=== PATIENT | female | born 1950 | race Caucasian/White ===

== ENCOUNTER 2017-04-05 12:43 | Inpatient (IN) ==
[2017-04-05 14:11] LABS: Basophils % 0.1 %; Hematocrit 27.2 % (35.3-44.9); Immature Granulocytes % 0.4 % (0-4); Lymphocytes # 0.9 K/mcL (0.6-4.6); Lymphocytes % 7.8 %; Mean Corpuscular HGB Conc 26.1 g/dL (31.6-35.5); Mean Corpuscular Hemoglobin 17.1 pg (28.0-33.3); Mean Corpuscular Volume 65.4 fL (83.0-100.0); Mean Platelet Volume 10.8 fL (9.4-12.4); Monocytes # 0.6 K/mcL (0.0-1.3); Monocytes % 5.3 %; Neutrophils # 9.6 K/mcL (1.6-8.9); Platelet Count 360 K/mcL (140-400); Red Blood Count 4.16 M/mcL (3.82-4.97); Red Cell Distribution Width 20.5 % (11.5-14.5); Segmented Neutrophils % 86.4 %
[2017-04-05 14:26] LABS: Alanine Aminotransferase 17 Units/L (0-55); Albumin 3.6 g/dL (3.5-5.0); Albumin/Globulin Ratio 0.9 (1.1-2.2); Alkaline Phosphatase 73 Units/L (38-126); Amylase 55 Units/L (25-125); Aspartate Amino Transferase 24 Units/L (5-34); BUN/Creatinine Ratio 14 (6-26); Bilirubin,Direct 0.4 mg/dL (0.0-0.5); Bilirubin,Indirect 0.5 mg/dL (0.0-1.2); Bilirubin,Total 0.9 mg/dL (0.2-1.2); Blood Urea Nitrogen 12 mg/dL (7-20); Carbon Dioxide 30 mEq/L (19-29); Chloride 102 mEq/L (98-109); Globulin 3.9 g/dL (2.4-3.5); Glucose 131 mg/dL (70-99); Lipase 21 Units/L (8-78); Osmolality,Calculated 292 (280-300); Potassium 3.1 mEq/L (3.5-4.5); Sodium 140 mEq/L (136-145); Total Protein 7.5 g/dL (6.0-8.3); eGFR For African Americans > 60 (> 60); eGFR For Non-African Americans > 60 (> 60)
[2017-04-05 14:42] LABS: Hemoglobin 7.1 g/dL (11.5-15.4)
[2017-04-05 14:43] LABS: Anisocytosis 1+ (Not Present); Hypochromasia Present (Not Present); Microcytosis Present (Not Present); Platelet Estimate Normal (Normal)
[2017-04-05] MEDS ORDERED: 0.9 % Sodium Chloride 1,000 ML IVC ONE (15:54)
[2017-04-05] MEDS ORDERED: Pantoprazole 40 MG VIAL IVP ONE (15:54)
[2017-04-05] MEDS ORDERED: Ondansetron 4 MG/2 ML VIAL IVP ONE (15:54)
[2017-04-05 17:22] LABS: Bilirubin,Urine Negative (Negative); Blood,Urine Negative (Negative); Clarity,Urine Cloudy (Clear); Color,Urine Dark Yellow (Yellow); Glucose,Urine (UA) Normal (Normal); Ketones,Urine Trace mg/dL (Negative); Leukocyte Esterase,Urine Negative (Negative); Nitrite,Urine Negative (Negative); PH,Urine 5.5 pH Units (5.0-8.0); Protein,Urine 30 mg/dL (Neg-Trace); Urobilinogen,Urine Normal (Normal)
[2017-04-05 17:24] LABS: Bacteria,Urine Moderate per hpf (None-Few); Hyaline Casts,Urine None Seen per lpf (None-Few); RBC,Urine 0-3 per hpf (0-3); Squamous Epithelial Cell,Urine Many per lpf (None-Few); WBC,Urine 0-3 per hpf (0-3)
[2017-04-05 19:14] LABS: INR 1.1; Prothrombin Time 12.4 Seconds (9.4-12.1)
[2017-04-05] MEDS ORDERED: Ondansetron 4 MG/2 ML VIAL IVP PRN (21:55)
[2017-04-05] MEDS ORDERED: *HR* Metoprolol 5 MG/5 ML VIAL IVP PRN (21:56)
[2017-04-05] MEDS ORDERED: *HR* Morphine 2 MG/ML SYRINGE IVP PRN (21:57)
[2017-04-05] MEDS: 0.9 % Sodium Chloride 1,000 ML IVC SCH (23:03)
--- NOTE | 2017-04-06 01:25 | Emergency Department Note ---
Disposition Clinical Impression: Bowel obstruction Qualifiers: Intestinal obstruction type: unspecified Qualified Code(s): K56.60 - Unspecified intestinal obstruction Disposition: Admitted As Inpatient Condition: Good General Adult HPI - General Chief complaint: ED Nausea/Vomiting/Diarrhea Stated complaint: nausea, vomiting Time Seen by Provider: 04/05/17 15:17 Source: patient Limitations: no limitations Nursing Notes Reviewed: Yes Vital Signs Reviewed: Yes - History of Present Illness HPI Narrative: This is a 58-year-old female with a history of colonic mass and previous resection by Dr. Sol presenting today with concern for nausea, vomiting, diarrhea. She lets her symptoms of been worsening for one week. She had known stricture previously in her colon and is concerned that there is possible an obstructive etiology. She has no fever, recent antibiotics use. Vital signs are stable on arrival. Pain Scale: 0 - Related Data Home Medications Medication Instructions Recorded Confirmed Aspirin [Lo-Dose Aspirin EC] 81 mg PO DAILY 04/05/17 04/05/17 Lisinopril [Zestril] 20 mg PO DAILY 04/05/17 04/05/17 Allergies Allergy/AdvReac Type Severity Reaction Status Date / Time No Known Allergies Allergy Verified 04/05/17 12:51 All systems ED: reviewed and negative except as stated. Past Medical History - Past Medical History Medical history: Reports: cancer, hypertension Surgical history: Reports: cholecystectomy Psychiatric history: Reports: no psych history - Social History Smoking Status: Never smoker Smokeless Tobacco Status: No Alcohol use: Reports: none Drug use: Reports: none Physical Exam - General Limitations: no limitations General appearance: alert - Head Head exam: atraumatic - Eye Eye exam: Present: normal appearance - ENT ENT exam: normal exam, normal oropharynx - Neck Neck exam: Present: normal inspection - Chest Chest inspection: Present: normal inspection - Respiratory Respiratory exam: Present: normal lung sounds bilaterally - Cardiovascular Cardiovascular exam: Present: regular rate, normal rhythm - Abdominal Exam Abdominal exam: Present: soft - Extremities Exam Extremities exam: Present: normal inspection - Expanded Lower Extremity Exam Hip/Pelvis exam: Present: normal inspection Neurovascular/Tendon exam: Present: normal capillary refill Gait: observed and normal - Back Exam Back exam: Present: normal inspection - Neurological Exam Neurological exam: Present: alert, oriented X3 - Psychiatric Psychiatric exam: Present: normal affect - Skin Skin exam: Present: warm, dry Course Vital Signs Temperature 98.1 F 04/05/17 12:53 Pulse Rate 87 04/05/17 12:53 Respiratory Rate 20 04/05/17 12:53 Blood Pressure 208/76 04/05/17 12:53 O2 Sat by Pulse Oximetry 99 04/05/17 12:53 Temperature 98.0 F 04/10/17 06:26 Pulse Rate 76 04/10/17 06:26 Respiratory Rate 17 04/10/17 06:26 Blood Pressure 169/82 04/10/17 06:26 O2 Sat by Pulse Oximetry 96 04/10/17 06:26 Oxygen Delivery Oxygen Delivery Room Air Medical Decision Making - MDM Narrative Medical decision making narrative: Female patient with previous colonic mass and previous resection who presents now with concern for nonspecific abdominal complaints. She has no true pain or peritonitis on arrival. She was found to subsequently have bowel obstruction after a CT scan with both IV and oral contrast was obtained. She does have evidence of colonic distention as well as obstruction at the anastomosis site. I discussed the case with the on-call surgeon who recommended placement of an NG tube. Additionally recommended obtaining a CEA level. Plan to admit to surgical services for further evaluation of bowel obstruction. - Medical Records Medical records reviewed: Yes I reviewed the patient's medical records. - Lab Data Lab results reviewed: Yes I reviewed the patient's lab results. Result diagrams: 04/10/17 05:32 04/10/17 05:32 Lab Results 04/05/17 04/05/17 04/05/17 Range/Units 14:00 14:01 14:01 WBC 11.1 (4.3-11.1) K/mcL RBC 4.16 (3.82-4.97) M/mcL Hgb 7.1 L (11.5-15.4) g/dL Hct 27.2 L (35.3-44.9) % MCV 65.4 L (83.0-100.0) fL MCH 17.1 L (28.0-33.3) pg MCHC 26.1 L (31.6-35.5) g/dL RDW 20.5 H (11.5-14.5) % Plt Count 360 (140-400) K/mcL MPV 10.8 (9.4-12.4) fL Immature Gran % 0.4 (0-4) % Seg Neutrophils % 86.4 % Lymphocytes % 7.8 % Monocytes % 5.3 % Eosinophils % 0.0 % Basophils % 0.1 % Neutrophils # 9.6 H (1.6-8.9) K/mcL Lymphocytes # 0.9 (0.6-4.6) K/mcL Monocytes # 0.6 (0.0-1.3) K/mcL Eosinophils # 0.0 (0.0-0.6) K/mcL Basophils # 0.0 (0.0-0.2) K/mcL Platelet Estimate Normal (Normal) Polychromasia (Not Present) Hypochromasia Present A (Not Present) Anisocytosis 1+ A (Not Present) Microcytosis Present A (Not Present) Rouleaux (Not Present) PT 12.4 H (9.4-12.1) Seconds INR 1.1 Sodium 140 (136-145) mEq/L Potassium 3.1 L (3.5-4.5) mEq/L Chloride 102 (98-109) mEq/L Carbon Dioxide 30 H (19-29) mEq/L BUN 12 (7-20) mg/dL Creatinine 0.84 (0.57-1.11) mg/dL Est GFR ( Amer) > 60 (> 60) Est GFR (Non-Af Amer) > 60 (> 60) BUN/Creatinine Ratio 14 (6-26) Glucose 131 H (70-99) mg/dL POC Glucose (58-89) Calculated Osmolality 292 (280-300) Lactic Acid (0.5-2.2) mmol/L Calcium 10.0 (8.6-10.8) mg/dL Total Bilirubin 0.9 (0.2-1.2) mg/dL Direct Bilirubin 0.4 (0.0-0.5) mg/dL Indirect Bilirubin 0.5 (0.0-1.2) mg/dL AST 24 (5-34) Units/L ALT 17 (0-55) Units/L Alkaline Phosphatase 73 (38-126) Units/L Serum Total Protein 7.5 (6.0-8.3) g/dL Albumin 3.6 (3.5-5.0) g/dL Globulin 3.9 H (2.4-3.5) g/dL Albumin/Globulin Ratio 0.9 L (1.1-2.2) Amylase 55 (25-125) Units/L Lipase 21 (8-78) Units/L Carcinoembryonic Ag 9.0 H (0-5.0) ng/mL Urine Color (Yellow) Urine Clarity (Clear) Urine pH (5.0-8.0) pH Units Ur Specific [place] (1.010-1.025) Urine Protein (Neg-Trace) mg/dL Urine Glucose (UA) (Normal) mg/dL Urine Ketones (Negative) mg/dL Urine Blood (Negative) Urine Nitrite (Negative) Urine Bilirubin (Negative) Urine Urobilinogen (Normal) mg/dL Ur Leukocyte Esterase (Negative) Urine Microscopic RBC (0-3) per hpf Urine Microscopic WBC (0-3) per hpf Ur Squamous Epith Cells (None-Few) per lpf Urine Bacteria (None-Few) per hpf Hyaline Casts (None-Few) per lpf Chromogranin A (0-95) ng/mL Blood Type Antibody Screen Crossmatch 04/05/17 04/05/17 04/05/17 Range/Units 16:11 17:05 18:31 WBC (4.3-11.1) K/mcL RBC (3.82-4.97) M/mcL Hgb (11.5-15.4) g/dL Hct (35.3-44.9) % MCV (83.0-100.0) fL MCH (28.0-33.3) pg MCHC (31.6-35.5) g/dL RDW (11.5-14.5) % Plt Count (140-400) K/mcL MPV (9.4-12.4) fL Immature Gran % (0-4) % Seg Neutrophils % % Lymphocytes % % Monocytes % % Eosinophils % % Basophils % % Neutrophils # (1.6-8.9) K/mcL Lymphocytes # (0.6-4.6) K/mcL Monocytes # (0.0-1.3) K/mcL Eosinophils # (0.0-0.6) K/mcL Basophils # (0.0-0.2) K/mcL Platelet Estimate (Normal) Polychromasia (Not Present) Hypochromasia (Not Present) Anisocytosis (Not Present) Microcytosis (Not Present) Rouleaux (Not Present) PT (9.4-12.1) Seconds INR Sodium (136-145) mEq/L Potassium (3.5-4.5) mEq/L Chloride (98-109) mEq/L Carbon Dioxide (19-29) mEq/L BUN (7-20) mg/dL Creatinine (0.57-1.11) mg/dL Est GFR ( Amer) (> 60) Est GFR (Non-Af Amer) (> 60) BUN/Creatinine Ratio (6-26) Glucose (70-99) mg/dL POC Glucose (58-89) Calculated Osmolality (280-300) Lactic Acid 1.2 (0.5-2.2) mmol/L Calcium (8.6-10.8) mg/dL Total Bilirubin (0.2-1.2) mg/dL Direct Bilirubin (0.0-0.5) mg/dL Indirect Bilirubin (0.0-1.2) mg/dL AST (5-34) Units/L ALT (0-55) Units/L Alkaline Phosphatase (38-126) Units/L Serum Total Protein (6.0-8.3) g/dL Albumin (3.5-5.0) g/dL Globulin (2.4-3.5) g/dL Albumin/Globulin Ratio (1.1-2.2) Amylase (25-125) Units/L Lipase (8-78) Units/L Carcinoembryonic Ag (0-5.0) ng/mL Urine Color Dark Yellow (Yellow) Urine Clarity Cloudy A (Clear) Urine pH 5.5 (5.0-8.0) pH Units Ur Specific [place] 1.030 H (1.010-1.025) Urine Protein 30 H (Neg-Trace) mg/dL Urine Glucose (UA) Normal (Normal) mg/dL Urine Ketones Trace H (Negative) mg/dL Urine Blood Negative (Negative) Urine Nitrite Negative (Negative) Urine Bilirubin Negative (Negative) Urine Urobilinogen Normal (Normal) mg/dL Ur Leukocyte Esterase Negative (Negative) Urine Microscopic RBC 0-3 (0-3) per hpf Urine Microscopic WBC 0-3 (0-3) per hpf Ur Squamous Epith Cells Many H (None-Few) per lpf Urine Bacteria Moderate H (None-Few) per hpf Hyaline Casts None Seen (None-Few) per lpf Chromogranin A (0-95) ng/mL Blood Type A NEGATIVE Antibody Screen NEGATIVE Crossmatch See Detail 04/05/17 04/06/17 04/06/17 Range/Units 23:56 05:17 10:46 WBC 8.7 (4.3-11.1) K/mcL RBC 3.75 L (3.82-4.97) M/mcL Hgb 6.4 L (11.5-15.4) g/dL Hct 24.6 L (35.3-44.9) % MCV 65.6 L (83.0-100.0) fL MCH 17.1 L (28.0-33.3) pg MCHC 26.0 L (31.6-35.5) g/dL RDW 20.2 H (11.5-14.5) % Plt Count 335 (140-400) K/mcL MPV 10.8 (9.4-12.4) fL Immature Gran % 0.5 (0-4) % Seg Neutrophils % 74.8 % Lymphocytes % 16.0 % Monocytes % 7.8 % Eosinophils % 0.7 % Basophils % 0.2 % Neutrophils # 6.5 (1.6-8.9) K/mcL Lymphocytes # 1.4 (0.6-4.6) K/mcL Monocytes # 0.7 (0.0-1.3) K/mcL Eosinophils # 0.1 (0.0-0.6) K/mcL Basophils # 0.0 (0.0-0.2) K/mcL Platelet Estimate Normal (Normal) Polychromasia 1+ A (Not Present) Hypochromasia Present A (Not Present) Anisocytosis 1+ A (Not Present) Microcytosis (Not Present) Rouleaux Present A (Not Present) PT (9.4-12.1) Seconds INR Sodium (136-145) mEq/L Potassium (3.5-4.5) mEq/L Chloride (98-109) mEq/L Carbon Dioxide (19-29) mEq/L BUN (7-20) mg/dL Creatinine (0.57-1.11) mg/dL Est GFR ( Amer) (> 60) Est GFR (Non-Af Amer) (> 60) BUN/Creatinine Ratio (6-26) Glucose (70-99) mg/dL POC Glucose 120 H 99 H (58-89) Calculated Osmolality (280-300) Lactic Acid (0.5-2.2) mmol/L Calcium (8.6-10.8) mg/dL Total Bilirubin (0.2-1.2) mg/dL Direct Bilirubin (0.0-0.5) mg/dL Indirect Bilirubin (0.0-1.2) mg/dL AST (5-34) Units/L ALT (0-55) Units/L Alkaline Phosphatase (38-126) Units/L Serum Total Protein (6.0-8.3) g/dL Albumin (3.5-5.0) g/dL Globulin (2.4-3.5) g/dL Albumin/Globulin Ratio (1.1-2.2) Amylase (25-125) Units/L Lipase (8-78) Units/L Carcinoembryonic Ag (0-5.0) ng/mL Urine Color (Yellow) Urine Clarity (Clear) Urine pH (5.0-8.0) pH Units Ur Specific [place] (1.010-1.025) Urine Protein (Neg-Trace) mg/dL Urine Glucose (UA) (Normal) mg/dL Urine Ketones (Negative) mg/dL Urine Blood (Negative) Urine Nitrite (Negative) Urine Bilirubin (Negative) Urine Urobilinogen (Normal) mg/dL Ur Leukocyte Esterase (Negative) Urine Microscopic RBC (0-3) per hpf Urine Microscopic WBC (0-3) per hpf Ur Squamous Epith Cells (None-Few) per lpf Urine Bacteria (None-Few) per hpf Hyaline Casts (None-Few) per lpf Chromogranin A (0-95) ng/mL Blood Type Antibody Screen Crossmatch 04/06/17 04/06/17 Range/Units 10:46 10:46 WBC (4.3-11.1) K/mcL RBC (3.82-4.97) M/mcL Hgb (11.5-15.4) g/dL Hct (35.3-44.9) % MCV (83.0-100.0) fL MCH (28.0-33.3) pg MCHC (31.6-35.5) g/dL RDW (11.5-14.5) % Plt Count (140-400) K/mcL MPV (9.4-12.4) fL Immature Gran % (0-4) % Seg Neutrophils % % Lymphocytes % % Monocytes % % Eosinophils % % Basophils % % Neutrophils # (1.6-8.9) K/mcL Lymphocytes # (0.6-4.6) K/mcL Monocytes # (0.0-1.3) K/mcL Eosinophils # (0.0-0.6) K/mcL Basophils # (0.0-0.2) K/mcL Platelet Estimate (Normal) Polychromasia (Not Present) Hypochromasia (Not Present) Anisocytosis (Not Present) Microcytosis (Not Present) Rouleaux (Not Present) PT (9.4-12.1) Seconds INR Sodium 141 (136-145) mEq/L Potassium 3.1 L (3.5-4.5) mEq/L Chloride 106 (98-109) mEq/L Carbon Dioxide 28 (19-29) mEq/L BUN 10 (7-20) mg/dL Creatinine 0.74 (0.57-1.11) mg/dL Est GFR ( Amer) > 60 (> 60) Est GFR (Non-Af Amer) > 60 (> 60) BUN/Creatinine Ratio 14 (6-26) Glucose 88 (70-99) mg/dL POC Glucose (58-89) Calculated Osmolality 290 (280-300) Lactic Acid (0.5-2.2) mmol/L Calcium 8.7 (8.6-10.8) mg/dL Total Bilirubin (0.2-1.2) mg/dL Direct Bilirubin (0.0-0.5) mg/dL Indirect Bilirubin (0.0-1.2) mg/dL AST (5-34) Units/L ALT (0-55) Units/L Alkaline Phosphatase (38-126) Units/L Serum Total Protein (6.0-8.3) g/dL Albumin (3.5-5.0) g/dL Globulin (2.4-3.5) g/dL Albumin/Globulin Ratio (1.1-2.2) Amylase (25-125) Units/L Lipase (8-78) Units/L Carcinoembryonic Ag (0-5.0) ng/mL Urine Color (Yellow) Urine Clarity (Clear) Urine pH (5.0-8.0) pH Units Ur Specific [place] (1.010-1.025) Urine Protein (Neg-Trace) mg/dL Urine Glucose (UA) (Normal) mg/dL Urine Ketones (Negative) mg/dL Urine Blood (Negative) Urine Nitrite (Negative) Urine Bilirubin (Negative) Urine Urobilinogen (Normal) mg/dL Ur Leukocyte Esterase (Negative) Urine Microscopic RBC (0-3) per hpf Urine Microscopic WBC (0-3) per hpf Ur Squamous Epith Cells (None-Few) per lpf Urine Bacteria (None-Few) per hpf Hyaline Casts (None-Few) per lpf Chromogranin A 157 H (0-95) ng/mL Blood Type Antibody Screen Crossmatch
[2017-04-06] MEDS: 0.9 % Sodium Chloride 1,000 ML IVC SCH ×2 (06:34→15:09)
[2017-04-06 11:10] LABS: Mean Corpuscular Hemoglobin 17.1 pg (28.0-33.3)
[2017-04-06 11:12] LABS: Basophils % 0.2 %; Eosinophils # 0.1 K/mcL (0.0-0.6); Eosinophils % 0.7 %; Hematocrit 24.6 % (35.3-44.9); Hemoglobin 6.4 g/dL (11.5-15.4); Immature Granulocytes % 0.5 % (0-4); Lymphocytes # 1.4 K/mcL (0.6-4.6); Mean Corpuscular Volume 65.6 fL (83.0-100.0); Mean Platelet Volume 10.8 fL (9.4-12.4); Monocytes # 0.7 K/mcL (0.0-1.3); Monocytes % 7.8 %; Neutrophils # 6.5 K/mcL (1.6-8.9); Platelet Count 335 K/mcL (140-400); Red Blood Count 3.75 M/mcL (3.82-4.97); Red Cell Distribution Width 20.2 % (11.5-14.5); Segmented Neutrophils % 74.8 %
[2017-04-06 11:23] LABS: BUN/Creatinine Ratio 14 (6-26); Blood Urea Nitrogen 10 mg/dL (7-20); Calcium 8.7 mg/dL (8.6-10.8); Carbon Dioxide 28 mEq/L (19-29); Chloride 106 mEq/L (98-109); Glucose 88 mg/dL (70-99); Osmolality,Calculated 290 (280-300); Potassium 3.1 mEq/L (3.5-4.5); Sodium 141 mEq/L (136-145); eGFR For African Americans > 60 (> 60); eGFR For Non-African Americans > 60 (> 60)
--- NOTE | 2017-04-06 11:24 | General Surg History&Physical ---
Date of Encounter: 04/06/17 Time of Encounter: 11:00 Assessment and Plan (1) History of colon cancer, stage III Current Visit: Yes Status: Acute The assessment and plan as outlined above was discussed with the patient and/or family members who expressed understanding and agreement. All questions were answered. discussed with patient and her that her CT scan shows a colon obstruction at the previous site of anastomosis of the colon. There are some enlarged lymph nodes in the area along with her elevated CEA is concerning for recurrent colon cancer causing the obstruction. Due to the obstruction we would be unable to prep her bowel for surgery and therefore surgical intervention to relieve the obstruction would be an exploratory laparotomy, colon resection and colostomy. She will need surgical intervention but it isnt emergent, colon is decompressing into small bowel and patient has ngt in place, she and her would like to talk today and will plan surgery tomorrow. (2) History of malignant carcinoid tumor of small intestine Current Visit: Yes Status: Acute The assessment and plan as outlined above was discussed with the patient and/or family members who expressed understanding and agreement. All questions were answered. discussed with patient and that I do not feel it is a recurrence of the carcinoid but will obtain chromogranin A and 24 hr 5HIAA level. discussed consulting oncology but they were ok wainting until we have further info from surgery (3) Colon obstruction Current Visit: Yes Status: Acute The assessment and plan as outlined above was discussed with the patient and/or family members who expressed understanding and agreement. All questions were answered. discussed with patient and her that her CT scan shows a colon obstruction at the previous site of anastomosis of the colon. There are some enlarged lymph nodes in the area along with her elevated CEA is concerning for recurrent colon cancer causing the obstruction. Due to the obstruction we would be unable to prep her bowel for surgery and therefore surgical intervention to relieve the obstruction would be an exploratory laparotomy, colon resection and colostomy. She will need surgical intervention but it isnt emergent, colon is decompressing into small bowel and patient has ngt in place, she and her would like to talk today and will plan surgery tomorrow. (4) HTN (hypertension) Current Visit: Yes Status: Chronic The assessment and plan as outlined above was discussed with the patient and/or family members who expressed understanding and agreement. All questions were answered. patient normally takes lisinopril but due to npo status and elevated BP will order scheduled hydralazine Qualifiers: Hypertension type: essential hypertension Qualified Code(s): I10 - Essential (primary) hypertension (5) Elevated CEA Current Visit: Yes Status: Acute The assessment and plan as outlined above was discussed with the patient and/or family members who expressed understanding and agreement. All questions were answered. discussed with patient and , concerning for recurrent colon cancer (6) Nausea & vomiting Current Visit: Yes Status: Acute The assessment and plan as outlined above was discussed with the patient and/or family members who expressed understanding and agreement. All questions were answered. prn antimetics, NGT, hob 30degrees Qualifiers: Vomiting type: unspecified Vomiting Intractability: non-intractable Qualified Code(s): R11.2 - Nausea with vomiting, unspecified History of Present Illness Chief complaint: nausea and vomiting HPI: Ms. Benito is a 66 year old female who comes in yesterday evening with nausea and vomiting. She states she has been having progressive symptoms for the last 3-4 months. She is having a lot of nausea almost daily with intermittent emesis. She is having diarrhea on and off for the last 3-4 months as well. She denies any bloating or abdominal distention. She has lost 30 lbs in the last year. She denies any melena or hematochezia. She has a history of colon cancer at the splenic flexure in 2008 and underwent a Transverse colectomy and received chemotherapy as her staging was T3c/N2a, stage 3B. She had a small bowel malignant carcionoid resected in 2013 and no additional therapy. She saw Dr Peña for her colon cancer in 2008. CT scan of abdomen and pelvis yesterday shows stricture/narrowing at colon anastomosis with several enlarged lymph nodes. There is either metastatic disease or an infarct at the spleen and a suspicious node in the chest. CEA 9.0. SHe is anemic with Hb 7.1. She has had no further colonoscopies after her colon resection to her knowledge. Past Med Surg Social Fam HX - Past Medical History Source: patient Medical history: cancer (small bowel malignant carcinoid 2013, stage 3B splenic flexure colon cancer 2008), hypertension Psychiatric history: no psych history - Past Surgical History Surgical History: cancer surgery (small bowel resection for carcinoid, transverse colectomy for colon cancer), cholecystectomy (open), colectomy ( transverese) - Social History Smoking Status: Never smoker Smokeless Tobacco Status: No Alcohol use: none Drug use: none Current living situation: Home - Independent, With Family - Family History Mother Living Status: Hx Family Cancer: Yes (bone) Medications and Allergies Aspirin [Lo-Dose Aspirin EC] 81 mg PO DAILY 04/05/17 [History] Lisinopril [Zestril] 20 mg PO DAILY 04/05/17 [History] Allergies No Known Allergies Allergy (Verified 04/05/17 12:51) Review of Systems All systems PM: reviewed and no additional remarkable complaints except as stated All systems PM: A 10-system review of systems was performed and is negative for pertinent findings except as documented above in the HPI. General Surgery Exam Initial Vital Signs Temp Pulse Resp BP Pulse Ox 98.1 F 87 20 208/76 99 04/05/17 12:53 04/05/17 12:53 04/05/17 12:53 04/05/17 12:53 04/05/17 12:53 - General physical appearance well nourished, no distress, no pain - Eyes PERRL, normal ocular movement - ENT normal mucosa, normocephalic - Neck trachea midline - Respiratory normal expansion, clear to auscultation - Cardiovascular Cardiovascular exam: Present: RRR, no murmurs/rubs/gallops - Abdomen Abdomen general surgery: Present: bowel sounds present, soft, non tender. Absent: distended, guarding, rebound - Integumentary Integumentary general surgery: Present: warm and dry, no abnormal pigmentation - Neurologic Present: CN 2-12 grossly intact - Musculoskeletal Present: normal posture - Psychiatric Psychiatric general surgery: Present: A&Ox3, speech is normal Results - Labs 04/05/17 14:01 04/05/17 14:01 Abnormal lab results Hgb 7.1 g/dL (11.5-15.4) L 04/05/17 14:01 Hct 27.2 % (35.3-44.9) L 04/05/17 14:01 MCV 65.4 fL (83.0-100.0) L 04/05/17 14:01 MCH 17.1 pg (28.0-33.3) L 04/05/17 14:01 MCHC 26.1 g/dL (31.6-35.5) L 04/05/17 14:01 RDW 20.5 % (11.5-14.5) H 04/05/17 14:01 Neutrophils # 9.6 K/mcL (1.6-8.9) H 04/05/17 14:01 Hypochromasia Present (Not Present) A 04/05/17 14:01 Anisocytosis 1+ (Not Present) A 04/05/17 14:01 Microcytosis Present (Not Present) A 04/05/17 14:01 PT 12.4 Seconds (9.4-12.1) H 04/05/17 14:00 Potassium 3.1 mEq/L (3.5-4.5) L 04/05/17 14:01 Carbon Dioxide 30 mEq/L (19-29) H 04/05/17 14:01 Glucose 131 mg/dL (70-99) H 04/05/17 14:01 POC Glucose 99 (58-89) H 04/06/17 05:17 Globulin 3.9 g/dL (2.4-3.5) H 04/05/17 14:01 Albumin/Globulin Ratio 0.9 (1.1-2.2) L 04/05/17 14:01 Carcinoembryonic Ag 9.0 ng/mL (0-5.0) H 04/05/17 14:01 Urine Clarity Cloudy (Clear) A 04/05/17 17:05 Ur Specific [place] 1.030 (1.010-1.025) H 04/05/17 17:05 Urine Protein 30 mg/dL (Neg-Trace) H 04/05/17 17:05 Urine Ketones Trace mg/dL (Negative) H 04/05/17 17:05 Ur Squamous Epith Cells Many per lpf (None-Few) H 04/05/17 17:05 Urine Bacteria Moderate per hpf (None-Few) H 04/05/17 17:05 All other labs normal. - Imaging CT scan - abdomen: report reviewed, image reviewed CT scan - pelvis: report reviewed, image reviewed (discussed with patient and her )
[2017-04-06] MEDS ORDERED: Naloxone 0.4 MG/ML INJ IVP PRN (11:42)
[2017-04-06] MEDS ORDERED: *HR* Morphine 2 MG/ML SYRINGE IVP PRN (11:45)
[2017-04-06 12:37] LABS: Platelet Estimate Normal (Normal)
[2017-04-06 12:38] LABS: Anisocytosis 1+ (Not Present); Polychromasia 1+ (Not Present); Rouleaux Present (Not Present)
[2017-04-06 12:39] LABS: Hypochromasia Present (Not Present)
[2017-04-06] MEDS: *HR* Heparin 5,000 UNIT/ML VIAL SQ SCH (18:12)
[2017-04-07 03:34] LABS: BUN/Creatinine Ratio 11 (6-26); Blood Urea Nitrogen 8 mg/dL (7-20); Calcium 8.5 mg/dL (8.6-10.8); Carbon Dioxide 26 mEq/L (19-29); Chloride 104 mEq/L (98-109); Glucose 100 mg/dL (70-99); Magnesium 1.5 mg/dL (1.6-2.6); Osmolality,Calculated 288 (280-300); Phosphorous 2.4 mg/dL (2.3-4.7); Potassium 2.9 mEq/L (3.5-4.5); Sodium 140 mEq/L (136-145); eGFR For African Americans > 60 (> 60); eGFR For Non-African Americans > 60 (> 60)
[2017-04-07 03:40] LABS: Basophils % 0.3 %; Hemoglobin 6.7 g/dL (11.5-15.4)
[2017-04-07 03:42] LABS: Eosinophils % 0.2 %; Hematocrit 25.9 % (35.3-44.9); Immature Granulocytes % 1.5 % (0-4); Lymphocytes # 0.8 K/mcL (0.6-4.6); Lymphocytes % 7.2 %; Mean Corpuscular HGB Conc 25.9 g/dL (31.6-35.5); Mean Corpuscular Hemoglobin 16.9 pg (28.0-33.3); Mean Corpuscular Volume 65.2 fL (83.0-100.0); Mean Platelet Volume 10.6 fL (9.4-12.4); Monocytes # 0.9 K/mcL (0.0-1.3); Monocytes % 7.9 %; Neutrophils # 9.5 K/mcL (1.6-8.9); Nucleated Red Blood Cells 0.2 /100 WBC (0); Platelet Count 352 K/mcL (140-400); Red Blood Count 3.97 M/mcL (3.82-4.97); Red Cell Distribution Width 19.9 % (11.5-14.5); Segmented Neutrophils % 82.9 %
[2017-04-07 04:21] LABS: Anisocytosis 1+ (Not Present); Hypochromasia Present (Not Present); Microcytosis Present (Not Present); Ovalocytes 1+ (Not Present); Platelet Estimate Normal (Normal); Polychromasia 1+ (Not Present)
[2017-04-07] MEDS: 0.9 % Sodium Chloride 1,000 ML IVC SCH ×2 (04:27→17:35)
[2017-04-07] MEDS: *HR* Heparin 5,000 UNIT/ML VIAL SQ SCH ×2 (05:18→17:35)
[2017-04-07] MEDS ORDERED: Potassium Chloride 40 MEQ, Lidocaine 1% 2 ML in D5% in Water 500 ML IVPB ONE (07:40)
[2017-04-07] MEDS ORDERED: Magnesium Sulfate 2 GM in D5% in Water 100 ML IVPB ONE (07:40)
[2017-04-07] MEDS ORDERED: 0.9 % Sodium Chloride 250 ML ONE ×2 (08:44→11:33)
[2017-04-07] MEDS ORDERED: Pantoprazole 40 MG VIAL IVP SCH (09:00)
[2017-04-07] MEDS ORDERED: *HR* Midazolam HCl 2 MG/2 ML VIAL ONE (09:05)
[2017-04-07] MEDS ORDERED: *HR* Rocuronium Bromide 50 MG/5 ML VIAL ONE ×2 (09:05→15:08)
[2017-04-07] MEDS ORDERED: *HR* FentaNYL (PF) 100 MCG/2 ML VIAL ONE (09:05)
[2017-04-07] MEDS ORDERED: Lidocaine -MPF 2% 2 ML VIAL ONE (09:05)
[2017-04-07] MEDS ORDERED: *HR* Propofol 200 MG/20 ML VIAL IVP ONE (09:05)
--- NOTE | 2017-04-07 12:52 | Anesthesia Evaluation PreOp ---
Date of Encounter: 04/07/17 Time of Encounter: 12:50 - Past History Planned Operation: Colon Resection Cardiac History: HTN Pulmonary History: Denies Any Significant HX [employer] History: Denies Any Significant HX Other Medical History: Other (H/O colon CA S/P resection/chemo) Anesthesia History: No Prior Anesthetic Complications, Past Anesthesia Alcohol Use: none Drug use: none Medications and Allergies Aspirin [Lo-Dose Aspirin EC] 81 mg PO DAILY 04/05/17 [History] Lisinopril [Zestril] 20 mg PO DAILY 04/05/17 [History] Allergies No Known Allergies Allergy (Verified 04/05/17 12:51) - Meds/Allergy Pre-op Review Medications Reviewed: Yes Allergies Reviewed: Yes Beta Blockers on Current Med List: No Anesthesia Results - Labs 04/07/17 02:41 04/07/17 02:41 - Imaging EKG: report reviewed (12/16/2013 SR) Anesthesia Exam Vital Signs/O2 Sat, Most Current Temp Pulse Resp BP Pulse Ox 98.3 F 92 16 150/79 97 04/07/17 12:05 04/07/17 12:05 04/07/17 12:05 04/07/17 12:05 04/07/17 12:05 Height: 5'2''/1.57 m Weight: 194 lbs/88.178 kg NPO (# of Hours): 8 Pain Scale: 0 Pain Scale Used: Numeric (1 - 10) - HEENT Pupil (Motor): EOMI Mallampati: III Teeth: Normal Oral Opening: Greater than 3 - [employer] LOC: Oriented [employer] Motor: Normal RUE, Normal LUE, Normal RLE, Normal LLE, Normal Face [employer] Sensory: Normal: RUE, LUE, RLE, LLE, Face - Cardiac Rhythm: Regular Murmur: Systolic - Pulmonary Breath Sounds: bilateral Clear Respiratory Effort: Symmetrical Anesthesia Assess/Plan ASA Score: 3 Modified [place] Scale for Level of Consciousness: Cooperative, oriented, and tranquil Anesthetic Plan: General Monitoring Plan: Standard Monitors Recovery Plan: PACU
[2017-04-07] MEDS ORDERED: CefOXitin 2,000 MG VIAL IVPB ONE (13:40)
[2017-04-07] MEDS ORDERED: Dexamethasone 4 MG/ML VIAL ONE (14:04)
[2017-04-07] MEDS ORDERED: Ondansetron 4 MG/2 ML VIAL ONE (14:04)
[2017-04-07] MEDS ORDERED: Neostigmine Methylsulfate 3 MG/3 ML SYRINGE ONE (14:05)
[2017-04-07] MEDS ORDERED: cefOXitin 2,000 MG in D5% in Water (Mini-Bag+) 100 ML IVPB ONE (14:10)
[2017-04-07] MEDS ORDERED: Ondansetron 4 MG/2 ML VIAL IVP ONE (16:03)
[2017-04-07] MEDS ORDERED: *HR* HYDROmorphone (PF) 1 MG/ML SYRINGE IVP PRN (16:03)
[2017-04-07] MEDS ORDERED: *HR* Promethazine 25 MG/ML VIAL IVP PRN (16:03)
[2017-04-07] MEDS ORDERED: *HR* Morphine 10 MG/ML VIAL ONE (16:04)
--- NOTE | 2017-04-07 16:39 | Operative Note ---
Date of procedure: 04/07/17 Pre-op diagnosis: Colon obstruction Post-op diagnosis: same Procedure: Exploratory laparotomy, lysis of adhesions, colectomy (anatomotic stricture/ tumor), appendectomy Complications: none immediate Anesthesia: ANGELINE Surgeon: Cassie Barry Stoker Erector And Servicer: Elizabeth Ziegler Estimated blood loss (cc): 50 Urine output (cc): 200 Specimen: see operative note Condition: stable Disposition: PACU Procedure in Detail: specimens: appendix, small bowel mesentary nodules, colectomy (transverse colon/ sigmoid anastomosis stricture/tumor) Patient was brought to the operating suite and placed supine on the operating table. Sign in was performed and everyone was in agreement. Anesthesia was induced and patient was endotracheally intubated by anesthesia without incident. Patient already had an NG tube and a Sanderson catheter. The abdomen was prepped and draped in the usual sterile fashion. A timeout was performed again everyone was in agreement. A midline incision above the umbilicus was made through the skin into the subcutaneous tissue with a 15 blade. We dissected through the subcutaneous tissue to the anterior abdominal wall linea alba fascia with the Bovie. The fascia was opened with the Bovie and the midline while Kocur's were placed on either side of the fascia for retraction. The midline incision was carried down just below the umbilicus. The area of anastomotic stricture was in the left upper quadrant and easily palpable. Small bowel to small bowel and small bowel to colon and anastomotic adhesions were taken down with Metzenbaum scissors. There was an wide opening in the sigmoid colon mesentery below the area of anastomotic stricture/tumor and the fat surrounding the sigmoid was cleared with the Bovie and an area at least 5 cm distal to the anastomosis. The sigmoid colon was transected with a linear TAHMINA-75 millimeters stapler using a blue load. The omentum was taken off the stomach starting at the anastomosis and proceeding proximally, this was accomplished with gentle blunt dissection, the Bovie, and the impact LigaSure. The hepatic flexure was taken down with gentle blunt dissection and using the Bovie. Due to the patient's previous open cholecystectomy the mesentery of the proximal transverse colon was adherent to the inferior edge of the liver and this was taken down with the Bovie. The proximal colon was significantly dilated due to the obstruction. An opening in the proximal transverse colon mesentery was made with gentle blunt dissection. The proximal transverse colon at least 5 cm proximal to the anastomotic stricture/tumor was transected with a contour stapler using a blue load. Some air and liquid stool leaked through the staple line in the middle and was oversewn with 3 separate 3-0 silk figure- of-eight stitches. Using the impact LigaSure the mesentery of the transverse colon including the middle colic vessels were taken. The specimen was marked with a silk stitch proximally and placed off to the back table for pathology. The abdomen was copiously irrigated with sterile saline. The appendix was located on a Joseph placed on this. Using a hemostat we dissected between the appendix at the base of the cecum and the mesentery. The appendix was transected with a linear TAHMINA-75 stapler using a blue load at the base of the cecum. The mesoappendix was transected with the IMPAC LigaSure. The appendix is placed off to the back table for pathology. The small bowel was run from the terminal ileum to the ligament of Treitz. There were several small bowel mesentery nodules which were removed with Metzenbaum scissors and placed off to the back table for pathology. The proximal transverse colon appeared to reach well to the anterior abdominal wall for the creation of the colostomy. The distal /remaining sigmoid colon was tacked to the lateral and the anterior abdominal wall with 2 separate 3-0 silk interrupted stitches bilaterally. Kocur 's were placed on the right fascia for retraction and a circular disc of skin was excised first with a 15 blade circumferentially through the skin and the subcutaneous tissue and then with the Bovie at the lateral edge of the right rectus at a place that was previously marked with the patient sitting up on the edge of the bed. Using the Bovie dissecting through the anterior rectus fascia in the direction of fibers cruciate incision was made. He dissected through the rectus muscle which was then through the posterior rectus muscle with the Bovie. The opening in the rectus muscle accommodated 2 fingers well. The proximal transverse colon was pulled through the opening in the rectus muscle with a Egnar. The abdomen was copiously irrigated with sterile saline. One sheet of Seprafilm was placed under the abdominal cavity beneath the midline incision. The midline fascia was closed with 2 separate #1 non-looped PDS running stitches meeting in the middle. The subcutaneous tissue was copiously irrigated with sterile saline. 3-0 Vicryl interrupted stitches were used to approximate the subcutaneous tissue. Leicester were used to close the skin. Ioban was placed across the midline incision. 3 Babcocks were placed along the proximal transverse colon staple line. In the staple line was resected with heavy curved Metzenbaum scissors. The transected bowel bled which required control with the Bovie. The colostomy was created with 3-0 Vicryl interrupted stitches including full-thickness of the colon wall to the subcuticular tissue circumferentially. WHITE's were used to prep the skin around the colostomy and a faceplate was trimmed to accommodate the colostomy which was then placed in the abdomen along with the colostomy appliance bag. 4 x 4 gauze and Medipore tape were used as a midline dressing. The NG tube was removed. The Sanderson catheter remained. Patient was awoken in the operating suite and extubated by anesthesia without incident. She tolerated the procedure well. She was taken to PACU in stable condition.
[2017-04-07] MEDS ORDERED: *HR* Morphine 2 MG/ML SYRINGE IVP PRN (16:40)
[2017-04-07] MEDS ORDERED: Ondansetron 4 MG/2 ML VIAL IVP PRN (16:40)
[2017-04-07] MEDS ORDERED: *HR* OxyCODONE/APAP 5/325 TABLET PO PRN (16:40)
[2017-04-07] MEDS ORDERED: Naloxone 0.4 MG/ML INJ IVP PRN (16:40)
--- NOTE | 2017-04-07 17:00 | Anesthesia Evaluation Post Op ---
Date of Encounter: 04/07/17 Time of Encounter: 17:00 - Vital Signs Vital Signs: Vital Signs/O2 Sat, Most Current Temp Pulse Resp BP Pulse Ox 100 F H 93 22 122/59 96 04/07/17 16:35 04/07/17 16:55 04/07/17 16:55 04/07/17 16:55 04/07/17 16:55 - Lungs Lungs: Clear Ascult./Percussion - Airway Airway: Non-obstructed - Cardiovascular Regular Rate - Mental Status Mental Status: Asleep with brisk response to light stimulation - Pain Pain Scale: 4 Pain Scale used: Numeric (1 - 10) - Nausea Vomiting Nausea Vomiting: Not Present - Hydration Hydration: NPO, Sanderson catheter - Discharge PostOp Status: Transfer Patient to floor
[2017-04-08] MEDS: 0.9 % Sodium Chloride 1,000 ML IVC SCH (02:11)
[2017-04-08] MEDS: *HR* Heparin 5,000 UNIT/ML VIAL SQ SCH ×2 (05:35→18:06)
[2017-04-08 05:38] LABS: Basophils % 0.1 %; Mean Corpuscular Volume 70.3 fL (83.0-100.0)
[2017-04-08 05:40] LABS: Hematocrit 32.6 % (35.3-44.9); Hemoglobin 9.2 g/dL (11.5-15.4); Immature Granulocytes % 0.6 % (0-4); Lymphocytes # 0.8 K/mcL (0.6-4.6); Lymphocytes % 5.6 %; Mean Corpuscular HGB Conc 28.2 g/dL (31.6-35.5); Mean Corpuscular Hemoglobin 19.8 pg (28.0-33.3); Mean Platelet Volume 10.8 fL (9.4-12.4); Monocytes # 1.3 K/mcL (0.0-1.3); Monocytes % 8.6 %; Neutrophils # 12.7 K/mcL (1.6-8.9); Platelet Count 345 K/mcL (140-400); Red Blood Count 4.64 M/mcL (3.82-4.97); Red Cell Distribution Width 24.7 % (11.5-14.5); Segmented Neutrophils % 85.1 %
[2017-04-08 05:51] LABS: BUN/Creatinine Ratio 16 (6-26); Blood Urea Nitrogen 13 mg/dL (7-20); Calcium 8.5 mg/dL (8.6-10.8); Carbon Dioxide 26 mEq/L (19-29); Chloride 107 mEq/L (98-109); Glucose 114 mg/dL (70-99); Magnesium 1.7 mg/dL (1.6-2.6); Osmolality,Calculated 291 (280-300); Potassium 3.4 mEq/L (3.5-4.5); Sodium 140 mEq/L (136-145); eGFR For African Americans > 60 (> 60); eGFR For Non-African Americans > 60 (> 60)
[2017-04-08 05:53] LABS: Phosphorous 3.7 mg/dL (2.3-4.7)
[2017-04-08 05:59] LABS: Anisocytosis 3+ (Not Present); Microcytosis Present (Not Present); Platelet Estimate Normal (Normal); Reactive Lymphocytes Present (Not Present)
[2017-04-08 06:00] LABS: Polychromasia 1+ (Not Present)
[2017-04-08] MEDS ORDERED: D5% in 0.45% NACL w KCl 20 MEQ/1,000 ML MLS IVC SCH ×2 (08:15→14:21)
[2017-04-08] MEDS ORDERED: Piperacillin/Tazobactam 3.375 GM in D5% in Water (Mini-Bag+) 100 ML IVPB SCH (10:00)
[2017-04-08] MEDS: Pantoprazole 40 MG VIAL IVP SCH (10:08)
[2017-04-08] MEDS: Piperacillin/Tazobactam 3.375 GM in D5% in Water (Mini-Bag+) 100 ML IVPB SCH ×3 (10:31→23:08)
--- NOTE | 2017-04-08 14:24 | General Surgery Progress Note ---
<Linda Zimmer Meenakshi - Last Filed: 04/08/17 14:29> Date of Encounter: 04/08/17 Time of Encounter: 14:00 - Assessment and Plan (1) Colon obstruction Current Visit: Yes Status: Acute POD #1 Exploratory laparotomy, lysis of adhesions, colectomy (anatomotic stricture/tumor), appendectomy Advance to full liquids today IV antibiotics- Zosyn IV fluids- decreased to 60ml/hour Supportive care and pain control discontinue Faye catheter Incentive spirometer every 1 hour while awake increase activity as tolerated repeat a.m. labs Pathology pending (2) History of colon cancer, stage III Current Visit: Yes Status: Acute POD #1 Exploratory laparotomy, lysis of adhesions, colectomy (anatomotic stricture/tumor), appendectomy Await pathology (3) History of malignant carcinoid tumor of small intestine Current Visit: Yes Status: Acute Dr. Barry discussed with patient and that she does not feel it is a recurrence of the carcinoid but will obtain chromogranin A and 24 hr 5HIAA level. discussed consulting oncology but they were ok wainting until we have further info from surgery (4) HTN (hypertension) Current Visit: Yes Status: Chronic Mildly hypertensive Add home dose of lisinopril Continue metoprolol IV every 6 hours prn Continue to monitor and adjust as necessary Qualifiers: Hypertension type: essential hypertension Qualified Code(s): I10 - Essential (primary) hypertension (5) DVT prophylaxis Current Visit: Yes Status: Acute heparin 5000 units subcutaneous twice daily for DVT prophylaxis Subjective Patient reports: feels better, still having pain (post surgical pain), tolerating liquids well, flatus, bowel movement (via colostomy), afebrile Objective Vital Signs - Last 8 Hours Temp Pulse Resp BP Pulse Ox 04/08/17 11:51 98.3 F 62 17 154/83 94 04/08/17 08:10 98.5 F 83 17 143/79 95 Intake and Output 04/07/17 04/08/17 04/08/17 23:59 07:59 15:59 Intake Total 0 / 0 1000 / 1000 1000 / 1000 Output Total 675 / 675 250 / 250 100 / 100 Balance -675 / -675 750 / 750 900 / 900 Intake: IV Fluids 1000 / 1000 760 / 760 0.9 % Sodium Chloride 1, 1000 / 1000 000 ML @ 80 mls/hr IVC . [id number] [facility] Rx#: [id number] Zosyn 3.375 GM In 100 / 100 Dextrose 5% (Minibag+) 100 ML 100 ML @ 25 mls/hr IVPB Q6H [facility] Rx#: [id number] Oral 0 / 0 240 / 240 Output: Urine 425 / 425 Stool 100 / 100 150 / 150 Estimated Blood Loss 50 / 50 Catheter 100 / 100 100 / 100 100 / 100 Other: Meal Clear Breakfast Percent of Meal Consumed 0% 50% Weight 89.074 kg Blood Glucose* 163 Patient Weight 04/08/17 23:59 Weight 89.074 kg - General physical appearance well developed, well nourished, no distress - Eyes normal ocular movement - ENT normal mucosa, atraumatic, normocephalic - Neck Neck exam: trachea midline - Respiratory normal respiratory effort, clear to auscultation - Cardiovascular Cardiovascular exam: Present: RRR - Abdomen Abdomen: Present: bowel sounds present, soft, tender (expected post-operative tenderness), wound (Colostomy pink and moist with flatus and soft, brown stool noted) - Incision Incision: Present: clean and dry, intact - Genitourinary other (faye catheter to SD with clear, yellow urine noted) - Neurologic CN 2-12 grossly intact - Psychiatric oriented to time, oriented to person, oriented to place, speech is normal, memory intact - Labs 04/08/17 05:14 04/08/17 05:14 Diabetes panel 04/08/17 Range/Units 05:14 Sodium 140 (136-145) mEq/L Potassium 3.4 L (3.5-4.5) mEq/L Chloride 107 (98-109) mEq/L Carbon Dioxide 26 (19-29) mEq/L BUN 13 (7-20) mg/dL Creatinine 0.80 (0.57-1.11) mg/dL Glucose 114 H (70-99) mg/dL Calcium 8.5 L (8.6-10.8) mg/dL Calcium panel 04/08/17 Range/Units 05:14 Calcium 8.5 L (8.6-10.8) mg/dL Phosphorus 3.7 D (2.3-4.7) mg/dL Pituitary panel 04/08/17 Range/Units 05:14 Sodium 140 (136-145) mEq/L Potassium 3.4 L (3.5-4.5) mEq/L Chloride 107 (98-109) mEq/L Carbon Dioxide 26 (19-29) mEq/L BUN 13 (7-20) mg/dL Creatinine 0.80 (0.57-1.11) mg/dL Glucose 114 H (70-99) mg/dL Calcium 8.5 L (8.6-10.8) mg/dL Adrenal panel 04/08/17 Range/Units 05:14 Sodium 140 (136-145) mEq/L Potassium 3.4 L (3.5-4.5) mEq/L Chloride 107 (98-109) mEq/L Carbon Dioxide 26 (19-29) mEq/L BUN 13 (7-20) mg/dL Creatinine 0.80 (0.57-1.11) mg/dL Glucose 114 H (70-99) mg/dL Calcium 8.5 L (8.6-10.8) mg/dL - VTE Documentation of Mechanical Device: Intermittent pneumatic compression device Consult Discharge Plan - Plan Referrals: Hilary Henriquez DO [Partnered Physician] - 04/17/17 9:00 am - Attending Attestation I examined this patient and my medical decision-making was reviewed with the [employer] WE[employer]HER/PA/Advanced Practice Nurse/Resident Physician. I agree with the documented findings, disposition and treatment plan as described except to the extent set forth below. <Cassie Barry - Last Filed: 04/09/17 09:32> Date of Encounter: 04/08/17 - Assessment and Plan (1) History of colon cancer, stage III Current Visit: Yes Status: Acute (2) History of malignant carcinoid tumor of small intestine Current Visit: Yes Status: Acute (3) Colon obstruction Current Visit: Yes Status: Acute await pathology colostomy - pink/viable, with stool output adv diet to full, no nausea decrease IVF prn pain control, start po pain meds gi/dvt prophylasix labs with increased wbc - secondary to surgery, monitor OOB to chair with meals (4) HTN (hypertension) Current Visit: Yes Status: Chronic Qualifiers: Hypertension type: essential hypertension Qualified Code(s): I10 - Essential (primary) hypertension (5) Elevated CEA Current Visit: Yes Status: Acute elevated cea 9 Subjective Patient reports: no new complaints, feels better, still having pain, tolerating liquids well, flatus, bowel movement, afebrile Objective Vital Signs - Last 8 Hours Temp Pulse Resp BP Pulse Ox 04/09/17 06:42 98.3 F 79 16 167/80 94 04/09/17 05:10 98.5 F 78 18 160/82 95 Intake and Output 04/08/17 04/09/17 04/09/17 23:59 07:59 15:59 Intake Total 420 / 420 765 / 765 Output Total 1025 / 1025 550 / 550 Balance -605 / -605 215 / 215 Intake: IV Fluids 100 / 100 765 / 765 KCl 20mEq IN D5%-0.45 665 / 665 NACL 20 meq In 1,000 ml @ 75 mls/hr IVC .[id number] [facility] Rx#:[id number] Zosyn 3.375 GM In 100 / 100 100 / 100 Dextrose 5% (Minibag+) 100 ML 100 ML @ 25 mls/hr IVPB Q6H [facility] Rx#: [id number] Oral 320 / 320 Output: Urine 550 / 550 200 / 200 Stool 475 / 475 350 / 350 Other: Meal Dinner Percent of Meal Consumed 90% Stool Consistency liquid liquid Stool Color Brown Brown Dark Red Blood Dark Red Blood Weight 90.45 kg Patient Weight 04/09/17 23:59 Weight 90.45 kg - General physical appearance well developed, well nourished, no distress - Eyes PERRL, normal ocular movement - ENT normal mucosa, atraumatic - Neck Neck exam: trachea midline - Respiratory normal respiratory effort, clear to auscultation - Cardiovascular Cardiovascular exam: Present: RRR, no murmurs/rubs/gallops - Abdomen Abdomen: Present: bowel sounds present, soft, tender, wound - Genitourinary other - Integumentary no rash, no growths - Neurologic CN 2-12 grossly intact - Musculoskeletal normal posture - Psychiatric oriented to time, oriented to person, oriented to place - Labs 04/09/17 05:16 04/09/17 05:16 Diabetes panel 04/09/17 Range/Units 05:16 Sodium 138 (136-145) mEq/L Potassium 3.3 L (3.5-4.5) mEq/L Chloride 105 (98-109) mEq/L Carbon Dioxide 25 (19-29) mEq/L BUN 9 (7-20) mg/dL Creatinine 0.77 (0.57-1.11) mg/dL Glucose 103 H (70-99) mg/dL Calcium 8.4 L (8.6-10.8) mg/dL Calcium panel 04/09/17 Range/Units 05:16 Calcium 8.4 L (8.6-10.8) mg/dL Pituitary panel 04/09/17 Range/Units 05:16 Sodium 138 (136-145) mEq/L Potassium 3.3 L (3.5-4.5) mEq/L Chloride 105 (98-109) mEq/L Carbon Dioxide 25 (19-29) mEq/L BUN 9 (7-20) mg/dL Creatinine 0.77 (0.57-1.11) mg/dL Glucose 103 H (70-99) mg/dL Calcium 8.4 L (8.6-10.8) mg/dL Adrenal panel 04/09/17 Range/Units 05:16 Sodium 138 (136-145) mEq/L Potassium 3.3 L (3.5-4.5) mEq/L Chloride 105 (98-109) mEq/L Carbon Dioxide 25 (19-29) mEq/L BUN 9 (7-20) mg/dL Creatinine 0.77 (0.57-1.11) mg/dL Glucose 103 H (70-99) mg/dL Calcium 8.4 L (8.6-10.8) mg/dL - Attending Attestation I examined this patient and my medical decision-making was reviewed with the [employer]HER/PA/Advanced Practice Nurse/Resident Physician. I agree with the documented findings, disposition and treatment plan as described except to the extent set forth below.
[2017-04-08] MEDS: Lisinopril 20 MG TABLET PO SCH (14:41)
[2017-04-08] MEDS: *HR* Metoprolol 5 MG/5 ML VIAL IVP PRN (20:18)
[2017-04-09] MEDS: *HR* Metoprolol 5 MG/5 ML VIAL IVP PRN (05:18)
[2017-04-09] MEDS: *HR* Heparin 5,000 UNIT/ML VIAL SQ SCH ×2 (05:18→17:31)
[2017-04-09 06:02] LABS: Basophils % 0.2 %; Eosinophils % 0.9 %; Hemoglobin 8.7 g/dL (11.5-15.4); Immature Granulocytes % 0.6 % (0-4); Red Cell Distribution Width 25.2 % (11.5-14.5)
[2017-04-09 06:03] LABS: Eosinophils # 0.1 K/mcL (0.0-0.6); Hematocrit 31.8 % (35.3-44.9); Lymphocytes # 1.2 K/mcL (0.6-4.6); Lymphocytes % 11.4 %; Mean Corpuscular HGB Conc 27.4 g/dL (31.6-35.5); Mean Corpuscular Hemoglobin 19.4 pg (28.0-33.3); Mean Corpuscular Volume 70.8 fL (83.0-100.0); Mean Platelet Volume 10.3 fL (9.4-12.4); Monocytes % 9.3 %; Neutrophils # 8.1 K/mcL (1.6-8.9); Platelet Count 326 K/mcL (140-400); Red Blood Count 4.49 M/mcL (3.82-4.97); Segmented Neutrophils % 77.6 %
[2017-04-09 06:15] LABS: BUN/Creatinine Ratio 12 (6-26); Blood Urea Nitrogen 9 mg/dL (7-20); Calcium 8.4 mg/dL (8.6-10.8); Carbon Dioxide 25 mEq/L (19-29); Chloride 105 mEq/L (98-109); Glucose 103 mg/dL (70-99); Osmolality,Calculated 285 (280-300); Potassium 3.3 mEq/L (3.5-4.5); Sodium 138 mEq/L (136-145); eGFR For African Americans > 60 (> 60); eGFR For Non-African Americans > 60 (> 60)
[2017-04-09 06:36] LABS: Anisocytosis 1+ (Not Present); Hypochromasia Present (Not Present); Microcytosis Present (Not Present); Platelet Estimate Normal (Normal); Polychromasia 1+ (Not Present)
[2017-04-09] MEDS: Lisinopril 20 MG TABLET PO SCH (09:35)
[2017-04-09] MEDS: Pantoprazole 40 MG VIAL IVP SCH (09:35)
--- NOTE | 2017-04-09 15:10 | General Surgery Progress Note ---
Date of Encounter: 04/09/17 Time of Encounter: 15:00 - Assessment and Plan (1) History of colon cancer, stage III Current Visit: Yes Status: Acute (2) History of malignant carcinoid tumor of small intestine Current Visit: Yes Status: Acute (3) Colon obstruction Current Visit: Yes Status: Acute await pathology colostomy - pink/viable, with stool output adv diet to regular has liquid stool output - start fiber supplement dc IVF prn pain control, start po pain meds gi/dvt prophylasix labs normal today, monitor OOB to chair with meals (4) HTN (hypertension) Current Visit: Yes Status: Chronic lisinopril started yesterday Qualifiers: Hypertension type: essential hypertension Qualified Code(s): I10 - Essential (primary) hypertension (5) Elevated CEA Current Visit: Yes Status: Acute elevated cea 9 awaiting for pathology Subjective Narrative: no nausea ostomy with liquid output tolerated fulls minimal pain getting out of bed by herself Objective Vital Signs - Last 8 Hours Temp Pulse Resp BP Pulse Ox 04/09/17 12:20 98.6 F 82 16 149/83 96 Intake and Output 04/08/17 04/09/17 04/09/17 23:59 07:59 15:59 Intake Total 420 / 420 765 / 765 1388 / 1388 Output Total 1025 / 1025 550 / 550 950 / 950 Balance -605 / -605 215 / 215 438 / 438 Intake: IV Fluids 100 / 100 765 / 765 548 / 548 KCl 20mEq IN D5%-0.45 665 / 665 548 / 548 NACL 20 meq In 1,000 ml @ 60 mls/hr IVC .[id number] [facility] Rx#:[id number] Zosyn 3.375 GM In 100 / 100 100 / 100 Dextrose 5% (Minibag+) 100 ML 100 ML @ 25 mls/hr IVPB Q6H [facility] Rx#: [id number] Oral 320 / 320 840 / 840 Output: Urine 550 / 550 200 / 200 950 / 950 Stool 475 / 475 350 / 350 Other: Meal Dinner Lunch Percent of Meal Consumed 90% 90% Stool Consistency liquid liquid Stool Color Brown Brown Dark Red Blood Dark Red Blood Weight 90.45 kg Patient Weight 04/09/17 23:59 Weight 90.45 kg - General physical appearance well developed, well nourished, no distress - Eyes PERRL, normal ocular movement - ENT normal mucosa - Neck Neck exam: trachea midline - Respiratory normal respiratory effort - Cardiovascular Cardiovascular exam: Present: RRR - Abdomen Abdomen: Present: bowel sounds present, soft, non tender (appropriate post op tenderness) Additional Comments: colostomy -pink and viable - Incision Incision: Present: clean and dry, intact - Integumentary no rash, no growths - Neurologic CN 2-12 grossly intact - Musculoskeletal normal posture - Psychiatric oriented to time, oriented to person, memory intact - Labs 04/09/17 05:16 04/09/17 05:16 Short CBC 04/09/17 Range/Units 05:16 WBC 10.4 (4.3-11.1) K/mcL Hgb 8.7 L (11.5-15.4) g/dL Hct 31.8 L (35.3-44.9) % Plt Count 326 (140-400) K/mcL Neutrophils # 8.1 (1.6-8.9) K/mcL BMP 04/09/17 Range/Units 05:16 Sodium 138 (136-145) mEq/L Potassium 3.3 L (3.5-4.5) mEq/L Chloride 105 (98-109) mEq/L Carbon Dioxide 25 (19-29) mEq/L BUN 9 (7-20) mg/dL Creatinine 0.77 (0.57-1.11) mg/dL Glucose 103 H (70-99) mg/dL Calcium 8.4 L (8.6-10.8) mg/dL Vital Signs Temp Pulse Resp BP Pulse Ox 04/09/17 12:20 98.6 F 82 16 149/83 96 04/09/17 06:42 98.3 F 79 16 167/80 94 04/09/17 05:10 98.5 F 78 18 160/82 95 04/09/17 00:14 98.6 F 87 18 164/80 94 04/08/17 19:32 98.6 F 88 20 165/75 95 04/08/17 15:40 98.8 F 90 17 165/90 95 Intake and Output 04/08/17 04/09/17 04/09/17 23:59 07:59 15:59 Intake Total 420 / 420 765 / 765 1388 / 1388 Output Total 1025 / 1025 550 / 550 950 / 950 Balance -605 / -605 215 / 215 438 / 438 Intake: IV Fluids 100 / 100 765 / 765 548 / 548 KCl 20mEq IN D5%-0.45 665 / 665 548 / 548 NACL 20 meq In 1,000 ml @ 60 mls/hr IVC .[id number] [facility] Rx#:[id number] Zosyn 3.375 GM In 100 / 100 100 / 100 Dextrose 5% (Minibag+) 100 ML 100 ML @ 25 mls/hr IVPB Q6H [facility] Rx#: [id number] Oral 320 / 320 840 / 840 Output: Urine 550 / 550 200 / 200 950 / 950 Stool 475 / 475 350 / 350 Other: Meal Dinner Lunch Percent of Meal Consumed 90% 90% Stool Consistency liquid liquid Stool Color Brown Brown Dark Red Blood Dark Red Blood Weight 90.45 kg Patient Weight 04/09/17 23:59 Weight 90.45 kg - VTE Documentation of Mechanical Device: Intermittent pneumatic compression device Consult Discharge Plan - Plan Referrals: Hilary Henriquez DO [Partnered Physician] - 04/17/17 9:00 am
[2017-04-09] MEDS ORDERED: Simethicone 80 MG TAB.CHEW PO PRN (15:13)
[2017-04-09] MEDS: Psyllium 1 PACKET POWD.PACK PO SCH ×2 (16:10→21:37)
[2017-04-10] MEDS: *HR* Heparin 5,000 UNIT/ML VIAL SQ SCH (06:06)
[2017-04-10 06:41] VITALS: BP 169/82
[2017-04-10 06:49] LABS: BUN/Creatinine Ratio 11 (6-26); Blood Urea Nitrogen 8 mg/dL (7-20); Calcium 8.8 mg/dL (8.6-10.8); Carbon Dioxide 22 mEq/L (19-29); Chloride 108 mEq/L (98-109); Glucose 85 mg/dL (70-99); Magnesium 1.7 mg/dL (1.6-2.6); Osmolality,Calculated 286 (280-300); Phosphorous 2.4 mg/dL (2.3-4.7); Potassium 3.7 mEq/L (3.5-4.5); Sodium 139 mEq/L (136-145); eGFR For African Americans > 60 (> 60); eGFR For Non-African Americans > 60 (> 60)
[2017-04-10 08:02] LABS: Basophils % 0.5 %; Eosinophils # 0.3 K/mcL (0.0-0.6); Hematocrit 30.8 % (35.3-44.9); Hemoglobin 8.6 g/dL (11.5-15.4); Immature Granulocytes % 0.5 % (0-4); Lymphocytes # 1.5 K/mcL (0.6-4.6); Lymphocytes % 17.9 %; Mean Corpuscular HGB Conc 27.9 g/dL (31.6-35.5); Mean Corpuscular Volume 71.5 fL (83.0-100.0); Mean Platelet Volume 10.6 fL (9.4-12.4); Monocytes # 0.8 K/mcL (0.0-1.3); Monocytes % 9.9 %; Neutrophils # 5.4 K/mcL (1.6-8.9); Platelet Count 253 K/mcL (140-400); Red Blood Count 4.31 M/mcL (3.82-4.97); Red Cell Distribution Width 25.9 % (11.5-14.5); Segmented Neutrophils % 67.2 %
[2017-04-10 08:03] LABS: Anisocytosis 3+ (Not Present); Hypochromasia Present (Not Present); Microcytosis Present (Not Present)
[2017-04-10 08:04] LABS: Platelet Estimate Normal (Normal)
[2017-04-10] MEDS: Lisinopril 20 MG TABLET PO SCH (10:02)
[2017-04-10] MEDS: Psyllium 1 PACKET POWD.PACK PO SCH (10:02)
--- NOTE | 2017-04-10 12:02 | Discharge Summary ---
Date of Encounter: 04/10/17 Time of Encounter: 11:57 - Discharge Diagnosis (1) Colon obstruction Priority: Primary Status: Resolved (2) History of colon cancer, stage III Priority: Secondary Status: Acute (3) History of malignant carcinoid tumor of small intestine Priority: Secondary Status: Acute (4) HTN (hypertension) Priority: Secondary Status: Chronic Qualifiers: Hypertension type: essential hypertension Qualified Code(s): I10 - Essential (primary) hypertension - Discharge Medications Home Medications: Aspirin [Lo-Dose Aspirin EC] 81 mg PO DAILY 04/05/17 [History] Lisinopril [Zestril] 20 mg PO DAILY 04/05/17 [History] Allergies/Adverse Reactions: Allergies No Known Allergies Allergy (Verified 04/05/17 12:51) General Surgery Exam Initial Vital Signs Temp Pulse Resp BP Pulse Ox 98.1 F 87 20 208/76 99 04/05/17 12:53 04/05/17 12:53 04/05/17 12:53 04/05/17 12:53 04/05/17 12:53 - General physical appearance well developed, well nourished, no distress - Eyes normal ocular movement - ENT normal mucosa, atraumatic, normocephalic - Neck trachea midline - Cardiovascular Cardiovascular exam: Present: RRR, 15, 16 - Abdomen Abdomen general surgery: Present: bowel sounds present, soft, non tender, wound (Colostomy is pink and moist with liquid, brown stool.) - Incision Incision: Present: clean and dry, intact - Integumentary Integumentary general surgery: Present: warm and dry - Neurologic Present: CN 2-12 grossly intact - Psychiatric Psychiatric general surgery: Present: A&Ox3 Date of admission: 04/06/17 11:42 Primary care physician: PCP NO Consults: 04/07/17 16:40 Consult to [facility]iner [CONS] Routine Reason for SW Consult: dc home with new colostomy 04/08/17 14:18 Consult to Wound Care [CONS] Routine Reason for Consult: new colostomy Time Notified: 14:19 Call Completed: No Discharging clinician: Cassie DiehlCounts Include [facility]) Anticipated date of discharge: 04/10/17 - Patient Status Disposition: Home Health Service Condition: Good Functional capacity at discharge: independent ambulation Overall status at discharge: patient is progressing back to baseline - Discharge Instructions Follow Up With: Hilary Henriquez DO [Partnered Physician] - 04/17/17 9:00 am Forms: ED Satisfaction Letter Additional Instructions: #1 may shower, no tub bath or swimming for 2 weeks #2 wash incisions with soap and water and pat dry daily #3 no lifting, pushing, pulling more than 15 pounds for the next 6 weeks #4 no driving until off narcotics for 24 hours and able to safely react in the car #5 may climb stairs Colostomy care- change appliance every 5-7 days and as needed if leaking. Empty bag 3-4 times per day and as needed and full. Empty bag when 1/3 full. - Diet and Activity Activity: other (See additional instructions above) Diet: advance to your usual diet - Hospital Course Hospital course: Ms. Benito is a 66 year old female presented to the hospital with complaints of abdominal pain with nausea/vomiting and was found to have a colonic obstruction. She is postoperative day #3 from a Exploratory laparotomy, lysis of adhesions, colectomy (anatomotic stricture/tumor), appendectomy with Dr. Barry. Her diet has been advanced with return of bowel function she is currently tolerating a soft diet without nausea or vomiting. She is having liquid brown stool from her colostomy. She denies any postoperative abdominal pain. Her vital signs are stable and she is afebrile. She is voiding and ambulating without difficulty. Wound care nurse was consulted for ostomy teaching prior to discharge. Pathology is pending. We will begin discharge planning to home with home health care and plan for outpatient follow-up in the next 10-14 days. - Time Spent with Patient Total time spent providing and/or coordinating discharge services: Less than 30 minutes Labs on day of discharge: Labs from last 24 hours 04/10/17 04/10/17 05:32 05:32 WBC 8.1 RBC 4.31 Hgb 8.6 L Hct 30.8 L MCV 71.5 L MCH 20.0 L MCHC 27.9 L RDW 25.9 H Plt Count 253 MPV 10.6 Immature Gran % 0.5 Seg Neutrophils % 67.2 Lymphocytes % 17.9 Monocytes % 9.9 Eosinophils % 4.0 Basophils % 0.5 Neutrophils # 5.4 Lymphocytes # 1.5 Monocytes # 0.8 Eosinophils # 0.3 Basophils # 0.0 Platelet Estimate Normal Hypochromasia Present A Anisocytosis 3+ A Microcytosis Present A Sodium 139 Potassium 3.7 Chloride 108 Carbon Dioxide 22 BUN 8 Creatinine 0.70 Est GFR ( Amer) > 60 Est GFR (Non-Af Amer) > 60 BUN/Creatinine Ratio 11 Glucose 85 Calculated Osmolality 286 Calcium 8.8 Phosphorus 2.4 Magnesium 1.7 - Attending Attestation I examined this patient and my medical decision-making was reviewed with the [employer]/PA/Advanced Practice Nurse/Resident Physician. I agree with the documented findings, disposition and treatment plan as described except to the extent set forth below.
--- NOTE | 2017-04-10 12:16 | Physician Discharge Referral ---
Home Health/Hosp Referral Info Transfer to: Home Health Attending Provider: Dr. Cassie Barry Provider in Charge Post Discharge: Other (PCP and Dr. Barry) - Diagnosis (1) Colon obstruction Priority: Primary Status: Resolved (2) History of colon cancer, stage III Priority: Secondary Status: Acute (3) History of malignant carcinoid tumor of small intestine Priority: Secondary Status: Acute (4) HTN (hypertension) Priority: Secondary Status: Chronic - Respiratory Orders None - Dressing/Wound Care Site: #1 Midline Incision #2 Colostomy Type of Dressing/Treatments w/Frequency: #1 wash incisions with soap and water and pat dry daily #2 Colostomy care- change appliance every 5-7 days and as needed if leaking. Empty bag 3-4 times per day and as needed and full. Empty bag when 1/3 full. - Diet/Nutrition Diet/Nutrition Orders: Regular - Activity Activity Orders: Up ad deborah, Ambulate Activity: List: #1 may shower, no tub bath or swimming for 2 weeks #2 no lifting, pushing, pulling more than 15 pounds for the next 6 weeks #3 no driving until off narcotics for 24 hours and able to safely react in the car #4 may climb stairs - Services Needed Following services are medically necessary services: Nursing - Transfer Medications Home Medications: Aspirin [Lo-Dose Aspirin EC] 81 mg PO DAILY 04/05/17 [History] Lisinopril [Zestril] 20 mg PO DAILY 04/05/17 [History] Allergies/Adverse Reactions: Allergies No Known Allergies Allergy (Verified 04/05/17 12:51) Certification: Further, I certify that my clinical findings support that this patient is homebound (i.e. absences from home require considerable and taxing effort and are for medical reasons or christianity services or infrequently or short duration when for other reasons) because: Homebound Reason: Patient requires assistance of a person or device to safely leave home, Leaving home requires considerable and taxing effort due to condition Attestation: My signature below is to certify that this patient is under my care and that I, or nurse practitioner, or a physician's child care assistant working with me, has a face-to -face encounter with this patient.
[2017-04-14 13:32] LABS: Urine Collection Duration 24 hr; Urine Collection Volume 1414 mL; Urine Creatinine mg/d 1131 mg/d (500-1400)
== END 2017-04-10 15:06 | disposition home health service (06) | DRG 331 ==
LOC: EMEROO 12:43 → 3ANU 12:43
PROVIDERS: ADMIT Surgery; ATTEND Surgery

== ENCOUNTER 2017-09-15 03:48 | Inpatient (IN) ==
[2017-09-15 04:53] LABS: Basophils # 0.1 K/mcL (0.0-0.2); Basophils % 0.2 %; Hematocrit 40.6 % (35.3-44.9); Hemoglobin 14.2 g/dL (11.5-15.4); Immature Granulocytes % 1.2 % (0-4); Immature Platelets 6.8 % (1.1-6.1); Lymphocytes # 1.3 K/mcL (0.6-4.6); Lymphocytes % 4.5 %; Mean Corpuscular Hemoglobin 32.6 pg (28.0-33.3); Mean Corpuscular Volume 93.1 fL (83.0-100.0); Mean Platelet Volume 11.8 fL (9.4-12.4); Monocytes # 2.2 K/mcL (0.0-1.3); Monocytes % 7.5 %; Neutrophils # 25.3 K/mcL (1.6-8.9); Platelet Count 404 K/mcL (140-400); Red Blood Count 4.36 M/mcL (3.82-4.97); Red Cell Distribution Width 15.5 % (11.5-14.5); Segmented Neutrophils % 86.6 %
[2017-09-15 04:55] LABS: Potassium 3.6 mEq/L (3.5-4.5)
[2017-09-15 05:12] LABS: Platelet Estimate Increased (Normal)
[2017-09-15] MEDS ORDERED: 0.9 % Sodium Chloride 1,000 ML IVC ONE ×2 (07:16→11:56)
--- NOTE | 2017-09-15 07:21 | Emergency Department Note ---
Disposition Clinical Impression: SARA (acute kidney injury), Hyponatremia, Metastatic cancer UTI (urinary tract infection) Qualifiers: Indwelling urinary catheter type: unspecified Encounter type: initial encounter Leukocytosis Qualifiers: Leukocytosis type: unspecified Qualified Code(s): D72.829 - Elevated white blood cell count, unspecified Disposition: Admitted As Inpatient Condition: Fair Time of Disposition: 11:54 General Adult HPI - General Chief complaint: ED General Medical Stated complaint: weak and unable to eat Time Seen by Provider: 09/15/17 06:49 Source: patient Limitations: no limitations Nursing Notes Reviewed: Yes Vital Signs Reviewed: Yes - History of Present Illness HPI Narrative: Ms. Benito, a 67yo female, presents from home for evaluation of weakness, decreased appetite, intermittent nausea. Onset one week ago. Patient has been sustaining himself on popsicles, fruit, ice cream. She is a poor historian and is unable to provide additional history of present illness. PMH: Patient denies past medical history. Medications: Patient denies any daily medications. PSH: Patient states she has a colectomy secondary to a bowel resection; reasons for bowel resection unknown to her. Cholecystectomy. ROS: Positive: As above negative: Fever, chills, vomiting, abdominal pains, dysuria, changes in colostomy output, confusion, vertigo, chest pains, palpitations, dyspnea, cough Pain Scale: 0 - Related Data Home Medications Medication Instructions Recorded Confirmed No Known Home Drugs 09/15/17 09/15/17 Allergies Allergy/AdvReac Type Severity Reaction Status Date / Time No Known Allergies Allergy Verified 09/11/17 10:54 All systems ED: reviewed and negative except as stated. Review of Systems: As Per HPI Past Medical History - Past Medical History Medical history: Reports: cancer, hypertension Surgical history: Reports: cholecystectomy Psychiatric history: Reports: no psych history - Social History Smoking Status: Never smoker Smokeless Tobacco Status: No Alcohol use: Reports: none Drug use: Reports: none Physical Exam Vital Signs Reviewed General: Patient is alert, oriented, and in no acute distress. HEENT: No facial asymmetry. Head is normocephalic and atraumatic. PERRLA, EOMI. oral mucosa dry. Trachea midline. Cardiovascular: Heart regular rate and rhythm without clicks, rubs, gallops, or murmurs. No JVD. PMI nondisplaced. Lateral radial pulses 2/4 equal. No pedal edema. Respiratory: Symmetric chest rise with poor respiratory effort. Bilateral breath sounds are clear without wheezing, crackles, or rhonchi. Abdomen: Obese. Bowel sounds present normoactive x-4 quadrants. Abdomen is soft, nondistended, and nontender. Musculoskeletal: Neuro: GCS 15. Alert and oriented 4. Psych: Patient's affect is appropriate for situation. - General Limitations: no limitations General appearance: alert Course Course Narrative: Patient received on sign out from the night team, Dr. Carvajal and Dr. Arcos. Patient presents with vague complaints. She is a poor historian. Chart check shows the patient sees Dr. Peña in the oncology clinic. PMH: Metastatic carcinoid, recurrent colon cancer, hypothyroidism Indications: Folic acid, levothyroxine Patient's lab work shows acute kidney injury, hyponatremia, leukocytosis at 29.2. Urinalysis, though contaminated, concerning for urinary tract infection. Will appear to cover with Rocephin. Given her history of abdominal surgeries and anorexia, will CT abdomen and pelvis without contrast. Avoiding IV contrast secondary to acute kidney injury. CT is concerning for worsening metastatic disease. No acute findings. Discussed the patient with Dr. Barnett, the admitting hospitalist, who agrees to accept the patient for continued evaluation and management. Chest X-Ray 09/15/17 04:00 IMPRESSION: Negative portable chest. D/ / Philippe Ford MD / Philippe Ford MD Interpreting Provider: Philippe Ford MD Abdomen/Pelvis CT 09/15/17 07:15 IMPRESSION: No acute intra-abdominal abnormality. Findings suspicious for worsening metastatic disease with increase in size of the pericardiophrenic lymph node and increase in size in number of hepatic capsular implants compared to CT from 04/05/2017. Increased size and number of multiple mesenteric nodes which could be reactive or could represent peritoneal carcinomatosis. Unchanged size of the soft tissues mass along the left perineum which is nonspecific. D/ / Jeffrey Link MD / Jeffrey Link MD Interpreting Provider: Jeffrey Link MD Vital Signs Temperature 97.3 F L 09/15/17 03:55 Pulse Rate 79 09/15/17 03:55 Respiratory Rate 20 09/15/17 03:55 Blood Pressure 97/64 09/15/17 03:55 O2 Sat by Pulse Oximetry 97 09/15/17 03:55 Temperature 97.3 F L 09/15/17 03:55 Pulse Rate 91 09/15/17 09:11 Respiratory Rate 12 09/15/17 11:22 Blood Pressure 122/66 09/15/17 11:22 O2 Sat by Pulse Oximetry 99 09/15/17 09:11 Oxygen Delivery Oxygen Delivery Room Air Medical Decision Making - Lab Data Result diagrams: 09/15/17 04:45 09/15/17 04:29 Lab Results 09/15/17 09/15/17 09/15/17 Range/Units 04:29 04:29 04:37 WBC (4.3-11.1) K/mcL RBC (3.82-4.97) M/mcL Hgb (11.5-15.4) g/dL Hct (35.3-44.9) % MCV (83.0-100.0) fL MCH (28.0-33.3) pg MCHC (31.6-35.5) g/dL RDW (11.5-14.5) % Plt Count (140-400) K/mcL MPV (9.4-12.4) fL Immature Gran % (0-4) % Seg Neutrophils % % Lymphocytes % % Monocytes % % Eosinophils % % Basophils % % Neutrophils # (1.6-8.9) K/mcL Lymphocytes # (0.6-4.6) K/mcL Monocytes # (0.0-1.3) K/mcL Eosinophils # (0.0-0.6) K/mcL Basophils # (0.0-0.2) K/mcL Platelet Estimate (Normal) Immature Plt Fraction (1.1-6.1) % Sodium 125 L (136-145) mEq/L Potassium 3.6 (3.5-4.5) mEq/L Chloride 94 L (98-109) mEq/L Carbon Dioxide 16 L (19-29) mEq/L BUN 148 H (7-20) mg/dL Creatinine 4.06 H (0.57-1.11) mg/dL Est GFR ( Amer) 13 L (> 60) Est GFR (Non-Af Amer) 11 L (> 60) BUN/Creatinine Ratio 36 H (6-26) Glucose 166 H (70-99) mg/dL Calculated Osmolality 312 H (280-300) Lactic Acid (0.5-2.2) mmol/L Calcium 10.0 (8.6-10.8) mg/dL Troponin I 0.01 (0-0.03) ng/mL TSH 2.142 (0.350-4.840) mcIU/mL Urine Color (Yellow) Urine Clarity (Clear) Urine pH (5.0-8.0) pH Units Ur Specific [place] (1.010-1.025) Urine Protein (Neg-Trace) mg/dL Urine Glucose (UA) (Normal) mg/dL Urine Ketones (Negative) mg/dL Urine Blood (Negative) Urine Nitrite (Negative) Urine Bilirubin (Negative) Urine Urobilinogen (Normal) mg/dL Ur Leukocyte Esterase (Negative) Urine Microscopic RBC (0-3) per hpf Urine Microscopic WBC (0-3) per hpf Ur Squamous Epith Cells (None-Few) per lpf Urine Bacteria (None-Few) per hpf Ur Culture Indicated? (NO) Stl C. diff Tox B Gene (Negative) Specimen Rejected Clotted 09/15/17 09/15/17 09/15/17 Range/Units 04:45 07:22 07:46 WBC 29.2 H (4.3-11.1) K/mcL RBC 4.36 (3.82-4.97) M/mcL Hgb 14.2 (11.5-15.4) g/dL Hct 40.6 (35.3-44.9) % MCV 93.1 (83.0-100.0) fL MCH 32.6 (28.0-33.3) pg MCHC 35.0 (31.6-35.5) g/dL RDW 15.5 H (11.5-14.5) % Plt Count 404 H (140-400) K/mcL MPV 11.8 (9.4-12.4) fL Immature Gran % 1.2 (0-4) % Seg Neutrophils % 86.6 % Lymphocytes % 4.5 % Monocytes % 7.5 % Eosinophils % 0.0 % Basophils % 0.2 % Neutrophils # 25.3 H (1.6-8.9) K/mcL Lymphocytes # 1.3 (0.6-4.6) K/mcL Monocytes # 2.2 H (0.0-1.3) K/mcL Eosinophils # 0.0 (0.0-0.6) K/mcL Basophils # 0.1 (0.0-0.2) K/mcL Platelet Estimate Increased H (Normal) Immature Plt Fraction 6.8 H (1.1-6.1) % Sodium (136-145) mEq/L Potassium (3.5-4.5) mEq/L Chloride (98-109) mEq/L Carbon Dioxide (19-29) mEq/L BUN (7-20) mg/dL Creatinine (0.57-1.11) mg/dL Est GFR ( Amer) (> 60) Est GFR (Non-Af Amer) (> 60) BUN/Creatinine Ratio (6-26) Glucose (70-99) mg/dL Calculated Osmolality (280-300) Lactic Acid 1.2 (0.5-2.2) mmol/L Calcium (8.6-10.8) mg/dL Troponin I (0-0.03) ng/mL TSH (0.350-4.840) mcIU/mL Urine Color Dark Yellow (Yellow) Urine Clarity Cloudy A (Clear) Urine pH 5.5 (5.0-8.0) pH Units Ur Specific [place] 1.022 (1.010-1.025) Urine Protein 30 H (Neg-Trace) mg/dL Urine Glucose (UA) Normal (Normal) mg/dL Urine Ketones Negative (Negative) mg/dL Urine Blood Large H (Negative) Urine Nitrite Negative (Negative) Urine Bilirubin Small H (Negative) Urine Urobilinogen Normal (Normal) mg/dL Ur Leukocyte Esterase Small H (Negative) Urine Microscopic RBC 50-100 H (0-3) per hpf Urine Microscopic WBC 15-30 H (0-3) per hpf Ur Squamous Epith Cells Many H (None-Few) per lpf Urine Bacteria Many H (None-Few) per hpf Ur Culture Indicated? YES A (NO) Stl C. diff Tox B Gene (Negative) Specimen Rejected 09/15/17 Range/Units 09:30 WBC (4.3-11.1) K/mcL RBC (3.82-4.97) M/mcL Hgb (11.5-15.4) g/dL Hct (35.3-44.9) % MCV (83.0-100.0) fL MCH (28.0-33.3) pg MCHC (31.6-35.5) g/dL RDW (11.5-14.5) % Plt Count (140-400) K/mcL MPV (9.4-12.4) fL Immature Gran % (0-4) % Seg Neutrophils % % Lymphocytes % % Monocytes % % Eosinophils % % Basophils % % Neutrophils # (1.6-8.9) K/mcL Lymphocytes # (0.6-4.6) K/mcL Monocytes # (0.0-1.3) K/mcL Eosinophils # (0.0-0.6) K/mcL Basophils # (0.0-0.2) K/mcL Platelet Estimate (Normal) Immature Plt Fraction (1.1-6.1) % Sodium (136-145) mEq/L Potassium (3.5-4.5) mEq/L Chloride (98-109) mEq/L Carbon Dioxide (19-29) mEq/L BUN (7-20) mg/dL Creatinine (0.57-1.11) mg/dL Est GFR ( Amer) (> 60) Est GFR (Non-Af Amer) (> 60) BUN/Creatinine Ratio (6-26) Glucose (70-99) mg/dL Calculated Osmolality (280-300) Lactic Acid (0.5-2.2) mmol/L Calcium (8.6-10.8) mg/dL Troponin I (0-0.03) ng/mL TSH (0.350-4.840) mcIU/mL Urine Color (Yellow) Urine Clarity (Clear) Urine pH (5.0-8.0) pH Units Ur Specific [place] (1.010-1.025) Urine Protein (Neg-Trace) mg/dL Urine Glucose (UA) (Normal) mg/dL Urine Ketones (Negative) mg/dL Urine Blood (Negative) Urine Nitrite (Negative) Urine Bilirubin (Negative) Urine Urobilinogen (Normal) mg/dL Ur Leukocyte Esterase (Negative) Urine Microscopic RBC (0-3) per hpf Urine Microscopic WBC (0-3) per hpf Ur Squamous Epith Cells (None-Few) per lpf Urine Bacteria (None-Few) per hpf Ur Culture Indicated? (NO) Stl C. diff Tox B Gene Negative (Negative) Specimen Rejected
[2017-09-15 07:35] LABS: Bilirubin,Urine Small (Negative); Blood,Urine Large (Negative); Clarity,Urine Cloudy (Clear); Color,Urine Dark Yellow (Yellow); Glucose,Urine (UA) Normal (Normal); Ketones,Urine Negative (Negative); Leukocyte Esterase,Urine Small (Negative); Nitrite,Urine Negative (Negative); PH,Urine 5.5 pH Units (5.0-8.0); Protein,Urine 30 mg/dL (Neg-Trace); Specific Gravity,Urine 1.022 (1.010-1.025); Urobilinogen,Urine Normal (Normal)
[2017-09-15 07:37] LABS: Bacteria,Urine Many per hpf (None-Few); RBC,Urine 50-100 per hpf (0-3); Squamous Epithelial Cell,Urine Many per lpf (None-Few); WBC,Urine 15-30 per hpf (0-3)
[2017-09-15 07:52] LABS: Thyroid Stimulating Hormone 2.142 mcIU/mL (0.350-4.840)
--- NOTE | 2017-09-15 09:34 | Emergency Department Note ---
START Narrative - START START: I examined this patient and my medical decision-making was reviewed with the Resident Physician. I agree with the documented findings, disposition and treatment plan as described except to the extent set forth below. 67 year old female with colostomy secondary to colon resection secondary to colon cancer and not currently on chemo/radiation therpay rpresnts to the ED wit complaints of weakness, fatigue, nausea, and vomitting withou diffuse abdominal pain. Patinet has had increased watery stool production. She follows daphnie Pineda at [facility]. Patient has an elevated crn, hyponatremic, and WBC of 29. Concerned about infection vs. leukemia. we will rehydate carefully and ABCT pending. Admito medicine.
[2017-09-15] MEDS ORDERED: cefTRIAXone 1,000 MG in Water for inj. (sterile) 10 ML IVP ONE (11:11)
[2017-09-15] MEDS ORDERED: Ondansetron 4 MG/2 ML VIAL IVP PRN (11:20)
[2017-09-15] MEDS ORDERED: Naloxone 0.4 MG/ML INJ IVP PRN (11:20)
[2017-09-15] MEDS ORDERED: Acetaminophen 325 MG TABLET PO PRN (11:20)
--- NOTE | 2017-09-15 11:33 | Internal Med History&Physical ---
Date of Encounter: 09/15/17 Time of Encounter: 11:31 Assessment and Plan (1) UTI (urinary tract infection) Current visit: Yes Status: Acute Complaints of dysuria, generalized weakness and malaise and fatigue. Leukocytosis 29.2, urinalysis cloudy with large blood and small leukoesterase. Upon presentation to the emergency department the patient was hypotensive, tachypneic, had leukocytosis and acute renal failure. The patient has sepsis secondary to UTI Urine sent for culture-continue to follow Ceftriaxone 1 g daily Given additional 1 L fluid bolus for total of 2 L 0.9 normal saline at 125 mL per hour thereafter Obtain blood cultures-continue to follow Continuous telemetry, continuous O2 monitoring Hold nephrotoxic agents due to SARA, CBC, CMP with mag and phosphorus in the morning Qualifiers: Indwelling urinary catheter type: unspecified Encounter type: initial encounter Qualified Code(s): T83.511A - Infection and inflammatory reaction due to indwelling urethral catheter, initial encounter; N39.0 - Urinary tract infection, site not specified; N39.0 - Urinary tract infection, site not specified (2) Sepsis Current visit: Yes Status: Acute On presentation to emergency department she was hypertensive, tachypneic have leukocytosis and acute renal failure. Urinalysis cloudy with large blood and small leukocyte esterase. Has sepsis secondary to UTI infection. Continue antiemetic therapy as discussed above Send peripheral blood cultures times x2 Continue aggressive rehydration Hold nephrotoxic agents due to SARA with sepsis and dehydration Urine sent for culture Continuous telemetry CBC BMP in the morning Qualifiers: Sepsis type: sepsis due to unspecified organism Qualified Code(s): A41.9 - Sepsis, unspecified organism (3) SARA (acute kidney injury) Current visit: Yes Status: Acute Secondary to dehydration, GI and sepsis. Continue to monitor renal function. Aggressive rehydration as stated above. (4) Weakness generalized Current visit: Yes Status: Acute Has history of stage III colon adenocarcinoma. Poor appetite for approximately one week. Has sepsis secondary to UTI. Should improve with aggressive rehydration and antibiotic therapy. (5) Leukocytosis Current visit: Yes Status: Acute See plan above Qualifiers: Leukocytosis type: monocytosis Qualified Code(s): D72.821 - Monocytosis ( symptomatic) (6) Nausea Current visit: Yes Status: Acute Remains nauseous but has not vomited. Continues to have a decrease in appetite due to nausea. Continue antiemetics Consult dietary for oral supplementation Start clears diet and advance as tolerated (7) Hyponatremia Current visit: Yes Status: Acute Patient appears to be severely dehydrated secondary to UTI and sepsis. Continue to monitor electrolytes. See plan above (8) Metastatic cancer Current visit: Yes Status: Acute Metastatic stage III colon adenocarcinoma. Being followed by routine oncology. Consult [place] [facility] for further recommendations and transitions of hospital care (9) DVT prophylaxis Current visit: Yes Status: Acute Heparin 5000 units subcutaneous twice a day Internal Medicine - H&P: HPI Chief complaint: Weakness, fatigue, decreased appetite and intermittent nausea Admitted From: Home Plans for Post Hospital Care: Home History of present illness: Ms. Benito is a 67 year old female with a past medical history of stage III colon adenocarcinoma, HTN, HLD and osteoporosis. She is being followed and treated by [facility] for her cancer. She presents to [facility] today with a one-week history of increasing weakness, intermittent nausea, and a decrease in appetite. She reports she is only able to eat Jell-O and popsicles. She denies any fever, chills, night sweats, chest pain, shortness of breath, abdominal pain. She admits to dysuria, increase in urinary frequency and urgency, but she is only able to produce a small volume of urine. Workup in ED revealed leukocytosis 29.2 and acute kidney injury with serum creatinine of 4.06. Past Med Surg Social Fam HX - Past Medical History Medical history: cancer, hypertension Psychiatric history: no psych history - Past Surgical History Surgical History: cholecystectomy - Social History Smoking Status: Never smoker Smokeless Tobacco Status: No Alcohol use: none Drug use: none - Family History Mother Living Status: Hx Family Cancer: Yes (bone) Father Hx Family Cancer: Yes (Prostate) Internal Medicine - H&P: Meds No Known Home Drugs 09/15/17 [History] 3 Allergy/AdvReac Type Severity Reaction Status Date / Time No Known Allergies Allergy Verified 09/11/17 10:54 All Systems PM: A 10-system review of systems was performed and is negative for pertinent findings except as documented above in the HPI. - Constitutional Constitutional: fatigue, malaise, weakness, weight loss, no chills, no fever(s) , no weight gain - Cardiovascular Cardiovascular ROS IM: no chest pain, no diaphoresis, no dyspnea, no lightheadedness, no palpitations, no syncope - Respiratory Respiratory: no cough, no dyspnea, no wheezing, no excessive phlegm production - Gastrointestinal Gastrointestinal: early satiety, nausea, other (Decrease in appetite), no abdominal pain, no constipation, no vomiting - Genitourinary Genitourinary: dysuria, urinary frequency (Decrease in urinary output), urinary urgency, no flank pain, no urinary hesitancy, no urinary incontinence - Musculoskeletal Musculoskeletal ROS IM: muscle weakness - Integumentary Integumentary IM: no rash, no unusual bruising - Neurological Neurological ROS: weakness, no frequent falls, no numbness, no tingling - Constitutional Vitals: Temp Pulse Resp BP Pulse Ox 97.3 F L 91 12 122/66 99 09/15/17 03:55 09/15/17 09:11 09/15/17 11:22 09/15/17 11:22 09/15/17 09:11 General appearance: Present: A&O X 3, obese, answers questions appropriately Exam: Unfortunate, ill appearing 67-year-old female. Appears fatigued with malaise, also appears acutely dehydrated. - Head Head exam: Present: atraumatic, normocephalic - Eye Eye exam: Present: PERRL, conjuntiva pink, sclera anicteric Pupils: Present: PERRL - Neck Neck exam general surgery: Present: supple, trachea midline. Absent: lymphadenopathy - Respiratory Respiratory exam: Present: CTAB. Absent: accessory muscle use, rales, rhonchi, wheezes - Cardiovascular Cardiovascular exam: Present: RRR, +S1, +S2. Absent: diastolic murmur, gallop, rubs, systolic murmur - GI/Abdominal GI/Abdominal exam: Present: soft, no peritoneal signs. Absent: tenderness Additional comments: Colostomy in place with watery liquid brown stool - Extremities Exam Extremities exam: Present: warm, radial pulses palpable and symmetrical. Absent : calf tenderness, cyanotic, pedal edema - Neurological Exam Neurological exam: Present: alert, oriented X3. Absent: facial droop, speech deficit - Skin Skin exam: Present: dry, intact - Expanded Skin Exam Full body front and back image: 1 - Soles of feet are cracking, dry and scaly Internal Med - H&P Results - Labs CBC & Chem 7: 09/15/17 04:45 09/15/17 04:29 - EKG Data -: EKG Interpreted by Myself EKG shows normal: sinus rhythm Rate: normal - EKG Data Prior EKG available for review: yes When compared to previous EKG: there is no significant change Interpretation IM: normal EKG - Diagnostic Studies Chest x-ray Status: image reviewed by me Additional comments: No acute pulmonary process
[2017-09-15] MEDS: 0.9 % Sodium Chloride 1,000 ML IVC SCH ×3 (11:46→21:15)
--- NOTE | 2017-09-15 11:47 | Event Note ---
Date of Encounter: 09/15/17 Time of Encounter: 11:45 Patient seen and examined with nurse practitioner. Patient with prior history of colon adenocarcinoma as well as neuroendocrine tumor of the small bowel presents with a week history of decreased PO intake weakness lethargy functional decline and decreased urine output. Will aggressively hydrate the patient follow urine output. Possible UTI, will keep the patient on ceftriaxone. Oncology consultation.
[2017-09-15] MEDS: *HR* Heparin 5,000 UNIT/ML VIAL SQ SCH (17:35)
[2017-09-16 03:12] LABS: Basophils % 0.2 %; Eosinophils % 0.2 %; Hematocrit 38.6 % (35.3-44.9); Hemoglobin 12.9 g/dL (11.5-15.4); Immature Granulocytes % 0.8 % (0-4); Lymphocytes # 0.8 K/mcL (0.6-4.6); Lymphocytes % 4.3 %; Mean Corpuscular HGB Conc 33.4 g/dL (31.6-35.5); Mean Corpuscular Hemoglobin 32.5 pg (28.0-33.3); Mean Corpuscular Volume 97.2 fL (83.0-100.0); Mean Platelet Volume 11.5 fL (9.4-12.4); Monocytes # 1.5 K/mcL (0.0-1.3); Neutrophils # 16.5 K/mcL (1.6-8.9); Platelet Count 239 K/mcL (140-400); Red Blood Count 3.97 M/mcL (3.82-4.97); Red Cell Distribution Width 15.4 % (11.5-14.5); Segmented Neutrophils % 86.5 %
[2017-09-16 03:26] LABS: Albumin 2.3 g/dL (3.5-5.0); Albumin/Globulin Ratio 0.5 (1.1-2.2); Bilirubin,Total 0.7 mg/dL (0.2-1.2); Calcium 8.8 mg/dL (8.6-10.8); Globulin 4.6 g/dL (2.4-3.5); Magnesium 2.4 mg/dL (1.6-2.6); Phosphorous 4.2 mg/dL (2.3-4.7); Potassium 3.4 mEq/L (3.5-4.5); Total Protein 6.9 g/dL (6.0-8.3)
[2017-09-16] MEDS: *HR* Heparin 5,000 UNIT/ML VIAL SQ SCH ×2 (05:00→17:35)
[2017-09-16] MEDS: cefTRIAXone 1,000 MG in Water for inj. (sterile) 10 ML IVP SCH (07:29)
--- NOTE | 2017-09-16 09:14 | Internal Med Progress Note ---
<Gabriel Lucas - Last Filed: 09/16/17 09:12> Date of Encounter: 09/16/17 Time of Encounter: 09:12 - Assessment and plan (1) Sepsis Current Visit: Yes Status: Resolved Assessment and plan: Resolved at this time. Secondary to UTI. Patient been afebrile, non tachycardic. Blood pressure stable. Continue maintenance IV fluids, antibiotics with Rocephin Qualifiers: Sepsis type: sepsis due to unspecified organism Qualified Code(s): A41.9 - Sepsis, unspecified organism (2) UTI (urinary tract infection) Current Visit: Yes Status: Acute Assessment and plan: Secondary to Escherichia coli. Antibiotic day 2 with rocephin. Patient seems to be recovering nicely. Qualifiers: Indwelling urinary catheter type: unspecified Encounter type: initial encounter Qualified Code(s): T83.511A - Infection and inflammatory reaction due to indwelling urethral catheter, initial encounter; N39.0 - Urinary tract infection, site not specified; N39.0 - Urinary tract infection, site not specified (3) SARA (acute kidney injury) Current Visit: Yes Status: Acute Assessment and plan: Creatinine initially 4.06 on presentation, down to 2.66 today. Patient does not have C daily at baseline Likely related to dehydration. Patient has good urine output. Continue IV hydration and encourage by mouth intake. (4) Hyponatremia Current Visit: Yes Status: Acute Assessment and plan: Acute. Asymptomatic. Likely hypovolemic in the setting of dehydration. Sodium has improved to 134 today. Continue monitor. (5) History of colon cancer, stage III Current Visit: No Status: Acute Assessment and plan: Patient has declined chemotherapy in the past. Patient's acute presentation is likely unrelated to her cancer history. Encourage outpatient follow-up. (6) Hypothyroid Current Visit: Yes Status: Acute Assessment and plan: Continue Synthroid. Qualifiers: Hypothyroidism type: unspecified Qualified Code(s): E03.9 - Hypothyroidism , unspecified - Subjective Interval history: Patient seen and examined at bedside. Patient states that she feels pretty good today. She feels like her generalized weakness is improved. Denies abdominal pain, nausea, vomiting, dysuria. She reports good urine output. - Constitutional Vitals: Temp Pulse Resp BP Pulse Ox 97.4 F L 72 16 106/63 100 09/16/17 07:47 09/16/17 07:47 09/16/17 07:47 09/16/17 07:47 09/16/17 07:47 General appearance: Present: A&O X 3, obese, answers questions appropriately - Respiratory Respiratory exam: Present: CTAB. Absent: rales, rhonchi, wheezes - Cardiovascular Cardiovascular exam: Present: RRR. Absent: gallop, rubs, systolic murmur - GI/Abdominal GI/Abdominal exam: Present: normal bowel sounds, soft. Absent: distended, tenderness - Extremities Exam Extremities exam: Present: warm. Absent: pedal edema, tenderness - Neurological Exam Neurological exam: Present: alert, CN II-XII intact, oriented X3, no focal deficits Internal Medicine: Result - Labs CBC & Chem 7: 09/16/17 02:56 09/16/17 02:56 Labs: Short CBC 09/16/17 Range/Units 02:56 WBC 19.0 H (4.3-11.1) K/mcL Hgb 12.9 (11.5-15.4) g/dL Hct 38.6 (35.3-44.9) % Plt Count 239 (140-400) K/mcL Neutrophils # 16.5 H (1.6-8.9) K/mcL BMP 09/16/17 02:56 Sodium 134 L D Potassium 3.4 L Chloride 106 Carbon Dioxide 16 L BUN 118 H Creatinine 2.66 H Glucose 105 H Calcium 8.8 Liver Function 09/16/17 Range/Units 02:56 Total Bilirubin 0.7 (0.2-1.2) mg/dL AST 16 (5-34) Units/L ALT 33 (0-55) Units/L Alkaline Phosphatase 113 (38-126) Units/L Albumin 2.3 L (3.5-5.0) g/dL Consult Discharge Plan - Plan Referrals: Hilary Henriquez DO [Primary Care Provider] - <Mandeep Matthew - Last Filed: 09/16/17 12:50> Date of Encounter: 09/16/17 - Constitutional Vitals: Temp Pulse Resp BP Pulse Ox 97.5 F L 73 16 110/72 100 09/16/17 11:36 09/16/17 11:36 09/16/17 11:36 09/16/17 11:36 09/16/17 11:36 Internal Medicine: Result - Labs CBC & Chem 7: 09/16/17 02:56 09/16/17 02:56 Labs: Short CBC 09/16/17 Range/Units 02:56 WBC 19.0 H (4.3-11.1) K/mcL Hgb 12.9 (11.5-15.4) g/dL Hct 38.6 (35.3-44.9) % Plt Count 239 (140-400) K/mcL Neutrophils # 16.5 H (1.6-8.9) K/mcL BMP 09/16/17 02:56 Sodium 134 L D Potassium 3.4 L Chloride 106 Carbon Dioxide 16 L BUN 118 H Creatinine 2.66 H Glucose 105 H Calcium 8.8 Liver Function 09/16/17 Range/Units 02:56 Total Bilirubin 0.7 (0.2-1.2) mg/dL AST 16 (5-34) Units/L ALT 33 (0-55) Units/L Alkaline Phosphatase 113 (38-126) Units/L Albumin 2.3 L (3.5-5.0) g/dL - Attending Attestation I have independently seen and examined this patient on 09 16 2017. 67-year-old female with medical history of colon cancer status post colostomy she is admitted at the management sepsis secondary to Escherichia coli UTI, acute kidney injury, hyponatremia. Imaging reveals worsening of metastatic Cancer Patient is seen and evaluated at the bedside, she denies new complaints. She actually reports improvement in the abdominal pain, nausea and vomiting. Colostomy bag is filled with watery diarrhea. Physical examination: Vital signs are stable, neurologic exam is unremarkable with no focal deficits. Oral mucosa is moist patient is not cyanotic or pale. Sclerae anicteric. Chest is clear to auscultation bilaterally. Heart sounds S1 and S2 on the normal murmurs. Abdomen is soft, right colostomy with greenish diarrhea. No pedal edema. Labs and imaging reviewed: Leukocytosis is improving, renal function is improving, rapid rise in sodium from 125 mEq on admission to 135 mg event this morning. Mild hypokalemia potassium 3.4. Abdomen and Pelvis CAT scan is reviewed. Assessment and plan: Sepsis/UTI/SARA/Peritoneal carcinomatosis. Continue current care. Ensure oncology evaluation. Follow final blood and urine culture Patient is full code. Rest of details has not resident physician's documentation.
[2017-09-16] MEDS ORDERED: Ringers Solution, Lactated 1,000 ML IVC SCH (13:15)
--- NOTE | 2017-09-16 15:12 | Palliative - Consult Note ---
Date of Encounter: 09/16/17 Time of Encounter: 15:10 - Assessment and Plan (1) Counseling regarding advanced care planning and goals of care Current Visit: Yes Status: Acute Assessment and plan: Attempted goals of care discussion with patient. She is sleepy this afternoon - no family present. Verbalizes frustration at not getting any rest, and keeps getting interrupted. She lives at home with significant other, Heber, her daughter and grandson. She has no healthcare POA and is not interested in doing one at this time. I did inform her that if she were unable to make medical decision for herself, her daughter would be the decision maker, as she is not legally , and she verbalized understanding. She had home health back when had abd surgery and new ostomy, but none since. States she is independent at home, and prepares own meals, cleans and cares for family. She stopped Xeloda and states she couldn't tolerate it. Follows with Dr. Peña at [facility]. Discussed briefly her clinical status, she understands that cancer is terminal and that eventually she will become sicker and require more care. Discussed options of home care and hospice - she acknowledged but not interested in discussing at this time. She did state she did not want intubation/vent or CPR/Defib for cardiac arrest - code status transitioned to DNR/DNI. State form completed and copies provided to pt. She is feeling better and hoping to be discharged home in the next few days. No symptoms for us to manage - Palliative will sign off, please reconsult if needed. (2) UTI (urinary tract infection) Current Visit: Yes Status: Acute Assessment and plan: Care under hospitalist team with fluids/antibiotics. Qualifiers: Indwelling urinary catheter type: unspecified Encounter type: initial encounter Qualified Code(s): T83.511A - Infection and inflammatory reaction due to indwelling urethral catheter, initial encounter; N39.0 - Urinary tract infection, site not specified; N39.0 - Urinary tract infection, site not specified (3) Metastatic cancer Current Visit: Yes Status: Acute Palliative-CN HPI - Data of Consult Consult date: 09/16/17 Requesting Physician: Mandeep Matthew MD Primary Care Provider: Reynaldo Mason - Consult Narrative History of present illness: Ms. Benito is a 67 year old female admitted and being treated for UTI after she had one-week history of nausea, decreased appetite and increasing weakness. She has past medical history of Stage III colon adenocarcinoma and is followed by Dr. Peña at [facility]. She has declined further treatment for her cancer. Most recently was on Xeloda but stopped her herself r/t intolerance. She is improving and feeling better. Leukocytosis improving and afebrile. Eating solids today and states she tolerated well. No family present during my visit. CC: Mandeep Matthew MD Past Med Surg Social Fam HX - Past Medical History Medical history: cancer, hypertension Psychiatric history: no psych history - Past Surgical History Surgical History: cholecystectomy - Social History Smoking Status: Never smoker Smokeless Tobacco Status: No Alcohol use: none Drug use: none - Family History Mother Living Status: Hx Family Cancer: Yes (bone) Father Hx Family Cancer: Yes (Prostate) Medications and Allergies No Known Home Drugs 09/15/17 [History] 3 Allergy/AdvReac Type Severity Reaction Status Date / Time No Known Allergies Allergy Verified 09/11/17 10:54 All systems: reviewed and no additional remarkable complaints except as stated ( generalized weakness) Palliative Care-Exam - Constitutional Vitals: Temp Pulse Resp BP Pulse Ox 97.5 F L 73 16 110/72 100 09/16/17 11:36 09/16/17 11:36 09/16/17 11:36 09/16/17 11:36 09/16/17 11:36 General appearance: Present: average body habitus - Head Head Exam: Present: normal inspection, normocephalic - Eye Eye exam: Present: normal appearance, PERRL - Respiratory Respiratory exam: Present: decreased breath sounds, CTAB - Cardiovascular Cardiovascular exam: Present: +S1, +S2 - GI/Abdominal Exam GI/Abdominal exam: Present: normal bowel sounds, soft additional comments: Ostomy intact - Extremities Exam Extremities exam: Present: normal capillary refill, normal inspection - Neurological Exam Neurological exam: Present: alert, oriented X3, strengths equal and symetr throughout - Skin Skin exam: Present: dry, pallor, warm Internal Medicine - CN: Reslt - Labs CBC & Chem 7: 09/16/17 02:56 09/16/17 02:56 Labs: Short CBC 09/16/17 Range/Units 02:56 WBC 19.0 H (4.3-11.1) K/mcL Hgb 12.9 (11.5-15.4) g/dL Hct 38.6 (35.3-44.9) % Plt Count 239 (140-400) K/mcL Neutrophils # 16.5 H (1.6-8.9) K/mcL BMP 09/16/17 02:56 Sodium 134 L D Potassium 3.4 L Chloride 106 Carbon Dioxide 16 L BUN 118 H Creatinine 2.66 H Glucose 105 H Calcium 8.8 Liver Function 09/16/17 Range/Units 02:56 Total Bilirubin 0.7 (0.2-1.2) mg/dL AST 16 (5-34) Units/L ALT 33 (0-55) Units/L Alkaline Phosphatase 113 (38-126) Units/L Albumin 2.3 L (3.5-5.0) g/dL Consult Discharge Plan - Plan Referrals: Hilary Henriquez, [Primary Care Provider] - Palliative Quality Palliative Quality: Screen for Code Status: Yes, Screen for Goals of Care: Yes, Screen for Pain: Yes, If Pain Regimen Started, Initiate Bowel Regimen: NA, Screen for Nausea/Vomitting: Yes Code Status: 09/16/17 14:41 DNR [Resuscitation Status: Active] [RES] Routine Comment: Resuscitation Status: [id number]
[2017-09-17] MEDS: *HR* Heparin 5,000 UNIT/ML VIAL SQ SCH (05:33)
[2017-09-17 06:07] LABS: Basophils # 0.1 K/mcL (0.0-0.2); Basophils % 0.3 %; Eosinophils # 0.1 K/mcL (0.0-0.6); Eosinophils % 0.7 %; Hematocrit 37.5 % (35.3-44.9); Hemoglobin 12.5 g/dL (11.5-15.4); Immature Granulocytes % 0.9 % (0-4); Lymphocytes # 0.9 K/mcL (0.6-4.6); Lymphocytes % 5.5 %; Mean Corpuscular HGB Conc 33.3 g/dL (31.6-35.5); Mean Corpuscular Hemoglobin 32.1 pg (28.0-33.3); Mean Corpuscular Volume 96.2 fL (83.0-100.0); Mean Platelet Volume 11.4 fL (9.4-12.4); Monocytes # 1.4 K/mcL (0.0-1.3); Monocytes % 8.3 %; Neutrophils # 13.7 K/mcL (1.6-8.9); Platelet Count 276 K/mcL (140-400); Red Cell Distribution Width 15.6 % (11.5-14.5); Segmented Neutrophils % 84.3 %
[2017-09-17 06:13] LABS: Potassium 3.4 mEq/L (3.5-4.5)
[2017-09-17 07:35] VITALS: BP 118/72
--- NOTE | 2017-09-17 08:14 | Discharge Summary ---
<Gabriel Lucas - Last Filed: 09/17/17 08:07> Date of Encounter: 09/17/17 Time of Encounter: 08:07 - Discharge Diagnosis (1) Sepsis Priority: Primary Status: Resolved Qualifiers: Sepsis type: sepsis due to unspecified organism Qualified Code(s): A41.9 - Sepsis, unspecified organism (2) UTI (urinary tract infection) Priority: Primary Status: Acute Qualifiers: Indwelling urinary catheter type: unspecified Encounter type: initial encounter Qualified Code(s): T83.511A - Infection and inflammatory reaction due to indwelling urethral catheter, initial encounter; N39.0 - Urinary tract infection, site not specified; N39.0 - Urinary tract infection, site not specified (3) SARA (acute kidney injury) Priority: Primary Status: Acute (4) Hyponatremia Priority: Secondary Status: Acute (5) History of colon cancer, stage III Priority: Secondary Status: Chronic (6) Hypothyroid Priority: Secondary Status: Chronic Qualifiers: Hypothyroidism type: unspecified Qualified Code(s): E03.9 - Hypothyroidism , unspecified - Discharge Medications Prescriptions: Sulfamethoxazole/Trimeth DS [Bactrim Ds] 1 each PO BID #4 tablet Home Medications: Sulfamethoxazole/Trimeth DS [Bactrim Ds] 1 each PO BID #4 tablet 09/17/17 [Rx] Allergies/Adverse Reactions: 3 Allergy/AdvReac Type Severity Reaction Status Date / Time No Known Allergies Allergy Verified 09/11/17 10:54 Date of admission: 09/15/17 11:20 Primary care physician: Reynaldo Mason Consults: 09/15/17 11:24 consult to us marketing director [Consult to Nutrition] [CONS] Routine Comment: Consulting Provider: NUTRITION Reason for Dietary Consult: PO Supplementation 09/16/17 09:16 Consult to Occupational Therapy [CONS] Routine Comment: Evaluate, develop and implement POC Reason for Consult: Weakness Consult to Physical Therapy [CONS] Routine Comment: Evaluate, develop and implement POC Reason for Consult: Weakness 09/16/17 11:07 Consult to Palliative Care [CONS] Routine Comment: Consulting Provider: Palliative Care [facility] Reason for Consult: Goals of care Call Completed: Yes Discharging clinician: Gabriel Lucas Anticipated date of discharge: 09/17/17 - Patient Status Disposition: Home, Self-Care Condition: Fair - Ambulatory Orders Ambulatory Orders: Basic Metabolic Panel [CHEM] Time Frame: 1 Week, Facility: [facility], Location: Lab - Discharge Instructions Instructions: Urinary Tract Infection in Women (DC), Hypothyroidism (DC), Sepsis (DC), Chronic Hypertension (DC), Bowel Obstruction (DC), Anemia (GEN) Follow Up With: Hilary Henriquez DO [Primary Care Provider] - 09/24/17 9:30 am (Please follow up as schedule in a week) Additional Instructions: Please complete your antibiotic. Please follow-up with your primary care physician in one week. Please have your labs checked the day before seeing her primary care physician. Please stay well hydrated. Please return for any new or worsening symptoms. - Diet and Activity Activity: increase activity as tolerated Diet: advance to your usual diet Interval History: Patient seen and examined at bedside. She states that she feels good today. She has no complaints. She is urinating without difficulty. She denies abdominal pain, chest pain, shortness of breath. Hospital course: Ms. Benito is a 67 year old female with history of stage IV colon cancer who presents with generalized weakness. On urinalysis the patient was found to have a urinary tract infection. She was placed on Rocephin and urine culture showed pansensitive Escherichia coli. Patient recovered nicely. Per review of the notes the patient is not interested in aggressive treatment for her cancer. [facility] the patient and she remains resistant to treatment and is not interested in other services including home health and/or hospice. The patient did change her CODE STATUS to DNR CCA/DNI. The patient will be discharged home to complete a 5 day course of antibiotics for urinary tract infection. - Time Spent with Patient Total time spent providing and/or coordinating discharge services: - Constitutional Vitals: Temp Pulse Resp BP Pulse Ox 97.6 F 69 14 118/72 100 09/17/17 07:26 09/17/17 07:26 09/17/17 07:26 09/17/17 07:26 09/17/17 07:26 General appearance: Present: A&O X 3, obese, answers questions appropriately - Respiratory Respiratory exam: Present: CTAB. Absent: rales, rhonchi, wheezes - Cardiovascular Cardiovascular exam: Present: RRR. Absent: gallop, rubs, systolic murmur - GI/Abdominal GI/Abdominal exam: Present: normal bowel sounds, soft. Absent: distended, tenderness - Extremities Exam Extremities exam: Present: warm. Absent: pedal edema, tenderness - Neurological Exam Neurological exam: Present: alert, CN II-XII intact, oriented X3, no focal deficits <Sonido Devi - Last Filed: 09/17/17 16:57> Date of Encounter: 09/17/17 Date of admission: 09/15/17 11:20 Primary care physician: Reynaldo Mason Consults: 09/15/17 11:24 consult to us marketing director [Consult to Nutrition] [CONS] Routine Comment: Consulting Provider: NUTRITION Reason for Dietary Consult: PO Supplementation 09/16/17 09:16 Consult to Occupational Therapy [CONS] Routine Comment: Evaluate, develop and implement POC Reason for Consult: Weakness Consult to Physical Therapy [CONS] Routine Comment: Evaluate, develop and implement POC Reason for Consult: Weakness 09/16/17 11:07 Consult to Palliative Care [CONS] Routine Comment: Consulting Provider: Palliative Care [facility] Reason for Consult: Goals of care Call Completed: Yes Hospital course: Ms. Benito is a 67 year old female - Time Spent with Patient Total time spent providing and/or coordinating discharge services: - Constitutional Vitals: Temp Pulse Resp BP Pulse Ox 97.6 F 69 14 118/72 100 09/17/17 07:26 09/17/17 07:26 09/17/17 07:26 09/17/17 07:26 09/17/17 07:26 - Attending Attestation I conducted a face to face diagnostic evaluation of this patient and my medical decision-making was reviewed with the Resident Physician, Dr. Gabriel Lucas. I agree with the documented findings, disposition and treatment plan as described except to the extent set forth below: Patient was admitted and treated for UTI. Urine culture grew multi-sensitive Escherichia coli. She has improved. She will be discharged home with Bactrim. She has a history of colon cancer for which she does not want to pursue any further treatment.
[2017-09-17] MEDS: cefTRIAXone 1,000 MG in Water for inj. (sterile) 10 ML IVP SCH ×2 (08:56→09:13)
[2017-09-17] MEDS ORDERED: Sulfamethoxazole/Trimeth DS 1 EACH TABLET PO ONE (09:10)
--- NOTE | 2017-09-18 07:04 | Electrocardiograph Report ---
[address] [place] [address] Test Date: 2017-09-15 Pat Name: Velvet Benito Department: 102 Room: 2A Gender: F Potash Flaker: Jania : 1950 Requested By: Senthil Carvajal Order Number: [id number] Reading MD: Linda Patton Measurements Intervals [place] Rate: 83 P: 102 UT: 175 QRS: 14 QRSD: 97 T: 59 QT: 362 QTc: 402 Interpretive Statements SINUS RHYTHM POSSIBLE INFERIOR MYOCARDIAL INFARCTION [30 ms Q WAVE IN II/aVF], OF INDETERMINATE AGE Electronically Signed On 09-18-2017 7:02:45 EST by Lnida Patton
== END 2017-09-17 09:57 | disposition home or self-care (01) | DRG 698 ==
LOC: EMEROO 03:48 → 2ANU 03:48 → SUATTDRO 11:20 → 2ANU 11:34
PROVIDERS: ADMIT Hospitalist; ATTEND Internal Medicine

== ENCOUNTER 2017-09-19 08:24 | Observation (INO) ==
[2017-09-19] MEDS ORDERED: Ondansetron 4 MG/2 ML VIAL IVP ONE (09:00)
[2017-09-19] MEDS ORDERED: 0.9 % Sodium Chloride 1,000 ML IVC ONE (09:00)
[2017-09-19 09:28] LABS: Hematocrit 40.9 % (35.3-44.9); Mean Corpuscular HGB Conc 34.5 g/dL (31.6-35.5); Mean Corpuscular Hemoglobin 32.4 pg (28.0-33.3); Platelet Count 402 K/mcL (140-400); Red Blood Count 4.35 M/mcL (3.82-4.97); Red Cell Distribution Width 15.4 % (11.5-14.5)
[2017-09-19 09:30] LABS: Hemoglobin 14.1 g/dL (11.5-15.4)
--- NOTE | 2017-09-19 09:39 | Emergency Department Note ---
Disposition Clinical Impression: Weakness, SARA (acute kidney injury) Nausea & vomiting Qualifiers: Vomiting type: unspecified Vomiting Intractability: unspecified Qualified Code( s): R11.2 - Nausea with vomiting, unspecified Disposition: Admitted As Inpatient Condition: Fair Time of Disposition: 13:16 Nausea/Vomiting/Diarrhea HPI - General Chief complaint: ED Nausea/Vomiting/Diarrhea Stated complaint: generalized weakness, n/v Time Seen by Provider: 09/19/17 08:32 Source: patient Limitations: no limitations Nursing Notes Reviewed: Yes Vital Signs Reviewed: Yes - History of Present Illness HPI Narrative: 67-year-old female history of colon cancer presents to the ED for nausea and vomiting in weakness. Patient reports persistent nausea to the point where she cannot take her antibiotics. She denies any recent fevers or chills. She was just recently admitted for dehydration and possible urinary tract infection. She currently does not take any chemotherapeutic medication since September 02. She denies any other complaints such as chest pain, shortness of breath or abdominal pain. She has a colostomy in the right upper quadrant performed by Dr. Barry in March 2017. Patient has good colostomy output no change in consistency. She denies any history of cardiac ischemic disease. Her oncologist is Dr. Peña, follow up appointment later this month September 30 Pt Subjective Complaint: nausea, vomiting - Related Data Home Medications Medication Instructions Recorded Confirmed No Known Home Drugs 09/19/17 09/19/17 Allergies Allergy/AdvReac Type Severity Reaction Status Date / Time No Known Allergies Allergy Verified 09/19/17 08:30 All systems ED: reviewed and negative except as stated. Review of Systems: As Per HPI Constitutional: Reports: weakness. Denies: fever, chills ENT ED: Denies: congestion, dysphagia Cardiovascular: Denies: dyspnea on exertion Respiratory: Denies: cough, dyspnea Gastrointestinal: Reports: nausea. Denies: abdominal pain, vomiting Genitourinary: Denies: urgency, dysuria Musculoskeletal: Denies: back pain, neck pain Integumentary: Denies: rash, abrasion Past Medical History - Past Medical History Attestation: Yes The following information was validated with the patient. Source: patient Medical history: Reports: cancer, hypertension Surgical history: Reports: cholecystectomy Psychiatric history: Reports: no psych history - Social History Smoking Status: Never smoker Smokeless Tobacco Status: No Alcohol use: Reports: none Drug use: Reports: none Physical Exam - General Limitations: no limitations General appearance: alert, in no apparent distress - Head Head exam: atraumatic, normocephalic, normal inspection - Eye Eye exam: Present: normal appearance, PERRL, EOMI. Absent: scleral icterus - ENT ENT exam: normal exam, normal oropharynx, mucous membranes dry - Neck Neck exam: Present: normal inspection, full ROM, trachea midline. Absent: tenderness - Chest Chest inspection: Present: normal inspection, symmetric chest wall rise - Respiratory Respiratory exam: Present: normal lung sounds bilaterally. Absent: respiratory distress, wheezes - Cardiovascular Cardiovascular exam: Present: regular rate, normal rhythm, normal heart sounds. Absent: systolic murmur, diastolic murmur - Abdominal Exam Abdominal exam: Present: soft, Non-Tender, normal bowel sounds, other ( colostomy right upper quadrant, pink). Absent: tenderness, distention, guarding , rebound, rigidity - Extremities Exam Extremities exam: Present: normal inspection, full ROM, normal capillary refill. Absent: tenderness, pedal edema, calf tenderness - Back Exam Back exam: Present: normal inspection, full ROM. Absent: tenderness - Neurological Exam Neurological exam: Present: alert, oriented X3 - Skin Skin exam: Present: warm, dry, intact, normal color. Absent: rash, diaphoresis , pallor Course Course Narrative: 67-year-old female presents for generalized weakness and concern for dehydration. Patient has been not nauseated over the past several days unable to take her medications. Patients afebrile. Vital signs are otherwise normal. She appears low week and she is currently not receiving any treatment for her cancer. Exam is otherwise unremarkable. Her mucosal membranes are dry. Will get a EKG as well as some basic labs. Will give her Zofran 8 mg for the nausea and a liter of fluids and reassess. - Reevaluation(s) Reevaluation #1: Patient has taken Xeloda for chemo, unsure if related. Patient has a large leukocytosis 26. It has been 29 just 4 days ago. Suspect this is likely part of her current treatment of urinary tract infection. Patients unaware of what antibiotic she takes at this time. Her creatinine function is also elevated compared to a month ago. Concern for acute kidney injury possibly secondary to dehydration. BUN is elevated as well. She has received 1 L of normal saline with some improvement. Zofran helps with the nausea. EKG is unremarkable. Urine does not appear infected at this time. Would recommend continuing antibiotic regimen. Her labs are abnormal but appear at baseline compared to last week. carnival worker Virgen has spoken to the patient and has set up home health if patient is discharged. She is in agreement with this plan. Will consult with her room service manager/oncologist on this plan. Impression is generalized weakness, nausea vomiting, acute kidney injury. - Consultations Consultation #1: Spoke the on-call oncologist French Carvajal, will discuss with Dr. Peña. Time: 11:37 Consultation #2: Spoke with French Carvajal spoke with Dr. Peña, recommend admission for possible palliative care evaluation and symptom control. Discussed her leukocytosis and if medication could contribute, unsure. Leukocytosis and persistent over the past week. Time: 12:08 Consultation #3: Spoke with on-call hospitalist Dr. Alex, ok to admit for generalized weakness, SARA, nausea/vomiting. No further orders at this time Time: 13:12 Vital Signs Temperature 97.2 F L 09/19/17 08:28 Pulse Rate 102 09/19/17 08:28 Respiratory Rate 16 09/19/17 08:28 Blood Pressure 121/80 09/19/17 08:28 O2 Sat by Pulse Oximetry 97 09/19/17 08:28 Temperature 98.4 F 09/19/17 18:44 Pulse Rate 78 09/19/17 18:44 Respiratory Rate 16 09/19/17 18:44 Blood Pressure 116/70 09/19/17 18:44 O2 Sat by Pulse Oximetry 99 09/19/17 18:44 Oxygen Delivery Oxygen Delivery Room Air Nausea/Vomiting/Diarrhea - MDM Narrative Medical decision making narrative: Patient was discussed with my attending physician who agrees with ED management and final disposition. They independently evaluated the patient. Please refer to their attestation to this encounter for additional information. This note was generated by [employer] voice recognition software and as a result grammatical or spelling errors may occur using this program. - Medical Records Medical records reviewed: Yes I reviewed the patient's medical records. - Lab Data Lab results reviewed: Yes I reviewed the patient's lab results. Result diagrams: 09/19/17 09:20 09/19/17 09:20 Lab Results 09/19/17 09/19/17 09/19/17 Range/Units 09:20 09:20 10:10 WBC 25.8 H D (4.3-11.1) K/mcL RBC 4.35 (3.82-4.97) M/mcL Hgb 14.1 D (11.5-15.4) g/dL Hct 40.9 (35.3-44.9) % MCV 94.0 (83.0-100.0) fL MCH 32.4 (28.0-33.3) pg MCHC 34.5 (31.6-35.5) g/dL RDW 15.4 H (11.5-14.5) % Plt Count 402 H (140-400) K/mcL MPV 11.0 (9.4-12.4) fL Seg Neutrophils % 90.0 % Lymphocytes % 2.0 % Monocytes % 8.0 % Neutrophils # 23.2 H (1.6-8.9) K/mcL Lymphocytes # 0.5 L (0.6-4.6) K/mcL Monocytes # 2.1 H (0.0-1.3) K/mcL Platelet Estimate Normal (Normal) Sodium 134 L (136-145) mEq/L Potassium 3.6 (3.5-4.5) mEq/L Chloride 105 (98-109) mEq/L Carbon Dioxide 15 L (19-29) mEq/L BUN 69 H (7-20) mg/dL Creatinine 3.38 H D (0.57-1.11) mg/dL Est GFR ( Amer) 16 L (> 60) Est GFR (Non-Af Amer) 13 L (> 60) BUN/Creatinine Ratio 20 (6-26) Glucose 146 H (70-99) mg/dL Calculated Osmolality 301 H (280-300) Calcium 10.4 D (8.6-10.8) mg/dL Urine Color Dark Yellow (Yellow) Urine Clarity Hazy A (Clear) Urine pH 6.0 (5.0-8.0) pH Units Ur Specific [place] 1.027 H (1.010-1.025) Urine Protein 30 H (Neg-Trace) mg/dL Urine Glucose (UA) Normal (Normal) mg/dL Urine Ketones Negative (Negative) mg/dL Urine Blood Moderate H (Negative) Urine Nitrite Negative (Negative) Urine Bilirubin Small H (Negative) Urine Urobilinogen Normal (Normal) mg/dL Ur Leukocyte Esterase Negative (Negative) Urine Microscopic RBC 3-5 H (0-3) per hpf Urine Microscopic WBC 15-30 H (0-3) per hpf Ur Squamous Epith Cells Many H (None-Few) per lpf Ur Renal Epithelial Cell Few (None-Few) per hpf Urine Bacteria None Seen (None-Few) per hpf Hyaline Casts Few (None-Few) per lpf Granular Casts Few H (None Seen) per lpf Urine Yeast Test Not Performed Ur Culture Indicated? NO (NO) - Radiology Data Radiology results reviewed: Yes I reviewed the patient's radiology results. Chest X-Ray 09/19/17 10:16 IMPRESSION: No active cardiopulmonary disease D/ / Bryson Wilkerson MD / Bryson Wilkerson MD Interpreting Provider: Bryson Wilkerson MD - EKG Data EKG attestation: Yes I reviewed and interpreted this EKG. EKG results narrative: EKG performed 836 sinus tachycardia 10 1 bpm, Q waves in inferior leads, no ST elevations or depression, no T wave inversion, normal axis, good R wave progression. Intervals are within normal limits. Compared to old EKG performed 09/15/2017 shows similar consistent findings. No acute ischemic changes. Attestation Statement - Attestation Attestation: I examined this patient and my medical decision-making was reviewed with the Resident Physician. I agree with the documented findings, disposition and treatment plan as described.
[2017-09-19 09:40] LABS: Calcium 10.4 mg/dL (8.6-10.8); Potassium 3.6 mEq/L (3.5-4.5)
[2017-09-19 09:53] LABS: Lymphocytes # 0.5 K/mcL (0.6-4.6); Monocytes # 2.1 K/mcL (0.0-1.3); Neutrophils # 23.2 K/mcL (1.6-8.9); Platelet Estimate Normal (Normal)
[2017-09-19 10:19] LABS: Bilirubin,Urine Small (Negative); Blood,Urine Moderate (Negative); Color,Urine Dark Yellow (Yellow); Glucose,Urine (UA) Normal (Normal); Ketones,Urine Negative (Negative); Leukocyte Esterase,Urine Negative (Negative); Nitrite,Urine Negative (Negative); Protein,Urine 30 mg/dL (Neg-Trace); Specific Gravity,Urine 1.027 (1.010-1.025); Urobilinogen,Urine Normal (Normal)
[2017-09-19 10:21] LABS: Bacteria,Urine None Seen per hpf (None-Few); Squamous Epithelial Cell,Urine Many per lpf (None-Few); WBC,Urine 15-30 per hpf (0-3)
[2017-09-19 10:23] LABS: Clarity,Urine Hazy (Clear)
[2017-09-19 10:31] LABS: Renal Epithelial Cells,Urine Few per hpf (None-Few)
[2017-09-19 10:32] LABS: Granular Casts,Urine Few per lpf (None Seen); Hyaline Casts,Urine Few per lpf (None-Few)
[2017-09-19] MEDS ORDERED: Naloxone 0.4 MG/ML INJ IVP PRN (14:03)
[2017-09-19] MEDS ORDERED: Ondansetron 4 MG/2 ML VIAL IVP PRN (14:03)
[2017-09-19] MEDS ORDERED: Acetaminophen 325 MG TABLET PO PRN (14:03)
[2017-09-19] MEDS ORDERED: 0.9 % Sodium Chloride 1,000 ML IVC SCH (14:15)
--- NOTE | 2017-09-19 14:35 | Internal Med History&Physical ---
Date of Encounter: 09/19/17 Time of Encounter: 14:32 Assessment and Plan (1) SARA (acute kidney injury) Current visit: Yes Status: Acute 1 creatinine is 3.38 appears the patient has been increasing over the past month GFR 16 at this time. Suspect this may be prerenal secondary to dehydration patient has had poor oral intake with nausea however she was just recently treated for a UTI and did receive Bactrim which also may be contributing to increasing creatinine. Nephrology has been consulted We will give gentle IV fluids overnight Obtain urine creatinine and sodium Check renal ultrasound Monitor intake and output daily weights Avoid nephrotoxins (2) Weakness generalized Current visit: Yes Status: Chronic Patient has been experiencing generalized fatigue and malaise. This may be related to recent UTI/SRAA we will give gentle IV fluids Consult social media marketing specialist for discharge planning patient may require home health- she does live with her significant other and states she is able to perform her ADLs however she is very tired and needs to rest frequently Consult dietary for nutritional supplements Continue with Zofran for nausea (3) History of colon cancer, stage III Current visit: No Status: Chronic Patient has a history of stage III colon cancer she was receiving Xaloda however she stopped taking on September 02 due to side effects-she is being followed by [facility]- they have been consulted per ER (4) DVT prophylaxis Current visit: No Status: Acute Heparin subcutaneous Internal Medicine - H&P: HPI Chief complaint: weakness Admitted From: Emergency Dept Plans for Post Hospital Care: Home History of present illness: Ms. Benito is a 67 year old female past medical history of hypertension and stage III: Adenocarcinoma osteoporosis hyperlipidemia. Patient has been experiencing weakness generalized malaise nausea and vomiting for the past several days. She was admitted to this facility approximately a week ago for dehydration UTI she was discharged on Bactrim which she states she completed yesterday. She does have history of colon cancer and is a patient of Dr.Krishnanat [facility] oncology. She does not take any chemotherapy-she stopped due to side effects her last dose was on September 02. She is to follow-up with oncology later this month. She states that she just does not feel well and she is tired and sleeps a lot. She is able to complete her ADLs however she has poor appetite and has only been eating Jell-O and broth. She does have a colostomy in the right upper quadrant with no change in consistency of output. She denies any fevers chills urinary symptoms abdominal pains cough or chest pain. She presented to the ER with the above complaints. Lab work was completed which did reveal a KI chest x-ray with no acute process. She has been admitted for further workup and evaluation. Presently patient does not appear to be any respiratory distress and she denies any pain or discomfort at this time. She is hemodynamically stable at this time. I did discuss CODE STATUS with the patient 's last admission patient was a DNR CCA DNI she expressed that she would like to continue this CODE STATUS. I did review this case with Dr. Alex who agrees with plan. Past Med Surg Social Fam HX - Past Medical History Medical history: cancer, hypertension Psychiatric history: no psych history - Past Surgical History Surgical History: cholecystectomy - Social History Smoking Status: Never smoker Smokeless Tobacco Status: No Alcohol use: none Drug use: none - Family History Mother Living Status: Hx Family Cancer: Yes (bone) Father Hx Family Cancer: Yes (Prostate) Internal Medicine - H&P: Meds No Known Home Drugs 09/19/17 [History] 3 Allergy/AdvReac Type Severity Reaction Status Date / Time No Known Allergies Allergy Verified 09/19/17 08:30 All Systems PM: A 10-system review of systems was performed and is negative for pertinent findings except as documented above in the HPI. - Constitutional Constitutional: anorexia, fatigue, lethargy, weakness, no chills, no fever(s), no night sweats - EENT Eyes: no change in vision, no discharge, no pain, no photophobia Nose, mouth and throat: no dysphagia, no nasal discharge, no neck pain, no sore throat - Cardiovascular Cardiovascular ROS IM: no chest pain, no diaphoresis, no dyspnea, no lightheadedness, no palpitations, no syncope - Respiratory Respiratory: no cough, no dyspnea, no wheezing, no excessive phlegm production - Gastrointestinal Gastrointestinal: nausea - Genitourinary Genitourinary: no change in urinary stream, no dysuria, no flank pain, no hematuria - Musculoskeletal Musculoskeletal ROS IM: no numbness, no tingling - Integumentary Integumentary IM: no rash, no unusual bruising - Neurological Neurological ROS: no confusion, no convulsions, no focal weakness, no numbness, no tingling, no tremor(s) - Hematologic/Lymphatic Hematologic/Lymphatic: no easy bruising - Constitutional Vitals: Temp Pulse Resp BP Pulse Ox 97.7 F 93 20 117/78 100 09/19/17 14:25 09/19/17 14:25 09/19/17 14:25 09/19/17 14:25 09/19/17 14:25 General appearance: Present: A&O X 3 - Head Head exam: Present: atraumatic, normocephalic - Eye Eye exam: Present: PERRL, conjuntiva pink, sclera anicteric Pupils: Present: PERRL - Neck Neck exam general surgery: Present: supple, trachea midline. Absent: lymphadenopathy - Respiratory Respiratory exam: Present: CTAB. Absent: accessory muscle use, rales, rhonchi, wheezes - Cardiovascular Cardiovascular exam: Present: RRR, +S1, +S2. Absent: diastolic murmur, gallop, rubs, systolic murmur - GI/Abdominal GI/Abdominal exam: Present: normal bowel sounds, soft, no peritoneal signs. Absent: distended, tenderness - Extremities Exam Extremities exam: Present: warm, radial pulses palpable and symmetrical. Absent : calf tenderness, cyanotic, pedal edema - Neurological Exam Neurological exam: Present: CN II-XII intact, oriented X3, no focal deficits. Absent: pronater drift, facial droop, speech deficit - Skin Skin exam: Present: dry, intact Internal Med - H&P Results - Labs CBC & Chem 7: 09/19/17 09:20 09/19/17 09:20 - EKG Data EKG shows normal: sinus rhythm - Diagnostic Studies Other Images Additional comments: Chest X-Ray 09/19/17 10:16 IMPRESSION: No active cardiopulmonary disease D/ / Bryson Wilkerson MD / Bryson Wilkerson MD Interpreting Provider: Bryson Wilkerson MD
--- NOTE | 2017-09-19 16:44 | Event Note ---
Date of Encounter: 09/19/17 Time of Encounter: 16:00 Discussed with RAFAEL and agree with assessment and plan. Will observe patient for generalized weakness in hematology/oncology will follow Suspect generalized weakness secondary to chemotherapy and acute renal failure; nephrology also consulted
[2017-09-19] MEDS: *HR* Heparin 5,000 UNIT/ML VIAL SQ SCH (17:52)
--- NOTE | 2017-09-19 18:18 | Oncology Inp Consult Note ---
Date of Encounter: 09/20/17 Time of Encounter: 18:14 Assessment and Plan (1) SARA (acute kidney injury) Status: Acute Assessment and plan: Is hospitalized creatinine of 4.8 on 09/15/2017 improved to 2.1 but creatinine again elevated around 3.4. Nephrology consulted. She stopped Xeloda on 08/29/2017. I do not think it is playing a role at this time for her renal insufficiency Her creatinine is improving with IV fluids. She understands she needs to get her kidney function improved before she would start to feel better. She wants to go home and not interested in going to extended care facility at this time. (2) Leukocytosis Status: Acute Assessment and plan: Leukocytosis. Neutrophil count around 23,000. Possible sepsis. She had you call a UTI on 09/15/2017. Blood cultures negative at that time. She may benefit from IV antibiotics Clinically she does not look septic Qualifiers: Leukocytosis type: monocytosis Qualified Code(s): D72.821 - Monocytosis ( symptomatic) (3) Recurrent carcinoma of colon Status: Acute Assessment and plan: She had adjuvant Xeloda prematurely at 5-1/2 cycles She has progressive disease with also enlarging perineal nodularity AND multiple mesenteric lymph nodes smaller 7 mm. She also has carcinoid and could be progressing and she has elevated chromogranin 328 on 09/02/2017. Her CEA remains low at 3.4. She may also h endometrial carcinoma with endometrial thickening and vaginal bleeding. She needs follow-up with TRANSPLANT WORKER for vaginal bleeding. According to her the bleeding has stopped now - Data of Consult Patient: known to practice within the last 3 years Requesting Physician: Yanique Garcia CNP Primary Care Provider: Reynaldo Mason - Consult Narrative Reason for consult: Acute renal injury. Colon Cancer and carcinoid History of present illness: Ms. Benito is a 67 year old female Oncology History: Diagnosis 1. Stage III colon adenocarcinoma. Preoperative CEA 1.1 PT 3c, N2, 02/21 lymph node involvement, M0 stage III B, grade 1 involving splenic flexure post transverse colectomy 09/01/[address] Ever Travis Adjuvant FOLFOX 6 months from 11/10/2009 to 03/24/2010 2. Colon cancer in the anastomotic site. T3, PN2a, 01/24 lymph nodes positive, pMX, stage IIIB. Also positive small bowel mesentery deposit area grade 2. Perineural and lymphovascular invasion present Post colon resection including appendix small bowel mesentery nodule transverse colon and sigmoid colon by Dr. Barry on 04/06/2017 CEA elevated at 9 on 04/05/2017 She has a right lower quadrant colostomy 3. 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 Xeloda 1500 mg by mouth twice a day day one through 14 every 21 day . Patient stopped treatment prematurely after 5-1/2 cycles on 09/01/2017 due to side effects Past medical hx: hypertension colon cancer with positive lymph nodes osteoporosis hyperlipidemia -pt denies irritable bowel syndrome bowel obstruction ileus malignant carcinoid of small bowel, now metastatic Evaluated in the emergency room 09/10/2017 for vaginal bleeding. This is been going on for 1 week. Pelvic exam showed some clot but no active bleeding. Overall her bleeding has slowed down. She has appointment with TRANSPLANT WORKER later today. A pelvic ultrasound on 09/10/2017 showed endometrial thickening 1.8 cm. This is concerning for endometrial carcinoma CT abdomen and pelvis with IV contrast 08/23/2017 showed increase in the soft tissue density currently 4.4 cm in the left side of perineum. This was discussed at the colon tumor board last week. She has follow-up with TRANSPLANT WORKER for endometrial biopsy alignment Dr. Barry was also in the meeting. Possible biopsy of the peritoneal nodule. Surgical hx: colon resection 08/2009 for stage III colon cancer colonoscopy 04/2012 [facility] small bowel resection-Dr. Sol 07/21/2014 bowel surgery has colostomy bag now 04/07/2017 Open Cholecystectomy 08/2008 Family hx: Father: , prostate cancer Mother: 74 yrs, Bone cancer 1 brother(s) 1daughter(s) - healthy denies family hx of colon/rectal cancer Social hx: No alcohol Non smoker Past Med Surg Social Fam HX - Past Medical History Medical history: cancer, hypertension Psychiatric history: no psych history - Past Surgical History Surgical History: cholecystectomy - Social History Smoking Status: Never smoker Smokeless Tobacco Status: No Alcohol use: none Drug use: none - Family History Mother Living Status: Hx Family Cancer: Yes (bone) Father Hx Family Cancer: Yes (Prostate) Medications and Allergies No Known Home Drugs 09/19/17 [History] 3 Allergy/AdvReac Type Severity Reaction Status Date / Time No Known Allergies Allergy Verified 09/19/17 08:30 Review of systems: Fatigue. Dehydrated Oncology - Exam - Constitutional Vitals: Temp Pulse Resp BP Pulse Ox 97.7 F 93 20 117/78 100 09/19/17 14:25 09/19/17 14:25 09/19/17 14:25 09/19/17 14:25 09/19/17 14:25 Exam: GENERAL: Alert and oriented, lethargic. Mental Status: Affect appropriate for circumstances HEENT: Sclerae anicteric. No mucositis or thrush. No other oral or pharyngeal lesions or erythema. Skin: No rashes or petechiae. No evidence of skin malignancy Lymph nodes: No cervical, supraclavicular, axillary, or inguinal adenopathy. Lungs: Air entry normal with normal breath sounds. No rhonchi or wheezing Cardiovascular: Regular rate and rhythm. No skipped beats Abdomen: Soft, nontender; no organomegaly or masses palpable. Extremities: No edema. No calf swelling or tenderness. No joint deformity. Neurologic: Alert, cranial nerves II-XII intact; normal gait; no focal weakness or sensory abnormalities Consult Discharge Plan - Plan Referrals: Hilary Henriquez DO [Primary Care Provider] -
--- NOTE | 2017-09-19 19:01 | Electrocardiograph Report ---
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
[2017-09-19 20:57] LABS: Creatinine,Urine 146 mg/dL; Sodium, Urine < 20.0 mEq/L
[2017-09-20] MEDS: *HR* Heparin 5,000 UNIT/ML VIAL SQ SCH ×2 (05:01→17:15)
[2017-09-20 05:09] LABS: Basophils # 0.1 K/mcL (0.0-0.2); Basophils % 0.3 %; Eosinophils # 0.2 K/mcL (0.0-0.6); Eosinophils % 0.8 %; Hematocrit 38.6 % (35.3-44.9); Hemoglobin 12.7 g/dL (11.5-15.4); Immature Granulocytes % 1.2 % (0-4); Lymphocytes % 5.5 %; Mean Corpuscular HGB Conc 32.9 g/dL (31.6-35.5); Mean Corpuscular Hemoglobin 32.4 pg (28.0-33.3); Mean Corpuscular Volume 98.5 fL (83.0-100.0); Mean Platelet Volume 11.2 fL (9.4-12.4); Monocytes # 1.2 K/mcL (0.0-1.3); Monocytes % 6.6 %; Neutrophils # 15.3 K/mcL (1.6-8.9); Platelet Count 298 K/mcL (140-400); Red Blood Count 3.92 M/mcL (3.82-4.97); Red Cell Distribution Width 15.4 % (11.5-14.5); Segmented Neutrophils % 85.6 %
[2017-09-20 05:23] LABS: Calcium 9.3 mg/dL (8.6-10.8); Potassium 3.3 mEq/L (3.5-4.5)
--- NOTE | 2017-09-20 15:28 | Nephrology Consult Note ---
Date of Encounter: 09/20/17 Time of Encounter: 13:30 Assessment and Plan (1) SARA (acute kidney injury) Current Visit: Yes Status: Acute Elevated Scr in the setting of N/V, bactrim and poor po intake Encourage adequate fluid intake Avoid nephrotoxins if possible No acute indication for FINISHING SUPERVISOR at this time Check urine sodium, ceratinine, eosinophils Check CPK and uric acid levels (2) Metabolic acidosis Current Visit: Yes Status: Acute Needs bicarb gtt (3) Hypokalemia Current Visit: Yes Status: Acute Replete potassium History of Present Illness - Reason for Consult Consult date: 09/20/17 Acute Kidney Injury Requesting physician: Yasmin Duran - History of Present Illness 67 y o female with PMH of colon cancer s/p resection with colostomy and on xeloda till middle of last month admitted with intractable nausea and vomiting and SARA for the past week. Scr noted at 3.38, GFR 13 on presentation yesterday but actually peaked at 4.85, GFR 9 as of september 11. She reports poor po intake in general. Decreased UOP noted. She was treated with bactrim for UTI discontinued yesterday. No NSAIDs use. Baseline GFr typically >60 Past Med Surg Social Fam HX - Past Medical History Medical history: cancer, hypertension Psychiatric history: no psych history - Past Surgical History Surgical History: cholecystectomy - Social History Smoking Status: Never smoker Smokeless Tobacco Status: No Alcohol use: none Drug use: none - Family History Mother Living Status: Hx Family Cancer: Yes (bone) Father Hx Family Cancer: Yes (Prostate) Medications and Allergies No Known Home Drugs 09/19/17 [History] 3 Allergy/AdvReac Type Severity Reaction Status Date / Time No Known Allergies Allergy Verified 09/19/17 08:30 Review of Systems All Systems: reviewed and no additional remarkable complaints except as stated ( 10 systems reviewed) Exam - Vital Signs Vital signs: Initial Vital Signs Temp Pulse Resp BP Pulse Ox 97.2 F L 102 16 121/80 97 09/19/17 08:28 09/19/17 08:28 09/19/17 08:28 09/19/17 08:28 09/19/17 08:28 Vital Signs - Last 8 Hours Temp Pulse Resp BP Pulse Ox 09/20/17 11:09 98.2 F 82 18 118/77 98 09/20/17 09:08 100 09/20/17 07:28 97.4 F L 79 17 106/70 100 Intake and Output 09/19/17 09/20/17 09/20/17 23:59 07:59 15:59 Intake Total 580 / 580 Output Total 300 / 300 300 / 300 Balance -300 / -300 -300 / -300 580 / 580 Intake: Oral 580 / 580 Output: Urine 300 / 300 Stool 300 / 300 Other: Meal Breakfast Percent of Meal Consumed 100% Stool Size Moderate Stool Consistency liquid loose Stool Characteristics Seedy Stool Color Jerrod Colored Brown # Bowel Movements 2 - General Appearance General appearance: chronically ill (NAD) EENT: ATNC, mucous membranes dry Neck: no JVD, supple Respiratory: clear Cardiology: no edema, normal S1, normal S2 Gastrointestinal: no tenderness, no guarding, obese (+colostomy) Integumentary: warm and dry Neurologic: no focal deficit Musculoskeletal: no deformities Psychiatric: mood/affect appropriate, cooperative Results - Lab Results 09/20/17 04:26 09/20/17 04:26 Most recent lab results Calcium 9.3 mg/dL (8.6-10.8) 09/20/17 04:26 Magnesium 2.0 mg/dL (1.6-2.6) 09/20/17 04:26 Urine Creatinine 146 mg/dL 09/19/17 20:38 Urine Sodium < 20.0 mEq/L 09/19/17 20:38 Consult Discharge Plan - Plan Referrals: Hilary Henriquez DO [Primary Care Provider] - 09/24/17 9:30 am Yvonne Burnett CNP [Partnered Physician] - 09/30/17 10:00 am
[2017-09-20] MEDS ORDERED: Potassium Chloride Elixir 20 MEQ/15 ML UDC PO ONE (15:36)
[2017-09-20] MEDS ORDERED: Sodium Bicarbonate 150 MEQ in D5% in Water 1,000 ML IVC SCH (15:45)
[2017-09-20 16:33] LABS: Uric Acid 9.5 mg/dL (2.6-6.0)
--- NOTE | 2017-09-20 19:14 | Internal Med Progress Note ---
Date of Encounter: 09/20/17 Time of Encounter: 08:35 - Assessment and plan (1) SARA (acute kidney injury) Current Visit: Yes Status: Acute Assessment and plan: Serum creatinine was elevated on admission, GFR is decreased. Suspect this is secondary to weakness, patient unable to stay hydrated. Patient also reports nausea which is affecting her hydration status. Patient also being treated for UTI with Bactrim, this could be contributing to worsening renal function. Patient has been seen by nephrology and had a retroperitoneal ultrasound. Patient appeared to be tolerating clear liquid diet well today. Continue to avoid nephrotoxins. Recheck labs in the morning. (2) Weakness generalized Current Visit: Yes Status: Chronic Assessment and plan: Weakness is multifactorial. Could be due to physical deconditioning, chemotherapy, metastatic cancer, as well as dehydration and UTI. Patient reports she has felt this way for several months, worse since . Patient will be seen by physical therapy and occupational therapy. Fall precautions and bed alarm. Consult social services aide for discharge planning. (3) DVT prophylaxis Current Visit: Yes Status: Acute Assessment and plan: Heparin subcutaneous. (4) History of colon cancer, stage III Current Visit: Yes Status: Chronic Assessment and plan: With history stage III adenocarcinoma. Colon cancer. Patient was receiving chemotherapy, however she stopped taking it around due to side effects. She reported that she was having numbness and tingling in her feet that was unbearable. She states that chemotherapy just took a great toll on her and she was not willing to continue at this time. She will follow up with oncology. Patient was also evaluated by oncology in the hospital. They do not feel that the chemotherapy is contributory to her renal insufficiency. Primary oncology note patient has progressive disease with enlarging perineal nodularity and multiple mesenteric lymph nodes. She may also have endometrial carcinoma with endometrial thickening and vaginal bleeding. She will need to follow-up with CARPET INSPECTOR FINISHED for this. She denies vaginal bleeding at this time. (5) HTN (hypertension) Current Visit: Yes Status: Chronic Assessment and plan: Blood pressure has been well controlled. Continue home medications. Continue to monitor vital signs. Qualifiers: Hypertension type: essential hypertension Qualified Code(s): I10 - Essential (primary) hypertension - Time Spent With Patient less than 15 minutes - Subjective Interval history: Patient was seen and assessed at 8:35 AM. She is sitting at bedside in her chair, eating her breakfast. She has a clear liquid tray. Later in the day she requested to advance her diet. She tolerated it well. Patient reports that she has been weak since and is not getting any better. There is no big change that prompted her admission other than she was just not getting better. She denies becoming worse. Patient lives with a male friend. She denies headache, dizziness, blurred vision. She denies abdominal pain or chest pain. She denies nausea vomiting or diarrhea. She denies fever or chills. Patient is ready to have PT and OT and is agreeable to placement if necessary. - Constitutional Vitals: Temp Pulse Resp BP Pulse Ox 97.6 F 53 15 116/71 95 09/20/17 15:53 09/20/17 15:53 09/20/17 15:53 09/20/17 15:53 09/20/17 15:53 General appearance: Present: cooperative, A&O X 3, pleasant, answers questions appropriately - Head Head exam: Present: atraumatic, normal inspection, normocephalic - Eye Eye exam: Present: normal appearance, conjuntiva pink, sclera anicteric - Neck Neck exam general surgery: Present: supple, trachea midline. Absent: lymphadenopathy, tenderness - Respiratory Respiratory exam: Present: CTAB. Absent: accessory muscle use, chest wall tenderness, decreased breath sounds, rales, respiratory distress, rhonchi, wheezes - Cardiovascular Cardiovascular exam: Present: RRR, +S1, +S2. Absent: diastolic murmur, gallop, rubs, systolic murmur - GI/Abdominal GI/Abdominal exam: Present: distended, normal bowel sounds, soft. Absent: tenderness - Extremities Exam Extremities exam: Present: warm, radial pulses palpable and symmetrical. Absent : calf tenderness, cyanotic, normal capillary refill, normal inspection, pedal edema, tenderness - Neurological Exam Neurological exam: Present: alert, oriented X3, no focal deficits. Absent: facial droop, speech deficit - Skin Skin exam: Present: dry, intact, normal color, warm. Absent: rash Internal Medicine: Result - Labs CBC & Chem 7: 09/20/17 04:26 09/20/17 04:26 Labs: Short CBC 09/20/17 Range/Units 04:26 WBC 17.9 H (4.3-11.1) K/mcL Hgb 12.7 (11.5-15.4) g/dL Hct 38.6 (35.3-44.9) % Plt Count 298 (140-400) K/mcL Neutrophils # 15.3 H (1.6-8.9) K/mcL BMP 09/20/17 04:26 Sodium 135 L Potassium 3.3 L Chloride 107 Carbon Dioxide 12 L BUN 62 H Creatinine 2.69 H Glucose 93 Calcium 9.3 Consult Discharge Plan - Plan Referrals: Hilary Henriquez DO [Primary Care Provider] - 09/24/17 9:30 am Yvonne Burnett CNP [Partnered Physician] - 09/30/17 10:00 am
[2017-09-21] MEDS: *HR* Heparin 5,000 UNIT/ML VIAL SQ SCH ×2 (06:30→17:36)
[2017-09-21 08:20] LABS: Potassium 3.9 mEq/L (3.5-4.5)
--- NOTE | 2017-09-21 09:56 | Nephrology Progress Note ---
Date of Encounter: 09/21/17 Time of Encounter: 10:15 - Assessment and Plan (1) SARA (acute kidney injury) Current Visit: Yes Status: Acute (2) Metabolic acidosis Current Visit: Yes Status: Acute (3) Hypokalemia Current Visit: Yes Status: Acute Objective - Vital Signs Vital signs: Vital Signs Temp Pulse Resp BP Pulse Ox 09/21/17 06:53 97.8 F 79 17 117/76 99 09/20/17 22:19 98.1 F 92 16 121/78 97 09/20/17 15:53 97.6 F 53 15 116/71 95 09/20/17 15:39 97.4 F L 100 16 116/77 100 09/20/17 11:09 98.2 F 82 18 118/77 98 Intake and Output 09/20/17 09/21/17 09/21/17 23:59 07:59 15:59 Intake Total 1600 / 1600 Balance 1600 / 1600 Intake: IV Fluids 1000 / 1000 Sodium Bicarbonate 150 MEQ In 1000 / 1000 Dextrose 5% 1,000 ML @ 75 mls/ hr IVC .[id number] [facility] Rx#: [id number] Oral 600 / 600 Other: Meal Breakfast Weight 79.832 kg Patient Weight 09/21/17 23:59 Weight 79.832 kg - Lab 09/20/17 04:26 09/21/17 08:03 Most recent lab results Calcium 9.0 mg/dL (8.6-10.8) 09/21/17 08:03 Magnesium 2.0 mg/dL (1.6-2.6) 09/20/17 04:26 Urine Creatinine 146 mg/dL 09/19/17 20:38 Urine Sodium < 20.0 mEq/L 09/19/17 20:38 Consult Discharge Plan - Plan Referrals: Hilary Henriquez DO [Primary Care Provider] - 09/24/17 9:30 am Yvonne Burnett CNP [Partnered Physician] - 09/30/17 10:00 am
--- NOTE | 2017-09-21 14:52 | Internal Med Progress Note ---
Date of Encounter: 09/21/17 Time of Encounter: 09:20 - Assessment and plan (1) SARA (acute kidney injury) Current Visit: Yes Status: Acute Assessment and plan: Serum creatinine was elevated on admission, GFR is decreased. Suspect this is secondary to weakness, patient unable to stay hydrated. Patient also reports nausea which is affecting her hydration status. Patient also being treated for UTI with Bactrim, this could be contributing to worsening renal function. Patient has been seen by nephrology and had a retroperitoneal ultrasound. Renal function continues to improve. Serum creatinine is 2.09, GFR 23. Improved since admission. Continue to avoid nephrotoxins. Recheck labs in the morning. (2) Weakness generalized Current Visit: Yes Status: Chronic Assessment and plan: Weakness is multifactorial. Could be due to physical deconditioning, chemotherapy, metastatic cancer, as well as dehydration and UTI. Patient reports she has felt this way for several months, worse since . PT evaluation has been completed, they have not identified any needs. Fall precautions and bed alarm. Consult pediatric social worker for discharge planning. (3) History of colon cancer, stage III Current Visit: Yes Status: Chronic Assessment and plan: History of stage III adenocarcinoma. Colon cancer. Patient was receiving chemotherapy, however she stopped taking it around due to side effects. She reported that she was having numbness and tingling in her feet that was unbearable. She states that chemotherapy just took a great toll on her and she was not willing to continue at this time. She will follow up with oncology. Patient was also evaluated by oncology in the hospital. They do not feel that the chemotherapy is contributory to her renal insufficiency. Primary oncology note patient has progressive disease with enlarging perineal nodularity and multiple mesenteric lymph nodes. She may also have endometrial carcinoma with endometrial thickening and vaginal bleeding. She will need to follow-up with OBIEE CONSULTANT for this. She denies vaginal bleeding at this time. (4) HTN (hypertension) Current Visit: Yes Status: Chronic Assessment and plan: Blood pressure has been well controlled. Continue home medications. Continue to monitor vital signs. Qualifiers: Hypertension type: essential hypertension Qualified Code(s): I10 - Essential (primary) hypertension (5) DVT prophylaxis Current Visit: Yes Status: Acute Assessment and plan: Patient has been up, ambulatory in the room. Heparin subcutaneous daily. - Time Spent With Patient less than 15 minutes - Subjective Interval history: Patient was seen and assessed at 0920 AM. She is sitting at bedside in her chair, eating her breakfast. Male visitor at bedside. She has a full liquid train is tolerating well. She denies headache, dizziness, blurred vision. She denies abdominal pain or chest pain. She denies nausea vomiting or diarrhea. She denies fever or chills. Patient is ready to have PT and OT and is agreeable to placement if necessary, male visitor at bedside states that he will take care of her home and does not want her to go to rehabilitation. - Constitutional Vitals: Temp Pulse Resp BP Pulse Ox 97.8 F 80 16 113/72 100 09/21/17 10:45 09/21/17 10:45 09/21/17 10:45 09/21/17 10:45 09/21/17 10:45 General appearance: Present: cooperative, A&O X 3, pleasant, answers questions appropriately - Head Head exam: Present: atraumatic, normal inspection, normocephalic - Eye Eye exam: Present: normal appearance, conjuntiva pink, sclera anicteric - Neck Neck exam general surgery: Present: supple, trachea midline. Absent: lymphadenopathy - Respiratory Respiratory exam: Present: CTAB. Absent: accessory muscle use, chest wall tenderness, rales, rhonchi, wheezes - Cardiovascular Cardiovascular exam: Present: RRR, +S1, +S2. Absent: diastolic murmur, gallop, rubs, systolic murmur - GI/Abdominal GI/Abdominal exam: Present: normal bowel sounds, soft. Absent: distended, hepatomegaly, tenderness - Extremities Exam Extremities exam: Present: warm, radial pulses palpable and symmetrical. Absent : calf tenderness, cyanotic, pedal edema, tenderness - Neurological Exam Neurological exam: Present: alert, oriented X3, no focal deficits. Absent: facial droop, speech deficit - Skin Skin exam: Present: dry, intact, normal color, warm. Absent: rash Internal Medicine: Result - Labs CBC & Chem 7: 09/20/17 04:26 09/21/17 08:03 Labs: BMP 09/20/17 09/21/17 04:26 08:03 Sodium 135 L 134 L Potassium 3.3 L 3.9 Chloride 107 103 Carbon Dioxide 12 L 19 BUN 62 H 54 H Creatinine 2.69 H 2.09 H Glucose 93 123 H Calcium 9.3 9.0 Consult Discharge Plan - Plan Referrals: Hilary Henriquez DO [Primary Care Provider] - 09/24/17 9:30 am Yvonne Burnett CNP [Partnered Physician] - 09/30/17 10:00 am
[2017-09-21] MEDS: 0.9 % Sodium Chloride 1,000 ML IVC SCH (17:53)
[2017-09-22 01:12] LABS: Creatinine,Urine 176 mg/dL
[2017-09-22 01:30] LABS: Sodium, Urine < 20.0 mEq/L
[2017-09-22] MEDS: *HR* Heparin 5,000 UNIT/ML VIAL SQ SCH ×2 (05:53→17:26)
[2017-09-22 07:02] LABS: Potassium 3.6 mEq/L (3.5-4.5)
[2017-09-22 07:22] LABS: Basophils # 0.1 K/mcL (0.0-0.2); Basophils % 0.5 %; Eosinophils # 0.1 K/mcL (0.0-0.6); Eosinophils % 0.9 %; Hematocrit 34.9 % (35.3-44.9); Hemoglobin 11.9 g/dL (11.5-15.4); Immature Granulocytes % 0.8 % (0-4); Lymphocytes # 1.3 K/mcL (0.6-4.6); Lymphocytes % 8.8 %; Mean Corpuscular HGB Conc 34.1 g/dL (31.6-35.5); Mean Corpuscular Hemoglobin 33.1 pg (28.0-33.3); Mean Corpuscular Volume 97.2 fL (83.0-100.0); Mean Platelet Volume 10.6 fL (9.4-12.4); Monocytes # 1.1 K/mcL (0.0-1.3); Monocytes % 7.5 %; Neutrophils # 11.9 K/mcL (1.6-8.9); Platelet Count 290 K/mcL (140-400); Red Blood Count 3.59 M/mcL (3.82-4.97); Red Cell Distribution Width 15.3 % (11.5-14.5); Segmented Neutrophils % 81.5 %
[2017-09-22] MEDS: cefTRIAXone 1,000 MG in Water for inj. (sterile) 10 ML IVP SCH (11:10)
[2017-09-22] MEDS: 0.9 % Sodium Chloride 1,000 ML IVC SCH (11:11)
--- NOTE | 2017-09-22 11:51 | Internal Med Progress Note ---
Date of Encounter: 09/22/17 Time of Encounter: 09:00 - Assessment and plan (1) SARA (acute kidney injury) Current Visit: Yes Status: Acute Assessment and plan: Renal function continues to improve. Serum creatinine is 1.84, GFR 27. Improved since admission. Serum creatinine was elevated on admission, GFR is decreased. Suspect this is secondary to weakness, patient unable to stay hydrated. Patient also reports nausea which is affecting her hydration status. Patient also being treated for UTI with Bactrim, this could be contributing to worsening renal function. I have given the pt Rocephin to assist with leukocytosis, urine did not trigger a culture. Patient has been seen by nephrology and had a retroperitoneal ultrasound. Continue to avoid nephrotoxins. Recheck labs in the morning. (2) Weakness generalized Current Visit: Yes Status: Chronic Assessment and plan: Weakness is multifactorial. Could be due to physical deconditioning, chemotherapy, metastatic cancer, as well as dehydration and UTI. Patient reports she has felt this way for several months, worse since . PT evaluation has been completed, they have not identified any needs. Fall precautions and bed alarm. Pt states that she is ready to go home and her boyfriend is able and willing to assist her with ADLs and ambulation (3) History of colon cancer, stage III Current Visit: Yes Status: Chronic Assessment and plan: History of stage III adenocarcinoma. Colon cancer. Patient was receiving chemotherapy, however she stopped taking it around due to side effects. She reported that she was having numbness and tingling in her feet that was unbearable. She states that chemotherapy just took a great toll on her and she was not willing to continue at this time. She will follow up with oncology. Patient was also evaluated by oncology in the hospital. They do not feel that the chemotherapy is contributory to her renal insufficiency. Primary oncology note patient has progressive disease with enlarging perineal nodularity and multiple mesenteric lymph nodes. She may also have endometrial carcinoma with endometrial thickening and vaginal bleeding. She will need to follow-up with RN [facility] for this. She denies vaginal bleeding at this time. (4) HTN (hypertension) Current Visit: Yes Status: Chronic Assessment and plan: Blood pressure has been well controlled, stable and WNL. Continue home medications. Continue to monitor vital signs. Qualifiers: Hypertension type: essential hypertension Qualified Code(s): I10 - Essential (primary) hypertension (5) DVT prophylaxis Current Visit: Yes Status: Acute Assessment and plan: Patient has been up, ambulatory in the room. Heparin subcutaneous daily. - Time Spent With Patient less than 15 minutes - Subjective Interval history: Patient was seen and assessed at 0900 AM. She is sitting at bedside in her chair, eating her breakfast. She has advanced to a regular diet and is tolerating well. She denies headache, dizziness, blurred vision. She denies abdominal pain or chest pain. She denies nausea vomiting or diarrhea. She denies fever or chills. Pt is aware of PT evaluation and states that she is ready to go home. Will reevaluate leukocytosis and renal function and reassess for discharge. - Constitutional Vitals: Temp Pulse Resp BP Pulse Ox 98.0 F 73 15 102/68 100 09/22/17 08:09 09/22/17 08:09 09/22/17 08:09 09/22/17 08:09 09/22/17 08:09 General appearance: Present: cooperative, A&O X 3, pleasant, no acute distress, answers questions appropriately - Head Head exam: Present: atraumatic, normal inspection, normocephalic - Eye Eye exam: Present: normal appearance, conjuntiva pink, sclera anicteric - Neck Neck exam general surgery: Present: supple, trachea midline. Absent: lymphadenopathy - Respiratory Respiratory exam: Present: CTAB. Absent: accessory muscle use, rales, rhonchi, wheezes - Cardiovascular Cardiovascular exam: Present: RRR, +S1, +S2. Absent: diastolic murmur, gallop, rubs, systolic murmur - GI/Abdominal GI/Abdominal exam: Present: normal bowel sounds, soft. Absent: distended, hepatomegaly, tenderness - Extremities Exam Extremities exam: Present: normal capillary refill, warm, radial pulses palpable and symmetrical. Absent: calf tenderness, cyanotic, pedal edema, tenderness - Neurological Exam Neurological exam: Present: alert, oriented X3, no focal deficits. Absent: altered, facial droop, speech deficit - Skin Skin exam: Present: dry, intact, normal color, warm. Absent: rash Internal Medicine: Result - Labs CBC & Chem 7: 09/22/17 06:42 09/22/17 06:42 Labs: Short CBC 09/22/17 Range/Units 06:42 WBC 14.6 H (4.3-11.1) K/mcL Hgb 11.9 (11.5-15.4) g/dL Hct 34.9 L (35.3-44.9) % Plt Count 290 (140-400) K/mcL Neutrophils # 11.9 H (1.6-8.9) K/mcL BMP 09/22/17 06:42 Sodium 131 L Potassium 3.6 Chloride 103 Carbon Dioxide 19 BUN 49 H Creatinine 1.84 H Glucose 101 H Calcium 9.0 Consult Discharge Plan - Plan Referrals: Hilary Henriquez DO [Primary Care Provider] - 09/24/17 9:30 am Yvonne Burnett CNP [Partnered Physician] - 09/30/17 10:00 am
--- NOTE | 2017-09-22 12:53 | Nephrology Progress Note ---
Date of Encounter: 09/22/17 Time of Encounter: 12:00 - Assessment and Plan (1) SARA (acute kidney injury) Current Visit: Yes Status: Acute Scr continues to improve at 1.84, GFR 27 UOP not impressive continue po fluids along with ivf Continue to avoid nephrotoxins if possible (2) Metabolic acidosis Current Visit: Yes Status: Acute Resolved (3) Hypokalemia Current Visit: Yes Status: Acute Resolved Subjective Interval history: Pt seen and examined sitting up in chair, feels better. at bedside. Objective - Vital Signs Vital signs: Vital Signs Temp Pulse Resp BP Pulse Ox 09/22/17 12:19 98.3 F 88 16 142/76 97 09/22/17 08:09 98.0 F 73 15 102/68 100 09/22/17 07:10 97 09/22/17 03:25 98.0 F 72 16 120/76 97 09/21/17 23:05 99.1 F 81 16 110/72 98 09/21/17 19:19 98.0 F 79 16 111/71 100 09/21/17 15:33 97.8 F 85 17 104/66 99 Intake and Output 09/21/17 09/22/17 09/22/17 23:59 07:59 15:59 Intake Total 240 / 240 1120 / 1120 Output Total 300 / 300 50 / 50 Balance -60 / -60 1070 / 1070 Intake: IV Fluids 1000 / 1000 0.9 % Sodium Chloride 1,000 ML 1000 / 1000 @ 60 mls/hr IVC .[id number] [facility] Rx #:[id number] Oral 240 / 240 120 / 120 Output: Urine 300 / 300 50 / 50 Other: Meal Breakfast Percent of Meal Consumed 90% Stool Size Small Stool Consistency liquid Stool Characteristics Normal for Patient Stool Color Brown Weight 80.694 kg Patient Weight 09/22/17 23:59 Weight 80.694 kg - General Appearance General appearance: Present: chronically ill (NAD) EENT: Present: ATNC, mucous membranes moist Neck: Present: no JVD, supple Respiratory: Present: clear Cardiology: Present: no edema, normal S1, normal S2 Gastrointestinal: Present: no tenderness, no guarding Additional Comments: +colostomy Integumentary: Present: warm and dry Neurologic: Present: no focal deficit Musculoskeletal: Present: no deformities Psychiatric: Present: mood/affect appropriate, cooperative - Lab 09/22/17 06:42 09/22/17 06:42 Most recent lab results Calcium 9.0 mg/dL (8.6-10.8) 09/22/17 06:42 Magnesium 2.0 mg/dL (1.6-2.6) 09/20/17 04:26 Urine Creatinine 176 mg/dL 09/22/17 00:45 Urine Sodium < 20.0 mEq/L 09/22/17 00:45 Consult Discharge Plan - Plan Referrals: Hilary Henriquez DO [Primary Care Provider] - 09/24/17 9:30 am Yvonne Burnett CNP [Partnered Physician] - 09/30/17 10:00 am
[2017-09-22 18:22] LABS: Basophils # 0.1 K/mcL (0.0-0.2); Basophils % 0.5 %; Eosinophils # 0.1 K/mcL (0.0-0.6); Eosinophils % 0.9 %; Hematocrit 42.3 % (35.3-44.9); Hemoglobin 13.9 g/dL (11.5-15.4); Immature Granulocytes % 0.7 % (0-4); Immature Platelets 4.1 % (1.1-6.1); Lymphocytes # 1.2 K/mcL (0.6-4.6); Lymphocytes % 7.3 %; Mean Corpuscular HGB Conc 32.9 g/dL (31.6-35.5); Mean Corpuscular Hemoglobin 32.4 pg (28.0-33.3); Mean Corpuscular Volume 98.6 fL (83.0-100.0); Mean Platelet Volume 10.7 fL (9.4-12.4); Monocytes % 6.3 %; Neutrophils # 13.6 K/mcL (1.6-8.9); Platelet Count 329 K/mcL (140-400); Red Blood Count 4.29 M/mcL (3.82-4.97); Red Cell Distribution Width 15.4 % (11.5-14.5); Segmented Neutrophils % 84.3 %
[2017-09-22 18:32] LABS: Potassium 3.8 mEq/L (3.5-4.5)
[2017-09-23] MEDS: *HR* Heparin 5,000 UNIT/ML VIAL SQ SCH (04:03)
[2017-09-23] MEDS: 0.9 % Sodium Chloride 1,000 ML IVC SCH (04:08)
[2017-09-23] MEDS ORDERED: CefTRIAXone 1,000 MG VIAL ONE (08:47)
[2017-09-23] MEDS: cefTRIAXone 1,000 MG in Water for inj. (sterile) 10 ML IVP SCH (08:52)
[2017-09-23 12:22] VITALS: BP 118/77
--- NOTE | 2017-09-23 12:50 | Nephrology Progress Note ---
Date of Encounter: 09/23/17 Time of Encounter: 12:15 - Assessment and Plan (1) SARA (acute kidney injury) Current Visit: Yes Status: Acute Scr continues to improve at 1.84, GFR 27 UOP not impressive continue po fluids along with ivf Continue to avoid nephrotoxins if possible (2) Metabolic acidosis Current Visit: Yes Status: Acute Resolved (3) Hypokalemia Current Visit: Yes Status: Acute Resolved Subjective Interval history: Pt seen and examined sitting up in chair, feels better. at bedside. Objective - Vital Signs Vital signs: Vital Signs Temp Pulse Resp BP Pulse Ox 09/23/17 12:22 97.6 F 85 18 118/77 100 09/23/17 07:09 97.5 F L 76 14 105/69 100 09/22/17 23:46 98.1 F 81 14 115/71 99 09/22/17 19:45 98.5 F 84 18 102/69 97 09/22/17 16:02 98.3 F 82 16 115/76 100 Intake and Output 09/22/17 09/23/17 09/23/17 23:59 07:59 15:59 Intake Total 700 / 700 1450 / 1450 120 / 120 Output Total 800 / 800 350 / 350 Balance -100 / -100 1100 / 1100 120 / 120 Intake: IV Fluids 1000 / 1000 0.9 % Sodium Chloride 1,000 ML 1000 / 1000 @ 60 mls/hr IVC .[id number] [facility] Rx #:[id number] Oral 700 / 700 200 / 200 120 / 120 Free Water 250 / 250 Output: Urine 200 / 200 200 / 200 Stool 600 / 600 150 / 150 Other: Meal Breakfast Percent of Meal Consumed 70% 65% Stool Size Moderate Moderate - Lab 09/22/17 18:15 09/22/17 18:15 Most recent lab results Calcium 10.0 mg/dL (8.6-10.8) 09/22/17 18:15 Magnesium 2.0 mg/dL (1.6-2.6) 09/20/17 04:26 Urine Creatinine 176 mg/dL 09/22/17 00:45 Urine Sodium < 20.0 mEq/L 09/22/17 00:45 Consult Discharge Plan - Plan Referrals: Hilary Henriquez DO [Primary Care Provider] - 09/24/17 9:30 am Yvonne Burnett CNP [Partnered Physician] - 09/30/17 10:00 am
--- NOTE | 2017-09-23 15:55 | Discharge Summary ---
Date of Encounter: 09/23/17 Time of Encounter: 08:20 - Discharge Diagnosis (1) SARA (acute kidney injury) Priority: Primary Status: Acute Comments: Renal function continues to improve. Serum creatinine is 1.84, GFR 27. Improved since admission. Serum creatinine was elevated on admission, GFR is decreased. Suspect this is secondary to weakness, patient unable to stay hydrated. Patient also reports nausea which affected her hydration status. Patient also being treated for UTI with Bactrim, this could be contributing to worsening renal function. I have given the pt Rocephin to assist with leukocytosis, urine did not trigger a culture. Patient has been seen by nephrology and had a retroperitoneal ultrasound. (2) Weakness generalized Priority: Primary Status: Chronic Comments: Weakness is multifactorial. Could be due to physical deconditioning, chemotherapy, metastatic cancer, as well as dehydration and UTI. Patient reports she has felt this way for several months, worse since . PT evaluation has been completed, they have not identified any needs. Pt states that she feels significantly better and wants to go home. Fall precautions and bed alarm. Pt states that she is ready to go home and her boyfriend is able and willing to assist her with ADLs and ambulation (3) History of colon cancer, stage III Priority: Secondary Status: Chronic Comments: History of stage III adenocarcinoma. Colon cancer. Patient was receiving chemotherapy, however she stopped taking it around due to side effects. She reported that she was having numbness and tingling in her feet that was unbearable. She states that chemotherapy just took a great toll on her and she was not willing to continue at this time. She will follow up with oncology. Patient was also evaluated by oncology in the hospital. They do not feel that the chemotherapy is contributory to her renal insufficiency. Primary oncology note patient has progressive disease with enlarging perineal nodularity and multiple mesenteric lymph nodes. She may also have endometrial carcinoma with endometrial thickening and vaginal bleeding. She will need to follow-up with [facility] for this. She denies vaginal bleeding at this time. Denies abdominal pain. (4) HTN (hypertension) Priority: Secondary Status: Chronic Comments: Blood pressure stable and within normal limits.-Well controlled in the hospital. Continue home medications. Qualifiers: Hypertension type: essential hypertension Qualified Code(s): I10 - Essential (primary) hypertension (5) DVT prophylaxis Priority: Secondary Status: Acute Comments: Patient has been ambulatory in the room, she has been up at bedside. She received heparin subcutaneous daily. - Discharge Medications Home Medications: No Known Home Drugs 09/19/17 [History] Allergies/Adverse Reactions: 3 Allergy/AdvReac Type Severity Reaction Status Date / Time No Known Allergies Allergy Verified 09/19/17 08:30 Date of admission: 09/19/17 13:13 Primary care physician: Reynaldo Mason Consults: 09/19/17 14:05 Consult to Welt Cutter [CONS] Routine Reason for SW Consult: discharge planning 09/19/17 14:19 Consult to Nephrology [CONS] Routine Consulting Provider: Kidney Eliz/RITESH/IRMA/ARIEL Reason for Consult: SARA Time Notified: 14:20 Call Completed: Yes 09/19/17 14:53 consult to cone tender [Consult to Nutrition] [CONS] Routine Comment: Consulting Provider: NUTRITION Reason for Dietary Consult: PO Supplementation 09/20/17 19:13 Consult to Occupational Therapy [CONS] Routine Comment: Evaluate, develop and implement POC Reason for Consult: evaluation Consult to Physical Therapy [CONS] Routine Comment: Evaluate, develop and implement POC Reason for Consult: evaluation Discharging clinician: Yanique Garcia Anticipated date of discharge: 09/23/17 - Patient Status Disposition: Home, Self-Care Condition: Good - Discharge Instructions Follow Up With: Hilary Henriquez DO [Primary Care Provider] - 09/24/17 9:30 am Yvonne Burnett CNP [Partnered Physician] - 09/30/17 10:00 am Additional Instructions: Take your medications as directed. Follow up with your PCP in the next week for a recheck. Follow up with oncology Continue to drink plenty of fluids and try to eat Return to your normal activities and diet as tolerated. - Diet and Activity Activity: increase activity as tolerated Diet: advance to your usual diet (the) Hospital course: Ms. Benito is a 67 year old female with past medical history of colon cancer, hypothyroid, anemia. Pt presented with weakness. She has been worked up for dehydration and treated with fluids and has been seen by nephrology for SARA. She has mild leukocytosis since late August. She has been getting chemotherapy, reactivity is the most likely cause. Vitals are stable and she is ready to be discharged. - - Time Spent with Patient Total time spent providing and/or coordinating discharge services: Less than 30 minutes - Constitutional Vitals: Temp Pulse Resp BP Pulse Ox 97.6 F 85 18 118/77 100 09/23/17 12:22 09/23/17 12:22 09/23/17 12:22 09/23/17 12:22 09/23/17 12:22 General appearance: Present: cooperative, A&O X 3, pleasant, no acute distress, answers questions appropriately - Head Head exam: Present: atraumatic, normal inspection, normocephalic - Eye Eye exam: Present: conjuntiva pink, sclera anicteric - Neck Neck exam general surgery: Present: supple, trachea midline. Absent: lymphadenopathy, normal inspection, tenderness - Respiratory Respiratory exam: Present: CTAB. Absent: accessory muscle use, rales, rhonchi, wheezes - Cardiovascular Cardiovascular exam: Present: RRR, +S1, +S2. Absent: diastolic murmur, gallop, rubs, systolic murmur - GI/Abdominal GI/Abdominal exam: Present: normal bowel sounds, soft, no peritoneal signs. Absent: distended, hepatomegaly, tenderness - Extremities Exam Extremities exam: Present: warm, radial pulses palpable and symmetrical. Absent : calf tenderness, cyanotic, joint swelling, normal capillary refill, pedal edema - Neurological Exam Neurological exam: Present: alert, oriented X3, no focal deficits. Absent: facial droop, speech deficit - Skin Skin exam: Present: dry, intact, normal color. Absent: rash, warm
== END 2017-09-23 17:27 | disposition home or self-care (01) ==
LOC: 3BNU 08:24 → EMEROO 08:24 → 3BNU 14:09
PROVIDERS: ADMIT Hospitalist; ATTEND Registered Nurse

== ENCOUNTER 2017-09-28 10:44 | Observation (INO) ==
[2017-09-28] MEDS ORDERED: 0.9 % Sodium Chloride 1,000 ML IVC ONE (10:59)
--- NOTE | 2017-09-28 11:12 | Emergency Department Note ---
Disposition Clinical Impression: Enteritis, SARA (acute kidney injury), Metabolic acidosis, Transaminitis Sepsis Qualifiers: Sepsis type: sepsis due to unspecified organism Qualified Code(s): A41.9 - Sepsis, unspecified organism Nausea & vomiting Qualifiers: Vomiting type: unspecified Vomiting Intractability: non-intractable Qualified Code(s): R11.2 - Nausea with vomiting, unspecified Disposition: Admitted As Inpatient Condition: Undetermined Time of Disposition: 13:49 Weakness HPI - General Chief complaint: ED Weakness Stated complaint: weakness, tired Time Seen by Provider: 09/28/17 10:58 Source: patient Mode of arrival: wheelchair Limitations: no limitations Nursing Notes Reviewed: Yes Vital Signs Reviewed: Yes - History of Present Illness HPI Narrative: 67-year-old female with history of metastatic colon cancer arrives to [facility] emergency department with concern for generalized weakness, nausea, vomiting. The patient was recently discharged from the hospital for a UTI, sara and generalized weakness. The patient recently stopped all treatments for her colon cancer. The patient over the past few days stating that she has become increasingly weak with this nausea and vomiting. Denies any specific complaints other than a small amount of abdominal pain. She denies any other time including alteration in mentation, nuchal rgidity. Pt Subjective Complaint: generalized weakness/fatigue Onset (ago): day(s) (3) Duration: constant Location: generalized Migration: none Pain Severity: none Pain Scale: 0 Improves with: none Worsens with: none Associated symptoms: Reports: nausea/vomiting, myalgias - Related Data Home Medications Medication Instructions Recorded Confirmed No Known Home Drugs 09/19/17 09/28/17 Allergies Allergy/AdvReac Type Severity Reaction Status Date / Time No Known Allergies Allergy Verified 09/28/17 10:47 All systems ED: reviewed and negative except as stated. Constitutional: Reports: weakness. Denies: fever, chills Eyes: Denies: eye pain ENT ED: Denies: dysphagia Cardiovascular: Denies: chest pain, dyspnea on exertion Respiratory: Reports: cough. Denies: dyspnea, wheezes Gastrointestinal: Reports: abdominal pain, nausea, vomiting. Denies: diarrhea, constipation, hematemesis, melena, hematochezia Genitourinary: Denies: urgency, dysuria Musculoskeletal: Reports: myalgia. Denies: back pain, neck pain Integumentary: Denies: rash Neurological: Reports: weakness. Denies: headache, confusion Past Medical History - Past Medical History Attestation: Yes The following information was validated with the patient. Source: patient Medical history: Reports: cancer, hypertension, other Surgical history: Reports: cholecystectomy Psychiatric history: Reports: no psych history - Social History Smoking Status: Never smoker Smokeless Tobacco Status: No Alcohol use: Reports: none Drug use: Reports: none Physical Exam - General Limitations: no limitations General appearance: alert, in no apparent distress - Head Head exam: atraumatic, normocephalic, normal inspection - Eye Eye exam: Present: normal appearance, PERRL, EOMI - ENT ENT exam: normal exam, normal oropharynx, mucous membranes moist - Neck Neck exam: Present: normal inspection, full ROM, trachea midline - Chest Chest inspection: Present: normal inspection, symmetric chest wall rise - Respiratory Respiratory exam: Present: other (Coarse breath sounds bilaterally) - Cardiovascular Cardiovascular exam: Present: normal rhythm, tachycardia, normal heart sounds - Abdominal Exam Abdominal exam: Present: soft, tenderness (diffuse, ), other (Colostomy intact with watery stool). Absent: distention, guarding, rebound, rigidity - Extremities Exam Extremities exam: Present: normal inspection, full ROM. Absent: tenderness, pedal edema - Neurological Exam Neurological exam: Present: alert, oriented X3 - Expanded Neurological Exam Coma Scale Eye Opening: Spontaneous Coma Scale Motor Response: Obeys Commands Coma Scale Verbal Response: Oriented Coma Scale Total: 15 Course Vital Signs Temperature 97.7 F 09/28/17 10:47 Pulse Rate 101 09/28/17 10:47 Respiratory Rate 20 09/28/17 10:47 Blood Pressure 88/62 09/28/17 10:47 O2 Sat by Pulse Oximetry 99 09/28/17 10:47 Temperature 97.7 F 09/28/17 10:47 Pulse Rate 85 09/28/17 14:21 Respiratory Rate 16 09/28/17 14:21 Blood Pressure 108/59 09/28/17 14:21 O2 Sat by Pulse Oximetry 100 09/28/17 14:21 Oxygen Delivery Oxygen Delivery Room Air Weakness - MDM Narrative Medical decision making narrative: Workup in the emergency department industries findings consistent with an enteritis. The patient was noted initially hypertensive and slightly tachycardic. She was given 1 L fluid upon arrival. Her heart rate is decreased into the low 90s and her blood pressure has increased to her baseline according to previous records. The patient is resting comfortably at this time. Her lactic acid is negative. The patient was started on ciprofloxacin and Flagyl for concern for enteritis. The patient was made aware and agrees to plan. It was discussed with the patient that she would be admitted. The patient will be admitted to the hospitalist service, accepted by Dr. Peters. - Medical Records Medical records reviewed: Yes I reviewed the patient's medical records. - Lab Data Lab results reviewed: Yes I reviewed the patient's lab results. Result diagrams: 09/28/17 11:39 09/28/17 11:39 Lab Results 09/28/17 09/28/17 09/28/17 Range/Units 11:39 11:39 11:39 WBC 14.3 H (4.3-11.1) K/mcL RBC 4.32 (3.82-4.97) M/mcL Hgb 14.1 (11.5-15.4) g/dL Hct 41.3 (35.3-44.9) % MCV 95.6 (83.0-100.0) fL MCH 32.6 (28.0-33.3) pg MCHC 34.1 (31.6-35.5) g/dL RDW 15.0 H (11.5-14.5) % Plt Count 384 (140-400) K/mcL MPV 10.2 (9.4-12.4) fL Immature Gran % 0.6 (0-4) % Seg Neutrophils % 87.3 % Lymphocytes % 5.6 % Monocytes % 5.7 % Eosinophils % 0.2 % Basophils % 0.6 % Neutrophils # 12.5 H (1.6-8.9) K/mcL Lymphocytes # 0.8 (0.6-4.6) K/mcL Monocytes # 0.8 (0.0-1.3) K/mcL Eosinophils # 0.0 (0.0-0.6) K/mcL Basophils # 0.1 (0.0-0.2) K/mcL Immature Plt Fraction 3.5 (1.1-6.1) % Sodium 131 L (136-145) mEq/L Potassium 4.0 (3.5-4.5) mEq/L Chloride 100 (98-109) mEq/L Carbon Dioxide 18 L (19-29) mEq/L BUN 59 H (7-20) mg/dL Creatinine 3.03 H (0.57-1.11) mg/dL Est GFR ( Amer) 19 L (> 60) Est GFR (Non-Af Amer) 15 L (> 60) BUN/Creatinine Ratio 19 (6-26) Glucose 113 H (70-99) mg/dL Calculated Osmolality 289 (280-300) Lactic Acid (0.5-2.2) mmol/L Calcium 10.7 (8.6-10.8) mg/dL Total Bilirubin 1.0 (0.2-1.2) mg/dL AST 138 H (5-34) Units/L ALT 230 H (0-55) Units/L Alkaline Phosphatase 176 H (38-126) Units/L Troponin I 0.01 (0-0.03) ng/mL Serum Total Protein 8.7 H (6.0-8.3) g/dL Albumin 3.1 L (3.5-5.0) g/dL Globulin 5.6 H (2.4-3.5) g/dL Albumin/Globulin Ratio 0.6 L (1.1-2.2) Urine Color (Yellow) Urine Clarity (Clear) Urine pH (5.0-8.0) pH Units Ur Specific [place] (1.010-1.025) Urine Protein (Neg-Trace) mg/dL Urine Glucose (UA) (Normal) mg/dL Urine Ketones (Negative) mg/dL Urine Blood (Negative) Urine Nitrite (Negative) Urine Bilirubin (Negative) Urine Urobilinogen (Normal) mg/dL Ur Leukocyte Esterase (Negative) Urine Microscopic RBC (0-3) per hpf Urine Microscopic WBC (0-3) per hpf Ur Squamous Epith Cells (None-Few) per lpf Ur Transition Epith Cell (None-Few) per hpf Amorphous Sediment (Few) Urine Bacteria (None-Few) per hpf Hyaline Casts (None-Few) per lpf Granular Casts (None Seen) per lpf Urine Yeast Ur Culture Indicated? (NO) 09/28/17 09/28/17 Range/Units 11:39 13:04 WBC (4.3-11.1) K/mcL RBC (3.82-4.97) M/mcL Hgb (11.5-15.4) g/dL Hct (35.3-44.9) % MCV (83.0-100.0) fL MCH (28.0-33.3) pg MCHC (31.6-35.5) g/dL RDW (11.5-14.5) % Plt Count (140-400) K/mcL MPV (9.4-12.4) fL Immature Gran % (0-4) % Seg Neutrophils % % Lymphocytes % % Monocytes % % Eosinophils % % Basophils % % Neutrophils # (1.6-8.9) K/mcL Lymphocytes # (0.6-4.6) K/mcL Monocytes # (0.0-1.3) K/mcL Eosinophils # (0.0-0.6) K/mcL Basophils # (0.0-0.2) K/mcL Immature Plt Fraction (1.1-6.1) % Sodium (136-145) mEq/L Potassium (3.5-4.5) mEq/L Chloride (98-109) mEq/L Carbon Dioxide (19-29) mEq/L BUN (7-20) mg/dL Creatinine (0.57-1.11) mg/dL Est GFR ( Amer) (> 60) Est GFR (Non-Af Amer) (> 60) BUN/Creatinine Ratio (6-26) Glucose (70-99) mg/dL Calculated Osmolality (280-300) Lactic Acid 1.4 (0.5-2.2) mmol/L Calcium (8.6-10.8) mg/dL Total Bilirubin (0.2-1.2) mg/dL AST (5-34) Units/L ALT (0-55) Units/L Alkaline Phosphatase (38-126) Units/L Troponin I (0-0.03) ng/mL Serum Total Protein (6.0-8.3) g/dL Albumin (3.5-5.0) g/dL Globulin (2.4-3.5) g/dL Albumin/Globulin Ratio (1.1-2.2) Urine Color Dark Yellow (Yellow) Urine Clarity Cloudy A (Clear) Urine pH 5.5 (5.0-8.0) pH Units Ur Specific [place] 1.027 H (1.010-1.025) Urine Protein 30 H (Neg-Trace) mg/dL Urine Glucose (UA) Normal (Normal) mg/dL Urine Ketones Negative (Negative) mg/dL Urine Blood Negative (Negative) Urine Nitrite Negative (Negative) Urine Bilirubin Small H (Negative) Urine Urobilinogen Normal (Normal) mg/dL Ur Leukocyte Esterase Negative (Negative) Urine Microscopic RBC 0-3 (0-3) per hpf Urine Microscopic WBC 5-15 H (0-3) per hpf Ur Squamous Epith Cells Many H (None-Few) per lpf Ur Transition Epith Cell Few (None-Few) per hpf Amorphous Sediment Few (Few) Urine Bacteria None Seen (None-Few) per hpf Hyaline Casts Few (None-Few) per lpf Granular Casts Moderate H (None Seen) per lpf Urine Yeast Test Not Performed Ur Culture Indicated? NO (NO) - Radiology Data Radiology results reviewed: Yes I reviewed the patient's radiology results. - EKG Data EKG attestation: Yes I reviewed and interpreted this EKG. EKG results narrative: Heart rate 93 bpm. PA interval 162 ms. QTC 399 ms. Normal sinus rhythm. No ST elevation or ST depression. Similar in morphology from 09/19/2017 Attestation Statement - Attestation Attestation: I examined this patient and my medical decision-making was reviewed with the Resident Physician, Dr. Morin. I agree with the documented findings, disposition and treatment plan as described except to the extent set forth below. Patient is a 67-year-old white female who presents to the emergency department with complaints of generalized weakness over the past 3 days associated with nausea and vomiting. Patient has a history of stage III colon cancer and is recently stopped all treatments. Patient denies any fevers or chills, no bright red blood per rectum, no bowel changes, no chest pain pressure or heaviness, no cough sore throat or ear upper respiratory symptoms, no urinary symptoms. Patient was treated recently for UTI but denies any current symptoms. I agree patient's physical exam findings as documented. On arrival patient was hypotensive and sepsis protocol was initiated. Patient received IV fluid bolus labs including cultures, urinalysis and CT abdomen and pelvis. Patient with worsening acute on chronic kidney injury likely prerenal related to the nausea vomiting. Hydration was initiated on arrival. Patient also with elevated LFTs which is new for her. CT abdomen and pelvis with consistent with findings of enteritis. We will cover patient with antibiotics at this time and continue fluid resuscitation. Vital signs are improved following IV fluid boluses and patient will be admitted for further evaluation and management. Case was discussed with the hospitalist who accepts the patient for admission.
[2017-09-28 11:48] LABS: Basophils # 0.1 K/mcL (0.0-0.2); Basophils % 0.6 %; Eosinophils % 0.2 %; Hematocrit 41.3 % (35.3-44.9); Hemoglobin 14.1 g/dL (11.5-15.4); Immature Granulocytes % 0.6 % (0-4); Immature Platelets 3.5 % (1.1-6.1); Lymphocytes # 0.8 K/mcL (0.6-4.6); Lymphocytes % 5.6 %; Mean Corpuscular HGB Conc 34.1 g/dL (31.6-35.5); Mean Corpuscular Hemoglobin 32.6 pg (28.0-33.3); Mean Corpuscular Volume 95.6 fL (83.0-100.0); Mean Platelet Volume 10.2 fL (9.4-12.4); Monocytes # 0.8 K/mcL (0.0-1.3); Monocytes % 5.7 %; Neutrophils # 12.5 K/mcL (1.6-8.9); Platelet Count 384 K/mcL (140-400); Red Blood Count 4.32 M/mcL (3.82-4.97); Segmented Neutrophils % 87.3 %
[2017-09-28 12:02] LABS: Albumin 3.1 g/dL (3.5-5.0); Albumin/Globulin Ratio 0.6 (1.1-2.2); Calcium 10.7 mg/dL (8.6-10.8); Globulin 5.6 g/dL (2.4-3.5); Total Protein 8.7 g/dL (6.0-8.3)
[2017-09-28 13:11] LABS: Bilirubin,Urine Small (Negative); Blood,Urine Negative (Negative); Clarity,Urine Cloudy (Clear); Color,Urine Dark Yellow (Yellow); Glucose,Urine (UA) Normal (Normal); Ketones,Urine Negative (Negative); Leukocyte Esterase,Urine Negative (Negative); Nitrite,Urine Negative (Negative); PH,Urine 5.5 pH Units (5.0-8.0); Protein,Urine 30 mg/dL (Neg-Trace); Specific Gravity,Urine 1.027 (1.010-1.025); Urobilinogen,Urine Normal (Normal)
[2017-09-28 13:14] LABS: Bacteria,Urine None Seen per hpf (None-Few); Squamous Epithelial Cell,Urine Many per lpf (None-Few)
[2017-09-28 13:25] LABS: Granular Casts,Urine Moderate per lpf (None Seen); Hyaline Casts,Urine Few per lpf (None-Few); RBC,Urine 0-3 per hpf (0-3)
[2017-09-28 13:26] LABS: Amorphous Sediment,Urine Few (Few); Transitional Epi Cells,Urine Few per hpf (None-Few)
[2017-09-28] MEDS ORDERED: MetroNIDAZOLE 500 MG/100 ML 500 MG/100 ML BAG IVPB ONE (13:43)
[2017-09-28] MEDS ORDERED: Ondansetron 4 MG/2 ML VIAL IVP PRN (14:48)
[2017-09-28] MEDS ORDERED: Naloxone 0.4 MG/ML INJ IVP PRN (14:48)
[2017-09-28] MEDS ORDERED: Acetaminophen 325 MG TABLET PO PRN (14:48)
[2017-09-28] MEDS ORDERED: *HR* HYDROcodone/Acet 5/325 mg TABLET PO PRN (14:48)
--- NOTE | 2017-09-28 15:07 | Internal Med History&Physical ---
<Riky Barnes - Last Filed: 09/28/17 15:53> Date of Encounter: 09/28/17 Time of Encounter: 14:00 Assessment and Plan (1) Enteritis Current visit: Yes Status: Acute Acute enteritis. CT of the abdomen/pelvis today without contrast shows segment of central small bowel wall thickening and adjacent mesenteric edema. Correlation for enteritis with infectious, inflammatory, or ischemic etiologies is recommended. IVPB ciprofloxacin 400 mg daily (renal dosing) and IVPB Flagyl 500 mg Q8 for infection coverage. Monitor pt. and f/u labs. Clear liquid diet to be advanced as tolerated. Pt. discusses w/Dr. Peters who is in agreement w/ plan of care. Pt. is at high risk for further morbidity d/t current immunocompromised status, hx of metastatic cancer, current sx, dx of enteritis, and hx. Inpatient. (2) Weakness generalized Current visit: Yes Status: Chronic Acute generalized weakness and fatigue that pt. states has been present since . Weakness may be d/t previous cancer tx which she stopped taking on September 02 versus infection etiology r/t enteritis. Pt. has metastatic colon cancer. Pt. has had chronic leukocytosis since 09/11/17 but current 14.3 WBC is lowest of this time period. Falls/safety precautions. PT/OT consults ordered to assess pts. ambulation strength, stability, and safety. (3) Nausea Current visit: Yes Status: Acute Acute nausea on admission that pt. reports has been present since . Denies vomiting. IVP Zofran 4 mg Q6 PRN. IVP Protonix 40 mg daily. Monitor I&O. Clear liquid diet with advance as tolerated. Pt. denies need for PO supplementation when discussed. (4) Leukocytosis Current visit: Yes Status: Acute Acute leukocytosis w/WBC of 14.3 on admission. Pt. has had chronic leukocytosis since 09/11/17 and previous admission which may be d/t cancer tx which pt. reports she has now stopped. Today's WBC is the lowest level in this time frame. Pt. does not currently meet sepsis criteria. IVPB ciprofloxacin 400 mg daily and Flagyl 500 mg every 8 for infection coverage. Blood culture ordered. Will adjust abx coverage based on culture results. Monitor f/u labs. Qualifiers: Leukocytosis type: unspecified Qualified Code(s): D72.829 - Elevated white blood cell count, unspecified (5) SARA (acute kidney injury) Current visit: Yes Status: Acute SARA most likely r/t pts. current reduced PO intake of food and liquid d/t nausea. IV 0.9 NS @ 100 mL/HR for fluid resuscitation. Monitor I&O and daily weight. Monitor pt. and f/u labs. Will avoid nephrotoxins. (6) Hyponatremia Current visit: Yes Status: Acute Acute hyponatremia with sodium level of 131 on admission. Pt. receiving 0.9 NS IV fluids @ 100 mL/HR. Will monitor f/u labs. (7) DVT prophylaxis Current visit: Yes Status: Acute Heparin 5,000 units SQ Q12 for DVT prophylaxis. Monitor pt. for signs of bleeding. Internal Medicine - H&P: HPI Chief complaint: Weakness/Fatigue/Nausea Admitted From: Emergency Dept Plans for Post Hospital Care: Home History of present illness: Ms. Benito is a 67 year old female with medical hx of metastatic colon cancer and HTN presents from the ED with chief complaint of weakness, fatigue, nausea, and reduced appetite since Thanksgiving. Pt. reports she was admitted several weeks ago w/similar sx and was discharged w/o abx. Pt. states that she has not eaten much since her discharge but has tried to keep drinking fluids. Pt. reports hx of metastatic colon cancer and that she has stopped taking tx voluntarily because she no longer feels that they are going to work. Pt. denies fever, chills, vomiting, changes in vision, unusual bleeding, chest pain, palpitations , abdominal pain, diarrhea, constipation, dizziness, lightheadedness, pre- syncope, or syncope. Past Med Surg Social Fam HX - Past Medical History Source: patient, old records reviewed Medical history: cancer (Metastatic colon cancer), hypertension, other Psychiatric history: no psych history - Past Surgical History Surgical History: cholecystectomy, other (Tonsillectomy) - Social History Smoking Status: Never smoker Smokeless Tobacco Status: No Alcohol use: none Drug use: none Current living situation: Home, With Family Activity Level: Independent ambulation Recent Out of Country Travel Within the Last 8 Weeks: No Exposure or Possible Exposure to Illness During Travel: No - Family History Mother Race: Family Member Ethnicity: Non- Living Status: Age at : 74 Cause of : Bone cancer Hx Family Cancer: Yes (Bone) Father Race: Family Member Ethnicity: Non- Living Status: Age at : 75 Cause of : Prostate cancer Hx Family Cancer: Yes (Prostate) Brother Race: Family Member Ethnicity: Non- Living Status: Still Living Hx Family Medical Disorders: No Internal Medicine - H&P: Meds No Known Home Drugs 09/19/17 [History] 3 Allergy/AdvReac Type Severity Reaction Status Date / Time No Known Allergies Allergy Verified 09/28/17 10:47 All Systems PM: A 10-system review of systems was performed and is negative for pertinent findings except as documented above in the HPI. - Constitutional Constitutional: as per HPI, anorexia, fatigue, weakness, no chills, no fever(s) , no night sweats - EENT Eyes: no change in vision, no discharge, no pain, no photophobia Ears: no ear discharge, no ear pain, no tinnitus Nose, mouth and throat: no dysphagia, no nasal discharge, no neck pain, no sore throat - Breasts Breasts: as per HPI - Cardiovascular Cardiovascular ROS IM: no chest pain, no diaphoresis, no dyspnea, no lightheadedness, no palpitations, no syncope - Respiratory Respiratory: no cough, no dyspnea, no wheezing, no excessive phlegm production - Gastrointestinal Gastrointestinal: as per HPI, nausea, no abdominal pain, no diarrhea, no hematemesis, no hematochezia, no melena, no vomiting - Genitourinary Genitourinary: no change in urinary stream, no dysuria, no flank pain, no hematuria Menstruation: as per HPI - Musculoskeletal Musculoskeletal ROS IM: no numbness, no tingling - Integumentary Integumentary IM: no rash, no unusual bruising - Neurological Neurological ROS: no confusion, no convulsions, no focal weakness, no numbness, no tingling, no tremor(s) - Psychiatric Psychiatric: as per HPI, anxiety (Related to current health), depression ( Related to current health) - Endocrine Endocrine IM: as per HPI - Hematologic/Lymphatic Hematologic/Lymphatic: no easy bruising - Allergic/Immunologic Allergic/Immunologic: as per HPI - Constitutional Vitals: Temp Pulse Resp BP Pulse Ox 97.7 F 85 16 108/59 100 09/28/17 10:47 09/28/17 14:21 09/28/17 14:21 09/28/17 14:21 09/28/17 14:21 General appearance: Present: cooperative, A&O X 3, pleasant, no acute distress, obese, answers questions appropriately - Head Head exam: Present: atraumatic, normal inspection, normocephalic - Eye Eye exam: Present: PERRL, conjuntiva pink, sclera anicteric Pupils: Present: PERRL - ENT ENT exam: Present: normal exam - Neck Neck exam general surgery: Present: normal inspection, supple, trachea midline. Absent: lymphadenopathy - Respiratory Respiratory exam: Present: CTAB. Absent: accessory muscle use, rales, rhonchi, wheezes - Cardiovascular Cardiovascular exam: Present: RRR, +S1, +S2. Absent: diastolic murmur, gallop, rubs, systolic murmur - GI/Abdominal GI/Abdominal exam: Present: normal bowel sounds, soft, no peritoneal signs. Absent: distended, tenderness - Rectal Rectal exam: Present: deferred - Additional comments: exam deferred. - Extremities Exam Extremities exam: Present: warm, radial pulses palpable and symmetrical. Absent : calf tenderness, cyanotic, pedal edema - Back Exam Back exam: Present: normal inspection - Neurological Exam Neurological exam: Present: CN II-XII intact, oriented X3, no focal deficits. Absent: pronater drift, facial droop, speech deficit - Psychiatric Psychiatric exam: Present: flat affect - Skin Skin exam: Present: dry, intact Internal Med - H&P Results - Labs CBC & Chem 7: 09/28/17 11:39 09/28/17 11:39 Labs: Short CBC 09/28/17 Range/Units 11:39 WBC 14.3 H (4.3-11.1) K/mcL Hgb 14.1 (11.5-15.4) g/dL Hct 41.3 (35.3-44.9) % Plt Count 384 (140-400) K/mcL Neutrophils # 12.5 H (1.6-8.9) K/mcL BMP 09/28/17 11:39 Sodium 131 L Potassium 4.0 Chloride 100 Carbon Dioxide 18 L BUN 59 H Creatinine 3.03 H Glucose 113 H Calcium 10.7 Cardiac Enzymes 09/28/17 Range/Units 11:39 Troponin I 0.01 (0-0.03) ng/mL Liver Function 09/28/17 Range/Units 11:39 Total Bilirubin 1.0 (0.2-1.2) mg/dL AST 138 H (5-34) Units/L ALT 230 H (0-55) Units/L Alkaline Phosphatase 176 H (38-126) Units/L Albumin 3.1 L (3.5-5.0) g/dL Urine 09/28/17 Range/Units 13:04 Urine Color Dark Yellow (Yellow) Urine Clarity Cloudy A (Clear) Urine pH 5.5 (5.0-8.0) pH Units Ur Specific [place] 1.027 H (1.010-1.025) Urine Protein 30 H (Neg-Trace) mg/dL Urine Glucose (UA) Normal (Normal) mg/dL - EKG Data EKG shows normal: sinus rhythm Rate: normal - EKG Data Prior EKG available for review: yes EKG comments: 09/28/17 15:33 EKG dated 09/19/17 shows sinus tachycardia and possible inferior myocardial infarction of indeterminate age. EKG dated 09/28/17 shows sinus rhythm and normal ECG. - Impressions ITS Impressions Abdomen/Pelvis CT 09/28/17 11:04 IMPRESSION: Findings of metastatic disease are overall unchanged with the exception of decreased size of right cardiophrenic lymph node. Segment of central small bowel with wall thickening and adjacent mesenteric edema. Correlation for enteritis with infectious, inflammatory or ischemic etiologies is recommended. D/ / Maria A Corral Cha, MD / Maria A Corral Cha, MD Interpreting Provider: Maria A Corral Cha, MD Chest X-Ray 09/28/17 11:04 IMPRESSION: Clear lungs. Mild bullous changes. No acute abnormality. No significant change from the prior study. D/ / Anupam Casillas MD / Anupam Casillas MD Interpreting Provider: Anupam Casillas MD - Diagnostic Studies Chest x-ray Additional comments: Impressions Chest X-Ray 09/28/17 11:04 IMPRESSION: Clear lungs. Mild bullous changes. No acute abnormality. No significant change from the prior study. D/ / Anupam Casillas MD / Anpuam Casillas MD Interpreting Provider: Anupam Casillas MD CT scan - abdomen Additional comments: Impressions Abdomen/Pelvis CT 09/28/17 11:04 IMPRESSION: Findings of metastatic disease are overall unchanged with the exception of decreased size of right cardiophrenic lymph node. Segment of central small bowel with wall thickening and adjacent mesenteric edema. Correlation for enteritis with infectious, inflammatory or ischemic etiologies is recommended. D/ / Maria A Corral Cha, MD / Maria A Corral Cha, MD Interpreting Provider: Maria A Corral Cha, MD <Wyatt Peters - Last Filed: 09/28/17 16:10> Date of Encounter: 09/28/17 Internal Medicine - H&P: HPI History of present illness: Ms. Benito is a 67 year old female All Systems PM: A 10-system review of systems was performed and is negative for pertinent findings except as documented above in the HPI. - Constitutional Vitals: Temp Pulse Resp BP Pulse Ox 97.7 F 85 16 108/59 100 09/28/17 10:47 09/28/17 14:21 09/28/17 14:21 09/28/17 14:21 09/28/17 14:21 Internal Med - H&P Results - Labs CBC & Chem 7: 09/28/17 11:39 09/28/17 11:39 - Attending Attestation I examined this patient and my medical decision-making was reviewed with the Resident Physician. I agree with the documented findings, disposition and treatment plan as described except to the extent set forth below.
[2017-09-28] MEDS: Pantoprazole 40 MG VIAL IVP SCH (18:37)
[2017-09-28] MEDS: MetroNIDAZOLE 500 MG/100 ML 500 MG/100 ML BAG IVPB SCH (18:37)
[2017-09-28] MEDS: 0.9 % Sodium Chloride 1,000 ML IVC SCH (18:44)
[2017-09-28] MEDS: *HR* Heparin 5,000 UNIT/ML VIAL SQ SCH ×2 (18:44→18:45)
[2017-09-29] MEDS: MetroNIDAZOLE 500 MG/100 ML 500 MG/100 ML BAG IVPB SCH ×3 (00:55→16:52)
[2017-09-29 04:57] LABS: Basophils # 0.1 K/mcL (0.0-0.2); Basophils % 0.8 %; Eosinophils # 0.1 K/mcL (0.0-0.6); Eosinophils % 1.1 %; Hematocrit 34.5 % (35.3-44.9); Immature Granulocytes % 0.7 % (0-4); Lymphocytes # 1.1 K/mcL (0.6-4.6); Lymphocytes % 11.8 %; Mean Corpuscular HGB Conc 32.5 g/dL (31.6-35.5); Mean Corpuscular Hemoglobin 31.5 pg (28.0-33.3); Mean Corpuscular Volume 97.2 fL (83.0-100.0); Mean Platelet Volume 10.4 fL (9.4-12.4); Monocytes # 0.9 K/mcL (0.0-1.3); Monocytes % 9.8 %; Neutrophils # 6.8 K/mcL (1.6-8.9); Platelet Count 276 K/mcL (140-400); Red Blood Count 3.55 M/mcL (3.82-4.97); Red Cell Distribution Width 14.9 % (11.5-14.5); Segmented Neutrophils % 75.8 %
[2017-09-29 05:07] LABS: Hemoglobin A1C 5.1 %
[2017-09-29 05:09] LABS: Albumin/Globulin Ratio 0.5 (1.1-2.2); Bilirubin,Total 0.9 mg/dL (0.2-1.2); Calcium 9.3 mg/dL (8.6-10.8); Chol/HDL Ratio 3.5 (0-4.9); Globulin 4.2 g/dL (2.4-3.5); Magnesium 1.8 mg/dL (1.6-2.6); Potassium 3.9 mEq/L (3.5-4.5)
[2017-09-29 05:10] LABS: Hemoglobin 11.2 g/dL (11.5-15.4)
[2017-09-29 05:16] LABS: Albumin 2.3 g/dL (3.5-5.0); Total Protein 6.5 g/dL (6.0-8.3)
[2017-09-29] MEDS: 0.9 % Sodium Chloride 1,000 ML IVC SCH (05:57)
[2017-09-29] MEDS: *HR* Heparin 5,000 UNIT/ML VIAL SQ SCH ×2 (05:57→16:55)
[2017-09-29] MEDS: Pantoprazole 40 MG VIAL IVP SCH (08:39)
[2017-09-29] MEDS: Sodium Bicarbonate 100 MEQ in D5% in Water 1,000 ML IVC SCH (11:05)
--- NOTE | 2017-09-29 15:23 | Internal Med Progress Note ---
Date of Encounter: 09/29/17 Time of Encounter: 13:40 - Assessment and plan (1) Enteritis Current Visit: Yes Status: Acute Assessment and plan: clinically improving continue cipro and flagyl advance to full liquid diet and further advancement as tolerated (2) Metabolic acidosis Current Visit: Yes Status: Acute Assessment and plan: likely secondary to renal insufficiency and GI loses bicarb deficit: 5amp started bicarb drip (2amp in D5W at 100cc/hr x 2 bags) will closely monitor (3) SARA (acute kidney injury) Current Visit: Yes Status: Acute Assessment and plan: likely secondary to poor PO intake prior to hospitalization renal function improved from previous day continue IVF monitor renal function closely avoid nephrotoxic agents (4) DVT prophylaxis Current Visit: No Status: Acute Assessment and plan: Heparin SQ (5) Hyponatremia Current Visit: Yes Status: Acute Assessment and plan: Improved from previous day will continue to monitor (6) Metastatic cancer Current Visit: No Status: Chronic (7) Weakness generalized Current Visit: Yes Status: Chronic Assessment and plan: will obtain PT/OT evaluation - Subjective Interval history: Patient seen and examined at bedside. Resting in bed and reports of improvement in her abd pain from previous day. Denies n/v tolerating clear liquid diet well, will advance to full liquids, and further advance as tolerated - Constitutional Vitals: Temp Pulse Resp BP Pulse Ox 97.7 F 74 18 108/70 100 09/29/17 10:45 09/29/17 10:45 09/29/17 10:45 09/29/17 10:45 09/29/17 10:45 General appearance: Present: cooperative, A&O X 3, pleasant, no acute distress, obese, answers questions appropriately - Head Head exam: Present: atraumatic, normocephalic - Eye Eye exam: Present: conjuntiva pink, sclera anicteric - Respiratory Respiratory exam: Absent: rales, respiratory distress, wheezes - Cardiovascular Cardiovascular exam: Present: RRR, +S1, +S2. Absent: diastolic murmur, gallop, rubs, systolic murmur - GI/Abdominal GI/Abdominal exam: Present: normal bowel sounds, soft. Absent: distended, tenderness (colostomy intact with stool in bag) - Extremities Exam Extremities exam: Present: warm, radial pulses palpable and symmetrical. Absent : calf tenderness - Neurological Exam Neurological exam: Present: alert, oriented X3 - Psychiatric Psychiatric exam: Present: normal affect, normal mood Internal Medicine: Result - Labs CBC & Chem 7: 09/29/17 04:07 09/29/17 04:07 Labs: Short CBC 09/29/17 Range/Units 04:07 WBC 9.0 (4.3-11.1) K/mcL Hgb 11.2 L D (11.5-15.4) g/dL Hct 34.5 L (35.3-44.9) % Plt Count 276 (140-400) K/mcL Neutrophils # 6.8 (1.6-8.9) K/mcL BMP 09/29/17 04:07 Sodium 133 L Potassium 3.9 Chloride 107 Carbon Dioxide 16 L BUN 55 H Creatinine 2.34 H Glucose 88 Calcium 9.3 Liver Function 09/29/17 Range/Units 04:07 Total Bilirubin 0.9 (0.2-1.2) mg/dL AST 103 H (5-34) Units/L ALT 178 H (0-55) Units/L Alkaline Phosphatase 125 (38-126) Units/L Albumin 2.3 L D (3.5-5.0) g/dL Consult Discharge Plan - Plan Referrals: Hilary Henriquez DO [Primary Care Provider] -
[2017-09-30] MEDS: MetroNIDAZOLE 500 MG/100 ML 500 MG/100 ML BAG IVPB SCH ×3 (02:37→17:08)
[2017-09-30] MEDS: Sodium Bicarbonate 100 MEQ in D5% in Water 1,000 ML IVC SCH (02:37)
[2017-09-30 05:53] LABS: Basophils # 0.1 K/mcL (0.0-0.2); Basophils % 0.7 %; Eosinophils # 0.1 K/mcL (0.0-0.6); Eosinophils % 1.4 %; Hematocrit 32.4 % (35.3-44.9); Hemoglobin 10.8 g/dL (11.5-15.4); Immature Granulocytes % 0.6 % (0-4); Lymphocytes # 1.1 K/mcL (0.6-4.6); Lymphocytes % 14.8 %; Mean Corpuscular HGB Conc 33.3 g/dL (31.6-35.5); Mean Corpuscular Hemoglobin 31.7 pg (28.0-33.3); Mean Platelet Volume 11.5 fL (9.4-12.4); Monocytes # 0.8 K/mcL (0.0-1.3); Monocytes % 11.1 %; Neutrophils # 5.1 K/mcL (1.6-8.9); Platelet Count 228 K/mcL (140-400); Red Blood Count 3.41 M/mcL (3.82-4.97); Red Cell Distribution Width 14.7 % (11.5-14.5); Segmented Neutrophils % 71.4 %
[2017-09-30 06:13] LABS: Albumin 2.2 g/dL (3.5-5.0); Albumin/Globulin Ratio 0.6 (1.1-2.2); Bilirubin,Total 0.6 mg/dL (0.2-1.2); Calcium 8.6 mg/dL (8.6-10.8); Globulin 3.8 g/dL (2.4-3.5); Magnesium 1.6 mg/dL (1.6-2.6); Potassium 3.7 mEq/L (3.5-4.5)
[2017-09-30] MEDS: *HR* Heparin 5,000 UNIT/ML VIAL SQ SCH ×2 (07:31→17:09)
[2017-09-30] MEDS: Pantoprazole 40 MG VIAL IVP SCH (08:14)
--- NOTE | 2017-09-30 13:03 | Internal Med Progress Note ---
Date of Encounter: 09/30/17 Time of Encounter: 12:20 - Assessment and plan (1) Enteritis Current Visit: Yes Status: Acute Assessment and plan: clinically improving continue cipro and flagyl advance to full liquid diet and further advancement as tolerated (2) Metabolic acidosis Current Visit: Yes Status: Acute Assessment and plan: likely secondary to renal insufficiency and GI loses bicarb deficit: 4.4amp continue bicarb drip (2amp in 0.45at 100cc/hr x 2 bags) will closely monitor awaiting PT/OT evaluation given persistent weakness (3) SARA (acute kidney injury) Current Visit: Yes Status: Acute Assessment and plan: likely secondary to poor PO intake prior to hospitalization renal function improved from previous day continue IVF monitor renal function closely avoid nephrotoxic agents (4) DVT prophylaxis Current Visit: No Status: Acute Assessment and plan: Heparin SQ (5) Hyponatremia Current Visit: Yes Status: Acute Assessment and plan: will continue to monitor (6) Metastatic cancer Current Visit: No Status: Chronic (7) Weakness generalized Current Visit: Yes Status: Chronic Assessment and plan: awaiting PT/OT evaluation - Subjective Interval history: Patient seen and examined at bedside. Resting in chair and reports of improvement compared to previous day. States she feels weak and continues to have nausea, which is improved at this time. Tolerating full liquid diet, will advance to regular diet awaiting PT/OT evaluation Likely d/c in am - Constitutional Vitals: Temp Pulse Resp BP Pulse Ox 97.6 F 72 16 109/73 100 09/30/17 10:38 09/30/17 10:38 09/30/17 10:38 09/30/17 10:38 09/30/17 10:38 General appearance: Present: cooperative, A&O X 3, pleasant, no acute distress, obese, answers questions appropriately - Head Head exam: Present: atraumatic, normocephalic - Respiratory Respiratory exam: Present: CTAB. Absent: respiratory distress, wheezes - Cardiovascular Cardiovascular exam: Present: RRR, +S1, +S2. Absent: diastolic murmur, gallop, rubs, systolic murmur - GI/Abdominal GI/Abdominal exam: Present: normal bowel sounds, soft. Absent: tenderness ( colostomy intact with solid stool in bag) - Extremities Exam Extremities exam: Present: warm, radial pulses palpable and symmetrical. Absent : calf tenderness - Neurological Exam Neurological exam: Present: alert, oriented X3 Internal Medicine: Result - Labs CBC & Chem 7: 09/30/17 04:30 09/30/17 04:30 Labs: Short CBC 09/30/17 Range/Units 04:30 WBC 7.1 (4.3-11.1) K/mcL Hgb 10.8 L (11.5-15.4) g/dL Hct 32.4 L (35.3-44.9) % Plt Count 228 (140-400) K/mcL Neutrophils # 5.1 (1.6-8.9) K/mcL BMP 09/30/17 04:30 Sodium 132 L Potassium 3.7 Chloride 105 Carbon Dioxide 17 L BUN 43 H D Creatinine 1.88 H Glucose 94 Calcium 8.6 Liver Function 09/30/17 Range/Units 04:30 Total Bilirubin 0.6 (0.2-1.2) mg/dL AST 68 H (5-34) Units/L ALT 137 H (0-55) Units/L Alkaline Phosphatase 107 (38-126) Units/L Albumin 2.2 L (3.5-5.0) g/dL Consult Discharge Plan - Plan Referrals: Hilary Henriquez DO [Primary Care Provider] -
[2017-09-30] MEDS: Sodium Bicarbonate 100 MEQ in 0.45 % Sodium Chloride 1,000 ML IVC SCH (15:44)
--- NOTE | 2017-09-30 17:26 | Electrocardiograph Report ---
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
[2017-10-01] MEDS: MetroNIDAZOLE 500 MG/100 ML 500 MG/100 ML BAG IVPB SCH ×2 (01:33→06:32)
[2017-10-01 05:33] LABS: Basophils # 0.1 K/mcL (0.0-0.2); Eosinophils # 0.1 K/mcL (0.0-0.6); Eosinophils % 1.2 %; Hematocrit 30.7 % (35.3-44.9); Hemoglobin 10.5 g/dL (11.5-15.4); Immature Granulocytes % 3.2 % (0-4); Lymphocytes # 1.2 K/mcL (0.6-4.6); Lymphocytes % 20.7 %; Mean Corpuscular HGB Conc 34.2 g/dL (31.6-35.5); Mean Corpuscular Volume 96.5 fL (83.0-100.0); Mean Platelet Volume 10.7 fL (9.4-12.4); Monocytes # 0.7 K/mcL (0.0-1.3); Monocytes % 10.9 %; Neutrophils # 3.8 K/mcL (1.6-8.9); Platelet Count 207 K/mcL (140-400); Red Blood Count 3.18 M/mcL (3.82-4.97); Red Cell Distribution Width 14.6 % (11.5-14.5)
[2017-10-01] MEDS: *HR* Heparin 5,000 UNIT/ML VIAL SQ SCH (06:33)
[2017-10-01 07:38] LABS: Albumin 2.2 g/dL (3.5-5.0); Albumin/Globulin Ratio 0.6 (1.1-2.2); Bilirubin,Total 0.6 mg/dL (0.2-1.2); Calcium 8.5 mg/dL (8.6-10.8); Globulin 3.4 g/dL (2.4-3.5); Magnesium 1.3 mg/dL (1.6-2.6); Phosphorous 2.3 mg/dL (2.3-4.7); Total Protein 5.6 g/dL (6.0-8.3)
[2017-10-01 07:39] LABS: Potassium 3.9 mEq/L (3.5-4.5)
[2017-10-01] MEDS: Sodium Bicarbonate 100 MEQ in 0.45 % Sodium Chloride 1,000 ML IVC SCH (08:07)
[2017-10-01] MEDS: Pantoprazole 40 MG VIAL IVP SCH (08:45)
[2017-10-01 10:29] VITALS: BP 101/65
--- NOTE | 2017-10-01 12:59 | Discharge Summary ---
Date of Encounter: 10/01/17 Time of Encounter: 12:35 - Discharge Diagnosis (1) Enteritis Priority: Primary Status: Acute (2) Metabolic acidosis Priority: Secondary Status: Resolved (3) SARA (acute kidney injury) Priority: Secondary Status: Resolved (4) DVT prophylaxis Priority: Secondary Status: Acute (5) Hyponatremia Priority: Secondary Status: Acute (6) Metastatic cancer Priority: Secondary Status: Chronic (7) Weakness generalized Priority: Secondary Status: Chronic - Discharge Medications Prescriptions: Ciprofloxacin HCl [Cipro] 500 mg PO Q12H #8 tablet metroNIDAZOLE [Flagyl] 500 mg PO TID #12 tablet Home Medications: Ciprofloxacin HCl [Cipro] 500 mg PO Q12H #8 tablet 10/01/17 [Rx] metroNIDAZOLE [Flagyl] 500 mg PO TID #12 tablet 10/01/17 [Rx] Allergies/Adverse Reactions: 3 Allergy/AdvReac Type Severity Reaction Status Date / Time No Known Allergies Allergy Verified 09/28/17 10:47 Date of admission: 09/28/17 15:52 Primary care physician: Reynaldo Maosn Consults: 09/28/17 17:39 Consult to Nutrition [CONS] Routine Comment: Consulting Provider: NUTRITION Reason for Dietary Consult: Diet Education Consult to Custom Designer [CONS] Routine Reason for SW Consult: may need help in the home 09/29/17 15:31 Consult to Physical Therapy [CONS] Routine Comment: Evaluate, develop and implement POC Reason for Consult: evaluation for placement 09/29/17 15:32 Consult to Occupational Therapy [CONS] Routine Comment: Evaluate, develop and implement POC Reason for Consult: evaluation for placement Discharging clinician: Lisseth Peralta Anticipated date of discharge: 10/01/17 - Patient Status Disposition: Home Health Service Condition: Good Functional capacity at discharge: uses cane/walker Overall status at discharge: patient is back to baseline - Discharge Instructions Follow Up With: Hilary Henriquez DO [Primary Care Provider] - Additional Instructions: Please follow up with your primary care physician within five days after your discharge from the hospital. Please continue oral antibiotics as prescribed. Please resume all of your home medications as prescribed by your primary care physician. - Diet and Activity Activity: increase activity as tolerated Diet: low salt diet Hospital course: Ms. Benito is a 67 year old female with PMH of metastatic colon cancer s/p colostomy admitted for enteritis, SARA, and Metabolic acidosis. She was started on IV abx, IV fluids, and bicarb supplementation. She responded well to therapy. SARA and MA resolved. she was evaluated by physical therapy and home health was recommended. She also wished to get palliative care referral as an outpatient. At this time pt is hemodynamically stable and will be discharged to home. - Time Spent with Patient Total time spent providing and/or coordinating discharge services: Less than 30 minutes - Constitutional Vitals: Temp Pulse Resp BP Pulse Ox 97.4 F L 77 16 101/65 100 10/01/17 10:28 10/01/17 10:28 10/01/17 10:28 10/01/17 10:28 10/01/17 10:28 General appearance: Present: cooperative, A&O X 3, pleasant, no acute distress, obese, answers questions appropriately - Head Head exam: Present: atraumatic, normocephalic - Eye Eye exam: Present: conjuntiva pink, sclera anicteric - Respiratory Respiratory exam: Present: CTAB. Absent: accessory muscle use, rales, rhonchi, wheezes - Cardiovascular Cardiovascular exam: Present: RRR, +S1, +S2. Absent: diastolic murmur, gallop, rubs, systolic murmur - GI/Abdominal GI/Abdominal exam: Present: normal bowel sounds, soft, no peritoneal signs. Absent: distended, tenderness (colostomy intact) - Extremities Exam Extremities exam: Present: warm, radial pulses palpable and symmetrical. Absent : calf tenderness - Neurological Exam Neurological exam: Present: alert, oriented X3
--- NOTE | 2017-10-01 13:04 | Physician Discharge Referral ---
Home Health/Hosp Referral Info Transfer to: Home Health Provider in Charge Post Discharge: PCP - Diagnosis (1) Enteritis Priority: Primary Status: Acute (2) Metabolic acidosis Priority: Secondary Status: Resolved (3) SARA (acute kidney injury) Priority: Secondary Status: Resolved (4) DVT prophylaxis Priority: Secondary Status: Acute (5) Hyponatremia Priority: Secondary Status: Acute (6) Metastatic cancer Priority: Secondary Status: Chronic (7) Weakness generalized Priority: Secondary Status: Chronic - Respiratory Orders Smoking Cessation: Smoking cessation has been advised. For more information, call the [place] Tobacco Quit Line at 5-917-AAVTNOW. - Services Needed Following services are medically necessary services: Nursing, Home Health Aide, Physical Therapy, Occupational Therapy - Transfer Medications Prescriptions: Ciprofloxacin HCl [Cipro] 500 mg PO Q12H #8 tablet metroNIDAZOLE [Flagyl] 500 mg PO TID #12 tablet Home Medications: Ciprofloxacin HCl [Cipro] 500 mg PO Q12H #8 tablet 10/01/17 [Rx] metroNIDAZOLE [Flagyl] 500 mg PO TID #12 tablet 10/01/17 [Rx] Allergies/Adverse Reactions: 3 Allergy/AdvReac Type Severity Reaction Status Date / Time No Known Allergies Allergy Verified 09/28/17 10:47 Certification: Further, I certify that my clinical findings support that this patient is homebound (i.e. absences from home require considerable and taxing effort and are for medical reasons or shinto services or infrequently or short duration when for other reasons) because: Homebound Reason: Patient requires assistance of a person or device to safely leave home Attestation: My signature below is to certify that this patient is under my care and that I, or nurse practitioner, or a physician's publisher assistant working with me, has a face-to -face encounter with this patient.
== END 2017-10-01 14:38 | disposition home health service (06) ==
LOC: EMEROO 10:44 → SUATTDRO 15:52 → INTOOBSV 15:52 → 3ANU 15:52
PROVIDERS: ADMIT Internal Medicine; ATTEND Internal Medicine

== ENCOUNTER 2017-10-07 10:01 | Observation (INO) ==
[2017-10-07] MEDS ORDERED: 0.9 % Sodium Chloride 1,000 ML IVC ONE ×2 (10:39→13:03)
[2017-10-07] MEDS ORDERED: Ondansetron 4 MG/2 ML VIAL IVP ONE (10:41)
--- NOTE | 2017-10-07 10:59 | Emergency Department Note ---
Disposition Clinical Impression: Nausea, Metastatic colon cancer in female, Metabolic acidosis, Uremia Disposition: Admitted As Inpatient Condition: Fair Prescriptions: Ondansetron ODT [Zofran ODT] 4 mg SL Q8HR PRN #10 tab.rapdis PRN Reason: Nausea Referrals: Hilary Henriquez DO [Primary Care Provider] - Forms: ED Satisfaction Letter Time of Disposition: 12:21 General Adult HPI - General Chief complaint: ED Upper Respiratory Infection Stated complaint: Flu like symptoms Time Seen by Provider: 10/07/17 10:21 Source: patient Mode of arrival: wheelchair Limitations: no limitations Nursing Notes Reviewed: Yes Vital Signs Reviewed: Yes - History of Present Illness HPI Narrative: 67-year-old female with history of colon cancer status post colostomy presents for evaluation of "flulike illness". Patient states that she has had decreased appetite over the past several weeks. Patient also notes episodes of nausea without emesis. Patient denies any abdominal pain. No chest pain or shortness of breath. No fevers. Patient reports subjective weakness. States that she was seen in the recent past was diagnosed with a colitis. Patient denies any decreased to output of her colostomy. No difficulty with urinating. Pain Scale: 0 - Related Data Previous Rx's Medication Instructions Recorded Ciprofloxacin HCl [Cipro] 500 mg PO Q12H #8 tablet 10/01/17 metroNIDAZOLE [Flagyl] 500 mg PO TID #12 tablet 10/01/17 Ondansetron ODT [Zofran ODT] 4 mg SL Q8HR PRN #10 tab.rapdis 10/07/17 Allergies Allergy/AdvReac Type Severity Reaction Status Date / Time No Known Allergies Allergy Verified 10/07/17 10:45 All systems ED: reviewed and negative except as stated. Constitutional: Reports: as per HPI. Denies: fever Eyes: Reports: as per HPI ENT ED: Reports: as per HPI Cardiovascular: Reports: as per HPI. Denies: chest pain Respiratory: Reports: as per HPI. Denies: cough, dyspnea Gastrointestinal: Reports: as per HPI, nausea. Denies: abdominal pain, vomiting Genitourinary: Reports: as per HPI Musculoskeletal: Reports: as per HPI Integumentary: Reports: as per HPI Neurological: Reports: as per HPI Psychiatric: Reports: as per HPI Endocrine: Reports: as per HPI Hematological/Lymphatic: Reports: as per HPI Past Medical History - Past Medical History Medical history: Reports: cancer, hypertension, other Surgical history: Reports: cholecystectomy, colostomy Psychiatric history: Reports: no psych history - Social History Smoking Status: Never smoker Smokeless Tobacco Status: No Alcohol use: Reports: none Drug use: Reports: none Physical Exam - General Limitations: no limitations General appearance: alert, in no apparent distress - Head Head exam: atraumatic, normocephalic, normal inspection - Eye Eye exam: Present: normal appearance, PERRL, EOMI. Absent: scleral icterus - ENT ENT exam: normal exam, normal oropharynx, mucous membranes moist - Neck Neck exam: Present: normal inspection - Chest Chest inspection: Present: normal inspection, symmetric chest wall rise - Respiratory Respiratory exam: Present: normal lung sounds bilaterally, prolonged expiratory phase. Absent: respiratory distress - Cardiovascular Cardiovascular exam: Present: regular rate, normal rhythm. Absent: systolic murmur - Abdominal Exam Abdominal exam: Present: soft, Non-Tender, other (Functioning colostomy bag). Absent: distention, guarding, rebound - Extremities Exam Extremities exam: Present: normal inspection - Back Exam Back exam: Present: normal inspection, full ROM. Absent: tenderness - Neurological Exam Neurological exam: Present: alert, oriented X3 - Skin Skin exam: Present: warm, dry, intact, normal color Course Course Narrative: Patient seen and examined. Patient's in no acute distress. Patient's records reviewed show that she did have a CAT scan a couple weeks ago. Patient get a repeat scan given her history. Patient will schedule a screening cardiac evaluation with EKG troponin. Basic lab work. Symptomatically with IV fluids and antiemetics. - Reevaluation(s) Reevaluation #1: Spoke with Radiologist who will review the patient's past images. Concerns for possibly metastatic vs infectious or inflammatory. Time: 11:54 Reevaluation #2: Patient seen and examined. Patient's resting comfortably. No acute distress. No abdominal pain. Patient has not had any vomiting. Noted symptomatically treat her with the Zofran. Long discussion with the patient regarding plan of care. Patient's CT results which are the small bowel wall thickening likely related more to metastatic disease and infectious etiology. Patient states that she did take the Cipro Flagyl at home but has felt that that medication as made her nauseous. Patient has not been having any fevers or secondary signs of infection. Patient's etiology is likely attributable to diffuse metastatic disease. antibiotics was not initiated in the emergency department. Time: 12:16 Reevaluation #3: Discussed the case with the hospitalist. Hospitalist accepted the patient. Time: 13:51 Vital Signs Temperature 97.9 F 10/07/17 10:23 Pulse Rate 104 10/07/17 10:23 Respiratory Rate 16 10/07/17 10:23 Blood Pressure 93/60 10/07/17 10:23 O2 Sat by Pulse Oximetry 100 10/07/17 10:23 Temperature 97.9 F 10/07/17 10:23 Pulse Rate 81 10/07/17 13:30 Respiratory Rate 20 10/07/17 13:30 Blood Pressure 110/69 10/07/17 13:30 O2 Sat by Pulse Oximetry 100 10/07/17 13:30 Oxygen Delivery Oxygen Delivery Room Air Medical Decision Making - MDM Narrative Medical decision making narrative: 67-year-old female with known metastatic colon cancer presents for evaluation of nausea and decreased appetite. Patient had an extensive evaluation including a CAT scan of the abdomen and pelvis. Results of the CAT scan were reviewed with the radiologist. Interpretation of the CAT scan is likely consistent with diffuse metastatic disease. Patients had unchanged small bowel wall thickening and was treated on a course of antibiotics which did not seem to have any improvement. Patient's symptoms were treated in emergency department with Zofran. Patient's abdominal exam is nonsurgical. Patient is able to tolerate oral intake in the emergency department. Patient's labs show metabolic acidosis likely secondary to nausea vomiting. Patient also has had worsening renal function. Patient will be admitted to the hospital service for further evaluation and management. Patient was started on a bicarbonate drip to help correct her acidosis. Patient has acute on chronic kidney disease with metabolic acidosis likely secondary to uremia. - Lab Data Lab results reviewed: Yes I reviewed the patient's lab results. Result diagrams: 10/07/17 11:07 10/07/17 11:07 Lab Results 10/07/17 10/07/17 10/07/17 Range/Units 11:07 11:07 11:07 WBC 15.5 H D (4.3-11.1) K/mcL RBC 4.44 (3.82-4.97) M/mcL Hgb 14.3 D (11.5-15.4) g/dL Hct 43.5 (35.3-44.9) % MCV 98.0 (83.0-100.0) fL MCH 32.2 (28.0-33.3) pg MCHC 32.9 (31.6-35.5) g/dL RDW 14.8 H (11.5-14.5) % Plt Count 404 H D (140-400) K/mcL MPV 10.3 (9.4-12.4) fL Immature Gran % 0.8 (0-4) % Seg Neutrophils % 88.5 % Lymphocytes % 5.8 % Monocytes % 4.3 % Eosinophils % 0.1 % Basophils % 0.5 % Neutrophils # 13.7 H (1.6-8.9) K/mcL Lymphocytes # 0.9 (0.6-4.6) K/mcL Monocytes # 0.7 (0.0-1.3) K/mcL Eosinophils # 0.0 (0.0-0.6) K/mcL Basophils # 0.1 (0.0-0.2) K/mcL Sodium 131 L (136-145) mEq/L Potassium 4.3 (3.5-5.1) mEq/L Chloride 101 (98-107) mEq/L Carbon Dioxide 10 L* (23-29) mEq/L BUN 68 H (8-23) mg/dL Creatinine 3.61 H (0.60-1.20) mg/dL Est GFR ( Amer) 15 L (> 60) Est GFR (Non-Af Amer) 12 L (> 60) BUN/Creatinine Ratio 19 (6-26) Glucose 123 H (70-105) mg/dL Calculated Osmolality 293 (280-300) Lactic Acid 1.9 (0.5-2.2) mmol/L Calcium 9.9 (8.6-10.3) mg/dL Total Bilirubin 0.8 (0.3-1.0) mg/dL AST 89 H (13-39) Units/L ALT 70 H (7-52) Units/L Alkaline Phosphatase 100 (34-104) Units/L Troponin I (< 0.04) ng/mL Serum Total Protein 7.9 (6.4-8.9) g/dL Albumin 4.1 (3.5-5.7) g/dL Globulin 3.8 H (2.4-3.5) g/dL Albumin/Globulin Ratio 1.1 (1.1-2.2) Urine Color (Yellow) Urine Clarity (Clear) Urine pH (5.0-8.0) pH Units Ur Specific [place] (1.010-1.025) Urine Protein (Neg-Trace) mg/dL Urine Glucose (UA) (Normal) mg/dL Urine Ketones (Negative) mg/dL Urine Blood (Negative) Urine Nitrite (Negative) Urine Bilirubin (Negative) Urine Urobilinogen (Normal) mg/dL Ur Leukocyte Esterase (Negative) Urine Microscopic RBC (0-3) per hpf Urine Microscopic WBC (0-3) per hpf Ur Squamous Epith Cells (None-Few) per lpf Amorphous Sediment (Few) Urine Bacteria (None-Few) per hpf Hyaline Casts (None-Few) per lpf Granular Casts (None Seen) per lpf Ur Culture Indicated? (NO) 10/07/17 10/07/17 Range/Units 11:07 11:41 WBC (4.3-11.1) K/mcL RBC (3.82-4.97) M/mcL Hgb (11.5-15.4) g/dL Hct (35.3-44.9) % MCV (83.0-100.0) fL MCH (28.0-33.3) pg MCHC (31.6-35.5) g/dL RDW (11.5-14.5) % Plt Count (140-400) K/mcL MPV (9.4-12.4) fL Immature Gran % (0-4) % Seg Neutrophils % % Lymphocytes % % Monocytes % % Eosinophils % % Basophils % % Neutrophils # (1.6-8.9) K/mcL Lymphocytes # (0.6-4.6) K/mcL Monocytes # (0.0-1.3) K/mcL Eosinophils # (0.0-0.6) K/mcL Basophils # (0.0-0.2) K/mcL Sodium (136-145) mEq/L Potassium (3.5-5.1) mEq/L Chloride (98-107) mEq/L Carbon Dioxide (23-29) mEq/L BUN (8-23) mg/dL Creatinine (0.60-1.20) mg/dL Est GFR ( Amer) (> 60) Est GFR (Non-Af Amer) (> 60) BUN/Creatinine Ratio (6-26) Glucose (70-105) mg/dL Calculated Osmolality (280-300) Lactic Acid (0.5-2.2) mmol/L Calcium (8.6-10.3) mg/dL Total Bilirubin (0.3-1.0) mg/dL AST (13-39) Units/L ALT (7-52) Units/L Alkaline Phosphatase (34-104) Units/L Troponin I < 0.03 (< 0.04) ng/mL Serum Total Protein (6.4-8.9) g/dL Albumin (3.5-5.7) g/dL Globulin (2.4-3.5) g/dL Albumin/Globulin Ratio (1.1-2.2) Urine Color Dark Yellow (Yellow) Urine Clarity Cloudy A (Clear) Urine pH 5.0 (5.0-8.0) pH Units Ur Specific [place] > 1.030 H (1.010-1.025) Urine Protein 100 H (Neg-Trace) mg/dL Urine Glucose (UA) Normal (Normal) mg/dL Urine Ketones Negative (Negative) mg/dL Urine Blood Negative (Negative) Urine Nitrite Negative (Negative) Urine Bilirubin Small H (Negative) Urine Urobilinogen Normal (Normal) mg/dL Ur Leukocyte Esterase Negative (Negative) Urine Microscopic RBC 0-3 (0-3) per hpf Urine Microscopic WBC 5-15 H (0-3) per hpf Ur Squamous Epith Cells Many H (None-Few) per lpf Amorphous Sediment Moderate H (Few) Urine Bacteria Few (None-Few) per hpf Hyaline Casts Few (None-Few) per lpf Granular Casts Few H (None Seen) per lpf Ur Culture Indicated? NO (NO) - Radiology Data Radiology results reviewed: Yes I reviewed the patient's radiology results. Chest X-Ray 10/07/17 10:39 IMPRESSION: No active cardiopulmonary disease D/ / Bryson Wilkerson MD / Bryson Wilkerson MD Interpreting Provider: Bryson Wilkerson MD Abdomen/Pelvis CT 10/07/17 10:43 IMPRESSION: 1. No new acute abnormality. 2. Diffuse peritoneal metastases. 3. Unchanged thickening of the mid abdominal small bowel loops which is likely related to peritoneal metastatic disease. Critical results were called by Dr. Brennan Betancourt MD to Shayne Dewitt Downs on 10/07/2017 at 12:05. D/ / 10/07/2017 11:44:58 Brennan Betancourt MD / stu Interpreting Provider: Brennan Betancourt MD - EKG Data EKG #1 EKG attestation: Yes I reviewed and interpreted this EKG. EKG shows normal: sinus rhythm Rate: normal Rhythm: NSR [place]/QRS: normal Q waves: III Interpretation: no acute changes S.B.AMauricio - Janine.LoreneAMauricio Situation: Demographics Background: Presenting Complaint Assessment: Vital Signs, Course and respsone to treatment, Patient/Family Expectation, Pertinant Lab Results Recommendation: Barrier(s) to disposition, Recommendation based on pending studies, treatments, or consults S.B.AMauricio Report Given to: Dr. Lexi Cerda Repor Time: 13:55
[2017-10-07 11:16] LABS: Basophils # 0.1 K/mcL (0.0-0.2); Basophils % 0.5 %; Eosinophils % 0.1 %; Hematocrit 43.5 % (35.3-44.9); Immature Granulocytes % 0.8 % (0-4); Lymphocytes # 0.9 K/mcL (0.6-4.6); Lymphocytes % 5.8 %; Mean Corpuscular HGB Conc 32.9 g/dL (31.6-35.5); Mean Corpuscular Hemoglobin 32.2 pg (28.0-33.3); Mean Platelet Volume 10.3 fL (9.4-12.4); Monocytes # 0.7 K/mcL (0.0-1.3); Monocytes % 4.3 %; Neutrophils # 13.7 K/mcL (1.6-8.9); Platelet Count 404 K/mcL (140-400); Red Blood Count 4.44 M/mcL (3.82-4.97); Red Cell Distribution Width 14.8 % (11.5-14.5); Segmented Neutrophils % 88.5 %
[2017-10-07 11:17] LABS: Hemoglobin 14.3 g/dL (11.5-15.4)
[2017-10-07 11:53] LABS: Bilirubin,Urine Small (Negative); Blood,Urine Negative (Negative); Clarity,Urine Cloudy (Clear); Color,Urine Dark Yellow (Yellow); Glucose,Urine (UA) Normal (Normal); Ketones,Urine Negative (Negative); Leukocyte Esterase,Urine Negative (Negative); Nitrite,Urine Negative (Negative); Protein,Urine 100 mg/dL (Neg-Trace); Specific Gravity,Urine > 1.030 (1.010-1.025); Urobilinogen,Urine Normal (Normal)
[2017-10-07 11:54] LABS: Hyaline Casts,Urine Few per lpf (None-Few); Squamous Epithelial Cell,Urine Many per lpf (None-Few)
[2017-10-07 12:03] LABS: RBC,Urine 0-3 per hpf (0-3)
[2017-10-07 12:04] LABS: Granular Casts,Urine Few per lpf (None Seen)
[2017-10-07 12:07] LABS: Amorphous Sediment,Urine Moderate (Few); Bacteria,Urine Few per hpf (None-Few)
[2017-10-07 12:58] LABS: Albumin 4.1 g/dL (3.5-5.7); Albumin/Globulin Ratio 1.1 (1.1-2.2); Calcium 9.9 mg/dL (8.6-10.3); Globulin 3.8 g/dL (2.4-3.5); Potassium 4.3 mEq/L (3.5-5.1)
[2017-10-07 12:59] LABS: Bilirubin,Total 0.8 mg/dL (0.3-1.0); Total Protein 7.9 g/dL (6.4-8.9)
[2017-10-07] MEDS ORDERED: Sodium Bicarbonate 150 MEQ in D5% in Water 1,000 ML IVC SCH (14:00)
[2017-10-07 14:26] LABS: Capillary Blood PH 7.41 pH Units (7.32-7.45)
[2017-10-07] MEDS ORDERED: Naloxone 0.4 MG/ML INJ IVP PRN (15:07)
[2017-10-07] MEDS ORDERED: Ondansetron 4 MG/2 ML VIAL IVP PRN (15:07)
[2017-10-07] MEDS ORDERED: Acetaminophen 325 MG TABLET PO PRN (15:07)
--- NOTE | 2017-10-07 15:29 | Internal Med History&Physical ---
<Yasmin Duran - Last Filed: 10/07/17 17:17> Date of Encounter: 10/07/17 Time of Encounter: 15:29 Assessment and Plan (1) Acute renal failure superimposed on chronic kidney disease Status: Acute Previous creatinine on 1.61 10/01/17 - today 3.61 . Suspect this prerenal, secondary to fluid loss from vomiting and colostomy. will continue to monitor creatinine will give IVF- D5 with 150 bicarb- dt bicarb 10. we will monitor chemistry panel closely monitor I/O daily weights avoid nephrotoxins Qualifiers: Acute renal failure type: unspecified Chronic kidney disease stage: stage 4 (severe) Qualified Code(s): N17.9 - Acute kidney failure, unspecified; N18.4 - Chronic kidney disease, stage 4 (severe); N18.4 - Chronic kidney disease , stage 4 (severe); N18.4 - Chronic kidney disease, stage 4 (severe); N18.4 - Chronic kidney disease, stage 4 (severe) (2) Metabolic acidosis Status: Acute bicarb 10, most likely rt vomiting and diarrhea - fluid loss - we will initiate bicarb drip and monitor chem 7 (3) Hyponatremia Status: Acute 1 presently 131, has been vomiting and has colostomy giving IV fluid - D5 with bicarb, will monitor electrolytes (4) Metastatic cancer Status: Chronic patient has been followed by dr Peña - last dose Xeledo Nov 20- Post colon resection including appendix small bowel mesentery nodule transverse colon and sigmoid colon by Dr. Barry on 04/06/2017 She has been experiencing decrease appetite for past few weeks, weight loss as well as nausea over past few weeks. - CT of abd today-Diffuse peritoneal metastases. Unchanged thickening of the mid abdominal small bowel loops which is likely related to peritoneal metastatic disease.- consult surgery Review of notes - patient was seen by palliative - at that time the patient did not appear interested in services- she cont to have n/v decreased oral intake SARA- debility- will reconsult for possible hospice services- patient was DNR CCA- no intubation - when previously spoke with palliative she agrees same code status DNR CCA no intubation (5) DVT prophylaxis Status: Acute Heparin subcutaneous Internal Medicine - H&P: HPI Chief complaint: weakness Admitted From: Emergency Dept Plans for Post Hospital Care: Home History of present illness: Ms. Benito is a 67 year old female with past medicalhx of colon cancer s/p colostomy, she is not receiving any treatment at this time. She is followed by Dr Peña, malinda Driscoll on Sep 02. She has had a decreased appetite over the past few weeks, as well as over the past 3 days she has had general malaise nausea nad vomiting. She has not been able to eat or drink. She does have a colostomy and denies any change in amount or consistency. It is normally very watery. She denies any fever chills or abd pain. Denies any urinary sx or decrease in urinary output. She was admitted at this facility approx 2 weeks ago for N/V SARA. She was recently dx with colitis and completed ATB coure of cipro and flagyl. Lab work did show SARA hyponatremia metabolic acidosis. SHe has been admitted for further workup and evaluation Past Med Surg Social Fam HX - Past Medical History Medical history: cancer, hypertension, other Psychiatric history: no psych history - Past Surgical History Surgical History: cholecystectomy, colostomy - Social History Smoking Status: Never smoker Smokeless Tobacco Status: No Alcohol use: none Drug use: none - Family History Mother Family Member Ethnicity: Non- Living Status: Hx Family Cardiac Disorders: No Hx Family Respiratory Disorders: No Hx Family Cancer: Yes Hx Family GI Disorders: No Hx Family Endocrine Disorder: No Hx Family Neuromuscular Disorders: No Hx Family Neurologic Disorders: No Hx Family HEENT Disorders: No Hx Family Autoimmune Disorders: No Father Family Member Ethnicity: Non- Living Status: Hx Family Cancer: Yes (Prostate) Brother Family Member Ethnicity: Non- Living Status: Still Living Internal Medicine - H&P: Meds Aspirin [Lo-Dose Aspirin EC] 81 mg PO DAILY 10/07/17 [History] Ferrous Sulfate [Iron] 325 mg PO DAILY 10/07/17 [History] Levothyroxine Sodium [Levoxyl] 50 mcg PO DAILY 10/07/17 [History] Ondansetron ODT [Zofran ODT] 4 mg SL Q8HR PRN #10 tab.rapdis 10/07/17 [Rx] Megestrol Acetate [Megace] 40 mg PO DAILY #60 tablet 10/09/17 [Rx] Ondansetron ODT [Zofran ODT] 4 mg SL Q6HR PRN #30 tab.rapdis 10/09/17 [Rx] Promethazine [Phenergan] 12.5 mg PO Q6HR PRN #30 tablet 10/09/17 [Rx] 3 Allergy/AdvReac Type Severity Reaction Status Date / Time No Known Allergies Allergy Verified 10/07/17 10:45 All Systems PM: A 10-system review of systems was performed and is negative for pertinent findings except as documented above in the HPI. - Constitutional Constitutional: anorexia, malaise, weight loss - EENT Eyes: no change in vision, no discharge, no pain, no photophobia Ears: no ear discharge, no ear pain, no tinnitus Nose, mouth and throat: no dysphagia, no nasal discharge, no neck pain, no sore throat - Cardiovascular Cardiovascular ROS IM: no chest pain, no diaphoresis, no dyspnea, no lightheadedness, no palpitations, no syncope - Respiratory Respiratory: no cough, no dyspnea, no wheezing, no excessive phlegm production - Gastrointestinal Gastrointestinal: nausea, vomiting - Genitourinary Genitourinary: no change in urinary stream, no dysuria, no flank pain, no hematuria - Musculoskeletal Musculoskeletal ROS IM: no numbness, no tingling - Integumentary Integumentary IM: no rash, no unusual bruising - Neurological Neurological ROS: no confusion, no convulsions, no focal weakness, no numbness, no tingling, no tremor(s) - Hematologic/Lymphatic Hematologic/Lymphatic: no easy bruising - Constitutional Vitals: Temp Pulse Resp BP Pulse Ox 97.6 F 85 16 106/63 100 10/07/17 15:00 10/07/17 15:00 10/07/17 15:00 10/07/17 15:00 10/07/17 15:00 General appearance: Present: A&O X 3, answers questions appropriately - Head Head exam: Present: atraumatic, normocephalic - Eye Eye exam: Present: PERRL, conjuntiva pink, sclera anicteric Pupils: Present: PERRL - Neck Neck exam general surgery: Present: supple, trachea midline. Absent: lymphadenopathy - Respiratory Respiratory exam: Present: CTAB. Absent: accessory muscle use, rales, rhonchi, wheezes - Cardiovascular Cardiovascular exam: Present: RRR, +S1, +S2. Absent: diastolic murmur, gallop, rubs, systolic murmur - GI/Abdominal GI/Abdominal exam: Present: normal bowel sounds, soft, no peritoneal signs. Absent: distended, tenderness Additional comments: colostomy to R quadrant - Extremities Exam Extremities exam: Present: warm, radial pulses palpable and symmetrical. Absent : calf tenderness, cyanotic, pedal edema - Neurological Exam Neurological exam: Present: CN II-XII intact, oriented X3, no focal deficits. Absent: pronater drift, facial droop, speech deficit - Skin Skin exam: Present: dry, intact Internal Med - H&P Results - Labs CBC & Chem 7: 10/07/17 11:07 10/07/17 11:07 - EKG Data EKG shows normal: sinus rhythm - EKG Data Prior EKG available for review: no - Diagnostic Studies Other Images Additional comments: Chest X-Ray 10/07/17 10:39 IMPRESSION: No active cardiopulmonary disease D/ / Bryson Wilkerson MD / Bryson Wilkerson MD Interpreting Provider: Bryson Wilkerson MD Abdomen/Pelvis CT 10/07/17 10:43 IMPRESSION: 1. No new acute abnormality. 2. Diffuse peritoneal metastases. 3. Unchanged thickening of the mid abdominal small bowel loops which is likely related to peritoneal metastatic disease. Critical results were called by Dr. Brennan Betancourt MD to Shayne Downs on 10/07/2017 at 12:05. D/ / 10/07/2017 11:44:58 Brennan Betancourt MD / stu Interpreting Provider: Brennan Betancourt MD <Tamiko Elliott - Last Filed: 10/13/17 06:49> Date of Encounter: 10/13/17 Internal Medicine - H&P: HPI History of present illness: Ms. Benito is a 67 year old female All Systems PM: A 10-system review of systems was performed and is negative for pertinent findings except as documented above in the HPI. - Constitutional Vitals: Temp Pulse Resp BP Pulse Ox 97.5 F L 64 16 107/69 100 10/09/17 07:30 10/09/17 07:30 10/09/17 07:30 10/09/17 07:30 10/09/17 07:30 Internal Med - H&P Results - Labs CBC & Chem 7: 10/09/17 04:23 10/09/17 06:47 - Attending Attestation I personally and independently interviewed and examined the patient, and I reviewed the patient's medical records. I am in agreement with SHOVEL OPERATOR assessment and proposed treatment plan. I discussed my findings and recommendation with the patient and answer all questions. The patient's medical records were edited to accurately reflect this encounter.
[2017-10-07] MEDS: *HR* Heparin 5,000 UNIT/ML VIAL SQ SCH (17:51)
[2017-10-07 20:20] LABS: Calcium 8.7 mg/dL (8.6-10.3); Potassium 3.2 mEq/L (3.5-5.1)
[2017-10-07] MEDS: 0.9 % Sodium Chloride 1,000 ML IVC SCH (23:25)
[2017-10-08] MEDS: *HR* Heparin 5,000 UNIT/ML VIAL SQ SCH ×2 (05:27→17:38)
[2017-10-08 05:36] LABS: Basophils % 0.5 %; Eosinophils # 0.1 K/mcL (0.0-0.6); Eosinophils % 1.2 %; Hematocrit 31.7 % (35.3-44.9); Hemoglobin 10.6 g/dL (11.5-15.4); Immature Granulocytes % 0.9 % (0-4); Lymphocytes # 1.1 K/mcL (0.6-4.6); Lymphocytes % 14.6 %; Mean Corpuscular HGB Conc 33.4 g/dL (31.6-35.5); Mean Corpuscular Hemoglobin 31.8 pg (28.0-33.3); Mean Corpuscular Volume 95.2 fL (83.0-100.0); Mean Platelet Volume 10.4 fL (9.4-12.4); Monocytes # 0.8 K/mcL (0.0-1.3); Monocytes % 10.2 %; Neutrophils # 5.7 K/mcL (1.6-8.9); Platelet Count 223 K/mcL (140-400); Red Blood Count 3.33 M/mcL (3.82-4.97); Red Cell Distribution Width 14.8 % (11.5-14.5); Segmented Neutrophils % 72.6 %
[2017-10-08] MEDS: 0.9 % Sodium Chloride 1,000 ML IVC SCH ×3 (05:48→23:22)
[2017-10-08 05:49] LABS: Calcium 8.3 mg/dL (8.6-10.3); Magnesium 1.8 mg/dL (1.6-2.6); Potassium 3.6 mEq/L (3.5-5.1)
[2017-10-08] MEDS: Aspirin Enteric Coated 81 MG Tablet PO SCH (07:58)
--- NOTE | 2017-10-08 09:27 | Internal Med Progress Note ---
<Didier Urbina - Last Filed: 10/08/17 11:40> Date of Encounter: 10/08/17 Time of Encounter: 09:25 - Assessment and plan (1) Acute renal failure superimposed on chronic kidney disease Current Visit: Yes Status: Acute Assessment and plan: Secondary to dehydration secondary to nausea and vomiting. Improving Since baseline kidney function undulates according to previous labs Serum creatinine 2.39 today. Continue IV fluids and decrease rate to 100 and hour. Qualifiers: Acute renal failure type: unspecified Chronic kidney disease stage: stage 4 (severe) Qualified Code(s): N17.9 - Acute kidney failure, unspecified; N18.4 - Chronic kidney disease, stage 4 (severe); N18.4 - Chronic kidney disease , stage 4 (severe); N18.4 - Chronic kidney disease, stage 4 (severe); N18.4 - Chronic kidney disease, stage 4 (severe) (2) Hyponatremia Current Visit: Yes Status: Acute Assessment and plan: Chronically hyponatremic since August. hypotonic euvolemic hyponatremia stable likely combination of poor oral intake, N/V. (3) Decreased appetite Current Visit: Yes Status: Acute Assessment and plan: Setting of metastatic colon cancer. She has been experiencing decreased appetite, weight loss, nausea or the past few weeks. Her CT of the abdomen shows diffuse peritoneal metastases metastasis. Patient states she does not have any appetite stimulating or nausea relieving measures at home. We will continue patient on Zofran, and start patient on megace (4) DVT prophylaxis Current Visit: Yes Status: Acute Assessment and plan: Heparin subcutaneous (5) Metabolic acidosis Current Visit: Yes Status: Acute Assessment and plan: first bicarb likely false N/V usually causes metabolic alkalosis. bicarb was 10 on admission replaced and stable d/c bicarb (6) Metastatic cancer Current Visit: Yes Status: Chronic Assessment and plan: Patient has stage III colon adenocarcinoma. Status post colon resection including appendicitis, small bowel mesentery, transverse colon, sigmoid colon on 04/06/2017. Right lower quadrant colostomy. Patient on Xeloda with last dose August. CT abdomen shows worsening metastatic disease. Patient currently unclear if she would want to go back on chemotherapy. partient would like to follow-up with oncology outpatient before making a decision (7) Nausea & vomiting Current Visit: Yes Status: Resolved Assessment and plan: resolved. in setting of metastatic colon cancer, on chemotheraphy continue zofran prn advance to regular diet. plan: d/c with prn zofran and Phenergan Qualifiers: Vomiting type: unspecified Vomiting Intractability: non-intractable Qualified Code(s): R11.2 - Nausea with vomiting, unspecified - Subjective Interval history: Patient sitting comfortably in chair. She reports her nausea and vomiting have resolved. She is able to tolerate her diet. She denies any shortness of breath , chest pain, abdominal pain, lower extremity swelling. She reports in the recent week she has had decreased appetite. She does not have any medication to control her nausea and home. She does not have any medication at home to increase her appetite. - Constitutional Vitals: Temp Pulse Resp BP Pulse Ox 97.7 F 81 14 106/62 99 10/08/17 07:43 10/08/17 07:43 10/08/17 07:43 10/08/17 07:43 10/08/17 07:43 General appearance: Present: A&O X 3, answers questions appropriately - Other Additional findings: General: pleasant without distress HEENT: Head atraumatic, normocephalic, EOMI, PERRLA, neck nontender to palpation , absent lymphadenopathy, Moist Mucous Membranes, Heart: Regular rate and rhythm with no murmur Lungs: Clear to auscultation bilaterally Abdomen: Soft nontender, nondistended positive bowel sounds Skin: warm and dry Extremities: Absent pedal edema Neuro: Cranial nerves II through XII intact, UE and LE sensation equal bilaterally, UE and LEstrength 5/5, alert oriented 3, Vascular: Pedal and radial pulses 2 out of 4 Internal Medicine: Result - Labs CBC & Chem 7: 10/08/17 05:22 10/08/17 05:22 Labs: Short CBC 10/08/17 Range/Units 05:22 WBC 7.8 (4.3-11.1) K/mcL Hgb 10.6 L D (11.5-15.4) g/dL Hct 31.7 L (35.3-44.9) % Plt Count 223 (140-400) K/mcL Neutrophils # 5.7 (1.6-8.9) K/mcL BMP 10/07/17 10/08/17 19:54 05:22 Sodium 133 L 134 L Potassium 3.2 L D 3.6 Chloride 101 104 Carbon Dioxide 23 23 BUN 60 H 53 H Creatinine 2.71 H 2.39 H Glucose 92 91 Calcium 8.7 8.3 L Consult Discharge Plan - Plan Referrals: Hilary Henriquez DO [Primary Care Provider] - <Mandeep Matthew - Last Filed: 10/08/17 12:48> Date of Encounter: 10/08/17 - Constitutional Vitals: Temp Pulse Resp BP Pulse Ox 97.7 F 68 17 117/69 100 10/08/17 10:58 10/08/17 10:58 10/08/17 10:58 10/08/17 10:58 10/08/17 10:58 Internal Medicine: Result - Labs CBC & Chem 7: 10/08/17 05:22 10/08/17 05:22 Labs: Short CBC 10/08/17 Range/Units 05:22 WBC 7.8 (4.3-11.1) K/mcL Hgb 10.6 L D (11.5-15.4) g/dL Hct 31.7 L (35.3-44.9) % Plt Count 223 (140-400) K/mcL Neutrophils # 5.7 (1.6-8.9) K/mcL BMP 10/07/17 10/08/17 19:54 05:22 Sodium 133 L 134 L Potassium 3.2 L D 3.6 Chloride 101 104 Carbon Dioxide 23 23 BUN 60 H 53 H Creatinine 2.71 H 2.39 H Glucose 92 91 Calcium 8.7 8.3 L - Attending Attestation I have seen and independently examined this patient today October 08 and discussed the plan of care of the patient and the resident physician at the bedside. 67-year-old female with metastatic colon cancer/status post colostomy, he is readmitted for the first time this month for acute on chronic kidney injury, secondary to poor oral intake and poor appetite and nausea and vomiting. Patient reports that the bedside she has not had any vomiting since admission. Patient also reported not having in his AT HOME. PHYSICAL EXAMINATION CHRONICALLY ILL LOOKING, STABLE VITAL SIGNS, CHEST IS CLEAR TO AUSCULTATION BILATERALLY, HEART SOUNDS S1 AND S2 WITHOUT TACHYCARDIA, ABDOMEN IS SOFT AND NONTENDER RIGHT COLOSTOMY BAG FILLED WITH LIQUID OUTPUT. NO PEDAL EDEMA. NEUROLOGICALLY INTACT. LABS AND IMAGING REVIEWED METABOLIC ACIDOSIS ON ADMISSION IS PROBABLY FALSE REPORT ACIDOSIS QUICKLY RESOLVED. CREATININE IS SLOWLY IMPROVING. HYPONATREMIA IS CHRONIC. HYPOKALEMIA HAS RESOLVED. Plan, is to continue current management, and add Megace for appetite stimulation , continue supportive care. Patient's evaluation requested by admitting team with plan. Consider home care initiation upon discharge when patient is medically ready Recent details as in the resident physicians documentation.
--- NOTE | 2017-10-08 12:14 | Palliative - Consult Note ---
Date of Encounter: 10/08/17 Time of Encounter: 10:20 - Assessment and Plan (1) Nausea Current Visit: Yes Status: Acute Assessment and plan: Ondansetron has been effective. Monitor (2) Decreased appetite Current Visit: Yes Status: Acute Assessment and plan: Megastrol has been initiated by hospitalist. Monitor (3) Counseling regarding advanced care planning and goals of care Current Visit: Yes Status: Acute Assessment and plan: Met and discussed goals of care with patient. She currently is living with significant other, Heber. She does not have advanced directives in place. She refused in the past when I saw her, but is now willing to consider. Code status remains DNR/DNI as established earlier. Her presenting symptoms are improving and she is hoping to go home soon. She currently has no services in place. Her brother is at bedside during the conversation. She is hoping to follow up with Dr. Peña at [facility] for any other options regarding her cancer, but states, "everytime I end up back in hospital before appt". She is interested in having home delivered meals, and also open to home health services upon discharge. Discussed that [facility] home palliative program may be able to provide symptom management. We did discuss hospice at length, if she decided she does not want treatment, or if she is not eligible for further treatment. Discussed what support and services they could offer for her at home , and try to prevent recurrent hospitalizations. Discussed that the [facility] or Dr. Henriquez could do referral if she decides she would like to enroll in hospice. She verbalized understanding. D/W Js WOODRUFF who will be working with pt on setup of home services, and possibly advanced directives if she agrees to do so. Will follow. (4) Metastatic cancer Current Visit: Yes Status: Chronic Palliative-CN HPI - Data of Consult Consult date: 10/08/17 Requesting Physician: Mandeep Matthew MD Primary Care Provider: Reynaldo Mason - Consult Narrative History of present illness: Ms. Benito is a 67 year old female with who presented after decreased appetite over the past few weeks, with increasing nausea/vomiting the last couple of days prior to admission. She has past medical hx of colon cancer s/p colostomy , followed by Dr. Peña, and she is not receiving any treatment at this time. She had stopped Xeloda back in August related to intolerance. She was admitted at this facility approx 2 weeks ago for N/V SARA, and is familiar to our team from a previous visit. She was recently dx with colitis and completed ATB coure of [employer] and [employer]. She states she is feeling better, and nausea better controlled. She will be increased to a regular diet, and is asking me for a coke. Denies any pain or discomfort. C/o generalized weakness. CC: Mandeep Matthew MD Past Med Surg Social Fam HX - Past Medical History Medical history: cancer, hypertension, other Psychiatric history: no psych history - Past Surgical History Surgical History: cholecystectomy, colostomy - Social History Smoking Status: Never smoker Smokeless Tobacco Status: No Alcohol use: none Drug use: none - Family History Mother Family Member Ethnicity: Non- Living Status: Hx Family Cardiac Disorders: No Hx Family Respiratory Disorders: No Hx Family Cancer: Yes Hx Family GI Disorders: No Hx Family Endocrine Disorder: No Hx Family Neuromuscular Disorders: No Hx Family Neurologic Disorders: No Hx Family HEENT Disorders: No Hx Family Autoimmune Disorders: No Father Family Member Ethnicity: Non- Living Status: Hx Family Cancer: Yes (Prostate) Brother Family Member Ethnicity: Non- Living Status: Still Living Medications and Allergies Aspirin [Lo-Dose Aspirin EC] 81 mg PO DAILY 10/07/17 [History] Ferrous Sulfate [Iron] 325 mg PO DAILY 10/07/17 [History] Levothyroxine Sodium [Levoxyl] 50 mcg PO DAILY 10/07/17 [History] Ondansetron ODT [Zofran ODT] 4 mg SL Q8HR PRN #10 tab.rapdis 10/07/17 [Rx] 3 Allergy/AdvReac Type Severity Reaction Status Date / Time No Known Allergies Allergy Verified 10/07/17 10:45 All systems: reviewed and no additional remarkable complaints except as stated ( nausea/vomiting, poor appetite, generalized weakness) Palliative Care-Exam - Constitutional Vitals: Temp Pulse Resp BP Pulse Ox 97.7 F 68 17 117/69 100 10/08/17 10:58 10/08/17 10:58 10/08/17 10:58 10/08/17 10:58 10/08/17 10:58 General appearance: Present: no acute distress - Head Head Exam: Present: normal inspection, normocephalic - Eye Eye exam: Present: normal appearance, PERRL - Respiratory Respiratory exam: Present: CTAB - Cardiovascular Cardiovascular exam: Present: +S1, +S2 - GI/Abdominal Exam GI/Abdominal exam: Present: normal bowel sounds, soft additional comments: Ostomy with green liquid stool - Extremities Exam Extremities exam: Present: normal capillary refill, normal inspection - Neurological Exam Neurological exam: Present: alert, oriented X3, strengths equal and symetr throughout - Skin Skin exam: Present: dry, warm Internal Medicine - CN: Reslt - Labs CBC & Chem 7: 10/08/17 05:22 10/08/17 05:22 Labs: Short CBC 10/08/17 Range/Units 05:22 WBC 7.8 (4.3-11.1) K/mcL Hgb 10.6 L D (11.5-15.4) g/dL Hct 31.7 L (35.3-44.9) % Plt Count 223 (140-400) K/mcL Neutrophils # 5.7 (1.6-8.9) K/mcL BMP 10/07/17 10/08/17 19:54 05:22 Sodium 133 L 134 L Potassium 3.2 L D 3.6 Chloride 101 104 Carbon Dioxide 23 23 BUN 60 H 53 H Creatinine 2.71 H 2.39 H Glucose 92 91 Calcium 8.7 8.3 L Consult Discharge Plan - Plan Referrals: Hilary Henriquez DO [Primary Care Provider] - Palliative Quality Palliative Quality: Screen for Code Status: Yes, Screen for Goals of Care: Yes, Screen for Pain: Yes, If Pain Regimen Started, Initiate Bowel Regimen: NA, Screen for Nausea/Vomitting: Yes Code Status: 10/07/17 15:07 Resuscitation Status: Active [RES] Routine Comment: Resuscitation Status: Full Code Resuscitation Status: Active [RES] Routine Comment: Resuscitation Status: [id number]
--- NOTE | 2017-10-08 13:21 | Physician Discharge Referral ---
Home Health/Hosp Referral Info Transfer to: Home Health Attending Provider: Dr. Matthew Provider in Charge Post Discharge: PCP - Diagnosis (1) Acute renal failure superimposed on chronic kidney disease Priority: Primary Status: Acute (2) Hyponatremia Priority: Secondary Status: Chronic (3) Decreased appetite Priority: Secondary Status: Acute (4) DVT prophylaxis Priority: Secondary Status: Acute (5) Metabolic acidosis Priority: Secondary Status: Ruled-out (6) Metastatic cancer Priority: Secondary Status: Chronic (7) Nausea & vomiting Priority: Secondary Status: Resolved - Respiratory Orders Smoking Cessation: Smoking cessation has been advised. For more information, call the [place] Tobacco Quit Line at 4-422-MRFO-NOW. - Diet/Nutrition Diet/Nutrition Orders: Regular - Activity Activity Orders: Up ad deborah - Services Needed Following services are medically necessary services: Nursing, Home Health Aide - Transfer Medications Home Medications: Aspirin [Lo-Dose Aspirin EC] 81 mg PO DAILY 10/07/17 [History] Ferrous Sulfate [Iron] 325 mg PO DAILY 10/07/17 [History] Levothyroxine Sodium [Levoxyl] 50 mcg PO DAILY 10/07/17 [History] Ondansetron ODT [Zofran ODT] 4 mg SL Q8HR PRN #10 tab.rapdis 10/07/17 [Rx] Allergies/Adverse Reactions: 3 Allergy/AdvReac Type Severity Reaction Status Date / Time No Known Allergies Allergy Verified 10/07/17 10:45 Certification: Further, I certify that my clinical findings support that this patient is homebound (i.e. absences from home require considerable and taxing effort and are for medical reasons or episcopal services or infrequently or short duration when for other reasons) because: Homebound Reason: Patient requires assistance of a person or device to safely leave home, Leaving home requires considerable and taxing effort due to condition Attestation: My signature below is to certify that this patient is under my care and that I, or nurse practitioner, or a physician's printer assistant working with me, has a face-to -face encounter with this patient.
--- NOTE | 2017-10-08 16:48 | Electrocardiograph Report ---
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
[2017-10-09] MEDS: *HR* Heparin 5,000 UNIT/ML VIAL SQ SCH (03:52)
[2017-10-09 04:42] LABS: Hematocrit 32.5 % (35.3-44.9); Hemoglobin 10.6 g/dL (11.5-15.4); Mean Corpuscular HGB Conc 32.6 g/dL (31.6-35.5); Mean Corpuscular Hemoglobin 32.2 pg (28.0-33.3); Mean Corpuscular Volume 98.8 fL (83.0-100.0); Mean Platelet Volume 11.9 fL (9.4-12.4); Platelet Count 156 K/mcL (140-400); Red Blood Count 3.29 M/mcL (3.82-4.97); Red Cell Distribution Width 14.8 % (11.5-14.5)
[2017-10-09 07:32] VITALS: BP 107/69
[2017-10-09 08:03] LABS: Calcium 8.2 mg/dL (8.6-10.3); Potassium 3.6 mEq/L (3.5-5.1)
[2017-10-09] MEDS: Aspirin Enteric Coated 81 MG Tablet PO SCH (09:44)
--- NOTE | 2017-10-09 09:51 | Discharge Summary ---
<Didier Urbina - Last Filed: 10/09/17 09:47> Date of Encounter: 10/09/17 Time of Encounter: 09:47 - Discharge Diagnosis (1) Acute renal failure superimposed on chronic kidney disease Priority: Primary Status: Acute Qualifiers: Acute renal failure type: unspecified Chronic kidney disease stage: stage 4 (severe) Qualified Code(s): N17.9 - Acute kidney failure, unspecified; N18.4 - Chronic kidney disease, stage 4 (severe); N18.4 - Chronic kidney disease , stage 4 (severe); N18.4 - Chronic kidney disease, stage 4 (severe); N18.4 - Chronic kidney disease, stage 4 (severe) (2) Hyponatremia Priority: Secondary Status: Chronic (3) Decreased appetite Priority: Secondary Status: Acute (4) DVT prophylaxis Priority: Secondary Status: Acute (5) Metabolic acidosis Priority: Secondary Status: Ruled-out (6) Metastatic cancer Priority: Secondary Status: Chronic (7) Nausea & vomiting Priority: Secondary Status: Resolved Qualifiers: Vomiting type: unspecified Vomiting Intractability: non-intractable Qualified Code(s): R11.2 - Nausea with vomiting, unspecified - Discharge Medications Prescriptions: Ondansetron ODT [Zofran ODT] 4 mg SL Q6HR PRN #30 tab.rapdis PRN Reason: Nausea Promethazine [Phenergan] 12.5 mg PO Q6HR PRN #30 tablet PRN Reason: Nausea Megestrol Acetate [Megace] 40 mg PO DAILY #60 tablet Home Medications: Aspirin [Lo-Dose Aspirin EC] 81 mg PO DAILY 10/07/17 [History] Ferrous Sulfate [Iron] 325 mg PO DAILY 10/07/17 [History] Levothyroxine Sodium [Levoxyl] 50 mcg PO DAILY 10/07/17 [History] Ondansetron ODT [Zofran ODT] 4 mg SL Q8HR PRN #10 tab.rapdis 10/07/17 [Rx] Megestrol Acetate [Megace] 40 mg PO DAILY #60 tablet 10/09/17 [Rx] Ondansetron ODT [Zofran ODT] 4 mg SL Q6HR PRN #30 tab.rapdis 10/09/17 [Rx] Promethazine [Phenergan] 12.5 mg PO Q6HR PRN #30 tablet 10/09/17 [Rx] Allergies/Adverse Reactions: 3 Allergy/AdvReac Type Severity Reaction Status Date / Time No Known Allergies Allergy Verified 10/07/17 10:45 Date of admission: 10/07/17 13:59 Primary care physician: Reynaldo Mason Consults: 10/07/17 15:30 Consult to Nutrition [CONS] Routine Comment: Consulting Provider: NUTRITION Reason for Dietary Consult: MST Score 10/07/17 17:10 Consult to Palliative Care [CONS] Routine Comment: Consulting Provider: Palliative Care [place] Reason for Consult: stage 3 colon CA, continued weight loss N/V debility Time Notified: 17:11 Call Completed: No Discharging clinician: Didier Urbina Anticipated date of discharge: 10/09/17 - Patient Status Disposition: Home Health Service Condition: Fair Functional capacity at discharge: independent ambulation Overall status at discharge: patient is progressing back to baseline - Discharge Instructions Instructions: Acute Kidney Injury (DC), Urinary Tract Infection in Women (DC), Leukocytosis (DC) Follow Up With: Elvia Peña MD [Partnered Physician] - 10/21/17 8:10 am Yvonne Burnett CNP [Partnered Physician] - 10/16/17 10:00 am - Diet and Activity Activity: increase activity as tolerated Diet: regular diet Hospital course: Ms. Benito is a 67 year old female with history of metastatic colon cancer presented with chief complaint of decreased appetite, nausea, vomiting. Patient states she has had these symptoms for a few weeks. She has not been able to keep down food secondary to nausea/vomiting. She reports significantly weight loss since last April. On admission patient was found to have acute renal injury which was corrected with IV fluids. She also was found to be hyponatremic however this has been chronic and likely secondary to poor oral intake, nausea/vomiting. Patient was started on Megace for her decreased appetite in the setting of metastatic colon cancer. While inpatient she was able to tolerate a regular diet and did not have nausea or vomiting. She is able to have bowel movements and had no difficulty urinating. Patient states she will follow-up with Dr. Peña before deciding to go ahead with continuing chemotherapy. She was able to ambulate independently. Plan: Patient will be discharged with when necessary Zofran, when necessary Phenergan, Megace. She will have a follow-up appointment with her PCP and oncology. - Time Spent with Patient Total time spent providing and/or coordinating discharge services: - Constitutional Vitals: Temp Pulse Resp BP Pulse Ox 97.5 F L 64 16 107/69 100 10/09/17 07:30 10/09/17 07:30 10/09/17 07:30 10/09/17 07:30 10/09/17 07:30 General appearance: Present: A&O X 3, answers questions appropriately - Other Additional findings: General: Pleasant without distress HEENT: Head atraumatic, normocephalic, EOMI, PERRL, neck nontender to palpation , absent lymphadenopathy, Moist Mucous Membranes, Heart: Regular rate and rhythm with no murmur Lungs: Clear to auscultation bilaterally Abdomen: Soft nontender, nondistended positive bowel sounds Skin: warm and dry Extremities: Absent pedal edema Neuro: Cranial nerves II through XII intact, UE and LE sensation equal bilaterally, UE and LEstrength 5/5, alert oriented 3, Vascular: Pedal and radial pulses 2 out of 4 <Mandeep Matthew - Last Filed: 10/09/17 12:28> Date of Encounter: 10/09/17 Date of admission: 10/07/17 13:59 Primary care physician: Reynaldo Mason Consults: 10/07/17 15:30 Consult to Nutrition [CONS] Routine Comment: Consulting Provider: NUTRITION Reason for Dietary Consult: MST Score 10/07/17 17:10 Consult to Palliative Care [CONS] Routine Comment: Consulting Provider: Palliative Care [facility] Reason for Consult: stage 3 colon CA, continued weight loss N/V debility Time Notified: 17:11 Call Completed: No Hospital course: Ms. Benito is a 67 year old female - Time Spent with Patient Total time spent providing and/or coordinating discharge services: - Constitutional Vitals: Temp Pulse Resp BP Pulse Ox 97.5 F L 64 16 107/69 100 10/09/17 07:30 10/09/17 07:30 10/09/17 07:30 10/09/17 07:30 10/09/17 07:30 - Attending Attestation I have seen and independently examined this patient 10/09 and discussed the plan of care of the patient and the resident physician at the bedside. Readmitted for the 4th time in a month . Admitted this time for gastritis and SARA on CKD She has made significant improvement Physical exam is unremarkable Stable to be discharged home with home health Follow up with PCP and Oncology. Rest of details as in the resident physician's documentation
--- NOTE | 2017-10-09 09:52 | Event Note ---
Date of Encounter: 10/09/17 Time of Encounter: 09:00 Patient up in chair. States she ate pretty well for breakfast. No further vomiting. Denies pain or discomfort. Na 137, renal function improving. Will be set up for [facility] home[facility]/Palliative upon discharge. Social service also gave her information on obtaining delivered meals at home. Anticipate discharge soon if continues to improve. Palliative will follow at a distance. Tolerating Megace/Zofran and symptoms better controlled.
== END 2017-10-09 12:05 | disposition home health service (06) ==
LOC: 2ANU 10:01 → EMEROO 10:01 → SUATTDRO 13:59 → 2ANU 15:01
PROVIDERS: ADMIT Internal Medicine Nephrology; ATTEND Internal Medicine

== ENCOUNTER 2017-10-21 18:41 | Inpatient (IN) ==
[2017-10-21 20:18] LABS: Eosinophils % 1.2 %; Hematocrit 40.5 % (35.3-44.9); Hemoglobin 14.2 g/dL (11.5-15.4); Immature Granulocytes % 0.7 % (0-4); Lymphocytes % 7.9 %; Mean Corpuscular HGB Conc 35.1 g/dL (31.6-35.5); Mean Corpuscular Hemoglobin 31.3 pg (28.0-33.3); Mean Platelet Volume 10.8 fL (9.4-12.4); Monocytes % 6.4 %; Platelet Count 334 K/mcL (140-400); Red Blood Count 4.53 M/mcL (3.82-4.97); Red Cell Distribution Width 14.5 % (11.5-14.5); Segmented Neutrophils % 83.4 %
[2017-10-21 20:19] LABS: Basophils # 0.1 K/mcL (0.0-0.2); Basophils % 0.4 %; Eosinophils # 0.2 K/mcL (0.0-0.6); Lymphocytes # 1.1 K/mcL (0.6-4.6); Monocytes # 0.9 K/mcL (0.0-1.3); Neutrophils # 11.2 K/mcL (1.6-8.9)
[2017-10-21 20:31] LABS: Mean Corpuscular Volume 89.4 fL (83.0-100.0)
[2017-10-21 20:35] LABS: Calcium 9.7 mg/dL (8.6-10.3); Potassium 3.2 mEq/L (3.5-5.1)
--- NOTE | 2017-10-21 20:39 | Emergency Department Note ---
Disposition Clinical Impression: SARA (acute kidney injury), Hyponatremia, Weakness generalized UTI (urinary tract infection) Qualifiers: Urinary tract infection type: acute cystitis Hematuria presence: with hematuria Qualified Code(s): N30.01 - Acute cystitis with hematuria Disposition: Admitted As Inpatient Condition: Fair Referrals: Hilary Henriquez DO [Primary Care Provider] - Forms: ED Satisfaction Letter Time of Disposition: 22:28 Weakness HPI - General Chief complaint: ED Weakness Stated complaint: general weakness Time Seen by Provider: 10/21/17 20:10 Source: patient Mode of arrival: wheelchair Limitations: no limitations Nursing Notes Reviewed: Yes Vital Signs Reviewed: Yes - History of Present Illness HPI Narrative: Mrs. Benito is a 67-year-old woman with a history of GI cancer status post colectomy with colostomy, hypertension, repeated hospitalization for generalized weakness who appears at the ED for a complaint of generalized weakness. She says that has been going on for approximately 2 months but has been acutely worse in the past 3 weeks. She was discharged from the hospital about 3 weeks ago with an acute kidney injury. The patient is complaining that she has generally no energy, cannot walk very far without having to take a break , and is no appetite to eat any food. This has been getting worse and worse. She has no acute complaints or symptoms at this time. She has not had any fevers, chills, sweats, chest pains. She does admit to shortness of breath on occasion especially with exertion which is not new but is worse. She denies any nausea or vomiting. She also denies any urinary symptoms. Pain Scale: 0 - Related Data Previous Rx's Medication Instructions Recorded Promethazine [Phenergan] 12.5 mg PO Q6HR PRN #30 tablet 10/09/17 Allergies Allergy/AdvReac Type Severity Reaction Status Date / Time No Known Allergies Allergy Verified 10/07/17 10:45 Past Medical History - Past Medical History Medical history: Reports: cancer, hypertension, other Surgical history: Reports: cholecystectomy, colostomy Psychiatric history: Reports: no psych history - Social History Smoking Status: Never smoker Smokeless Tobacco Status: No Alcohol use: Reports: none Drug use: Reports: none Physical Exam - General Limitations: no limitations General appearance: alert, in no apparent distress Course Vital Signs Temperature 97.5 F L 10/21/17 19:02 Pulse Rate 87 10/21/17 19:02 Respiratory Rate 18 10/21/17 19:02 Blood Pressure 109/75 10/21/17 19:02 O2 Sat by Pulse Oximetry 100 10/21/17 19:02 Temperature 97.5 F L 10/21/17 19:02 Pulse Rate 83 10/21/17 21:32 Respiratory Rate 18 10/21/17 21:32 Blood Pressure 112/79 10/21/17 21:32 O2 Sat by Pulse Oximetry 99 10/21/17 21:32 Oxygen Delivery Oxygen Delivery Room Air Weakness - MDM Narrative Medical decision making narrative: I reviewed the patient's labs, imaging, medical records. On presentation the patient appears to be listless. The patient is incredibly pale, and she says that she is not even in weeks. Labs demonstrated the patient has a severe SARA that is worsened from previous. Additionally, the patient does have a hyponatremia and hypokalemia, likely secondary to malnutrition. Because the patient does have a GI cancer and has not had a CT of the head, I did decide to image the head in order to rule out any sort of mass that may be causing intracranial edema. I started the patient on maintenance fluids at that time, and when the CT of the head came back negative for any intracranial process I did determine that the patient should receive 500 mL bolus of normal saline. In that time the patient's UA did demonstrate that she had a serious UTI, for which I started Rocephin. She also had an elevated troponin at 0.04 which is likely secondary to demand ischemia in association with severe SARA, as EKG did not demonstrate any acute ischemia and she is not complaining of any chest pain or shortness of breath on exertion. Still, the patient does have increased fatigue and tires easily. I spoke with the hospitalist who agrees to accept this patient based on severe SARA, elevated troponins, hyponatremia. - Medical Records Medical records reviewed: Yes I reviewed the patient's medical records. - Lab Data Lab results reviewed: Yes I reviewed the patient's lab results. Result diagrams: 10/21/17 20:14 10/21/17 20:14 Lab Results 10/21/17 10/21/17 10/21/17 Range/Units 20:14 20:14 20:14 WBC 13.4 H (4.3-11.1) K/mcL RBC 4.53 (3.82-4.97) M/mcL Hgb 14.2 (11.5-15.4) g/dL Hct 40.5 (35.3-44.9) % MCV 89.4 D (83.0-100.0) fL MCH 31.3 (28.0-33.3) pg MCHC 35.1 (31.6-35.5) g/dL RDW 14.5 (11.5-14.5) % Plt Count 334 (140-400) K/mcL MPV 10.8 (9.4-12.4) fL Immature Gran % 0.7 (0-4) % Seg Neutrophils % 83.4 % Lymphocytes % 7.9 % Monocytes % 6.4 % Eosinophils % 1.2 % Basophils % 0.4 % Neutrophils # 11.2 H (1.6-8.9) K/mcL Lymphocytes # 1.1 (0.6-4.6) K/mcL Monocytes # 0.9 (0.0-1.3) K/mcL Eosinophils # 0.2 (0.0-0.6) K/mcL Basophils # 0.1 (0.0-0.2) K/mcL Sodium 123 L (136-145) mEq/L Potassium 3.2 L (3.5-5.1) mEq/L Chloride 88 L (98-107) mEq/L Carbon Dioxide 16 L (23-29) mEq/L BUN 120 H (8-23) mg/dL Creatinine 6.48 H (0.60-1.20) mg/dL Est GFR ( Amer) 8 L (> 60) Est GFR (Non-Af Amer) 6 L (> 60) BUN/Creatinine Ratio 19 (6-26) Glucose 119 H (70-105) mg/dL Calculated Osmolality 295 (280-300) Calcium 9.7 (8.6-10.3) mg/dL Troponin I 0.04 H* (< 0.04) ng/mL TSH (0.340-5.600) mcIU/mL Urine Color (Yellow) Urine Clarity (Clear) Urine pH (5.0-8.0) pH Units Ur Specific [place] (1.010-1.025) Urine Protein (Neg-Trace) mg/dL Urine Glucose (UA) (Normal) mg/dL Urine Ketones (Negative) mg/dL Urine Blood (Negative) Urine Nitrite (Negative) Urine Bilirubin (Negative) Urine Urobilinogen (Normal) mg/dL Ur Leukocyte Esterase (Negative) Urine Microscopic RBC (0-3) per hpf Urine Microscopic WBC (0-3) per hpf Ur Squamous Epith Cells (None-Few) per lpf Urine Bacteria (None-Few) per hpf Hyaline Casts (None-Few) per lpf Granular Casts (None Seen) per lpf Ur Culture Indicated? (NO) 10/21/17 10/21/17 Range/Units 20:20 20:45 WBC (4.3-11.1) K/mcL RBC (3.82-4.97) M/mcL Hgb (11.5-15.4) g/dL Hct (35.3-44.9) % MCV (83.0-100.0) fL MCH (28.0-33.3) pg MCHC (31.6-35.5) g/dL RDW (11.5-14.5) % Plt Count (140-400) K/mcL MPV (9.4-12.4) fL Immature Gran % (0-4) % Seg Neutrophils % % Lymphocytes % % Monocytes % % Eosinophils % % Basophils % % Neutrophils # (1.6-8.9) K/mcL Lymphocytes # (0.6-4.6) K/mcL Monocytes # (0.0-1.3) K/mcL Eosinophils # (0.0-0.6) K/mcL Basophils # (0.0-0.2) K/mcL Sodium (136-145) mEq/L Potassium (3.5-5.1) mEq/L Chloride (98-107) mEq/L Carbon Dioxide (23-29) mEq/L BUN (8-23) mg/dL Creatinine (0.60-1.20) mg/dL Est GFR ( Amer) (> 60) Est GFR (Non-Af Amer) (> 60) BUN/Creatinine Ratio (6-26) Glucose (70-105) mg/dL Calculated Osmolality (280-300) Calcium (8.6-10.3) mg/dL Troponin I (< 0.04) ng/mL TSH 2.870 (0.340-5.600) mcIU/mL Urine Color Yellow (Yellow) Urine Clarity Turbid A (Clear) Urine pH 5.0 (5.0-8.0) pH Units Ur Specific [place] 1.022 (1.010-1.025) Urine Protein 30 H (Neg-Trace) mg/dL Urine Glucose (UA) Normal (Normal) mg/dL Urine Ketones Negative (Negative) mg/dL Urine Blood Trace H (Negative) Urine Nitrite Negative (Negative) Urine Bilirubin Small H (Negative) Urine Urobilinogen Normal (Normal) mg/dL Ur Leukocyte Esterase Large H (Negative) Urine Microscopic RBC 5-15 H (0-3) per hpf Urine Microscopic WBC TNTC H (0-3) per hpf Ur Squamous Epith Cells Many H (None-Few) per lpf Urine Bacteria Moderate H (None-Few) per hpf Hyaline Casts Few (None-Few) per lpf Granular Casts Few H (None Seen) per lpf Ur Culture Indicated? NO. (NO) - Radiology Data Radiology results reviewed: Yes I reviewed the patient's radiology results. - EKG Data EKG attestation: Yes I reviewed and interpreted this EKG. Critical Care Time Critical Care Time: Yes Total Critical Care Time: 35 Attestation: Critical care time is 35 minutes managing patient's acute kidney injury and generalized weakness. Attestation Statement - Attestation Attestation: Patient was seen with resident physician. I reviewed the history, physical, assessment and plan, and agree with the findings. I also personally evaluated this patient and had [id number] time with this patient. 67-year-old female presents to the emergency department with generalized weakness. Patient states that she just feels wiped out the last several days. Progressively getting worse. She has been admitted multiple times for this and has not come up with any conclusive diagnoses. No history of heart failure. States that she has not been eating and drinking well. She is having a more difficult time getting around. She denies focal weakness nausea vomiting diarrhea or headaches or other complaints. On exam vital signs are stable. ENT is unremarkable. Heart regular rate. Lungs clear. Abdomen soft nontender. Extremities unremarkable with no swelling. Neurologically intact with no focal deficits. ED course chest x-ray did not reveal acute abnormalities. Patient was severely hyponatremic though and in acute renal failure. With this history of colon cancer wall skin had CT scans to make sure that is okay and does not have any metastases to that area. I will also started on a maintenance rate of IV fluids and contact the hospitalist to arrange for admission. I agree with resident physician assessment plan. Critical care time 35 minutes.
[2017-10-21] MEDS ORDERED: 0.9 % Sodium Chloride 1,000 ML IVC SCH (20:45)
[2017-10-21 21:00] LABS: Bilirubin,Urine Small (Negative); Blood,Urine Trace (Negative); Clarity,Urine Turbid (Clear); Color,Urine Yellow (Yellow); Glucose,Urine (UA) Normal (Normal); Ketones,Urine Negative (Negative); Leukocyte Esterase,Urine Large (Negative); Nitrite,Urine Negative (Negative); Protein,Urine 30 mg/dL (Neg-Trace); Specific Gravity,Urine 1.022 (1.010-1.025); Urobilinogen,Urine Normal (Normal)
[2017-10-21 21:02] LABS: Squamous Epithelial Cell,Urine Many per lpf (None-Few); WBC,Urine TNTC per hpf (0-3)
[2017-10-21 21:23] LABS: Granular Casts,Urine Few per lpf (None Seen); Hyaline Casts,Urine Few per lpf (None-Few)
[2017-10-21 21:24] LABS: Bacteria,Urine Moderate per hpf (None-Few)
[2017-10-21] MEDS ORDERED: 0.9 % Sodium Chloride 500 ML IVC ONE (22:02)
[2017-10-21] MEDS ORDERED: Naloxone 0.4 MG/ML INJ IVP PRN (22:41)
[2017-10-21] MEDS ORDERED: Ondansetron 4 MG/2 ML VIAL IVP PRN (22:41)
[2017-10-21] MEDS ORDERED: Acetaminophen 325 MG TABLET PO PRN (22:41)
[2017-10-21] MEDS ORDERED: *HR* Promethazine 25 MG/ML VIAL IVP PRN (22:50)
[2017-10-21] MEDS ORDERED: Potassium Chloride 40 MEQ, Lidocaine 1% 2 ML in D5% in Water 500 ML IVPB ONE (22:54)
[2017-10-21] MEDS: cefTRIAXone 2,000 MG in Water for inj. (sterile) 20 ML IVP SCH (23:01)
[2017-10-22] MEDS: 0.9 % Sodium Chloride 1,000 ML IVC SCH ×3 (00:07→23:13)
[2017-10-22 01:52] LABS: Magnesium 2.6 mg/dL (1.6-2.6); Potassium 3.6 mEq/L (3.5-5.1)
[2017-10-22 02:32] LABS: Basophils % 0.3 %; Eosinophils # 0.1 K/mcL (0.0-0.6); Eosinophils % 1.1 %; Hematocrit 36.9 % (35.3-44.9); Immature Granulocytes % 0.5 % (0-4); Immature Platelets 4.3 % (1.1-6.1); Lymphocytes # 1.1 K/mcL (0.6-4.6); Lymphocytes % 8.2 %; Mean Corpuscular HGB Conc 35.2 g/dL (31.6-35.5); Mean Corpuscular Hemoglobin 31.4 pg (28.0-33.3); Mean Corpuscular Volume 89.1 fL (83.0-100.0); Mean Platelet Volume 11.7 fL (9.4-12.4); Monocytes % 7.6 %; Neutrophils # 10.6 K/mcL (1.6-8.9); Platelet Count 223 K/mcL (140-400); Red Blood Count 4.14 M/mcL (3.82-4.97); Red Cell Distribution Width 14.3 % (11.5-14.5); Segmented Neutrophils % 82.3 %
[2017-10-22] MEDS: *HR* Heparin 5,000 UNIT/ML VIAL SQ SCH ×2 (05:02→16:55)
[2017-10-22 05:43] LABS: Calcium 8.6 mg/dL (8.6-10.3); Potassium 3.5 mEq/L (3.5-5.1)
--- NOTE | 2017-10-22 10:12 | Internal Med History&Physical ---
Date of Encounter: 10/21/17 Time of Encounter: 21:00 Assessment and Plan (1) UTI (urinary tract infection) Current visit: Yes Status: Acute Place pt on rocephin. F/U urine culture. Qualifiers: Urinary tract infection type: acute cystitis Hematuria presence: with hematuria Qualified Code(s): N30.01 - Acute cystitis with hematuria (2) SARA (acute kidney injury) Current visit: Yes Status: Acute Pt has significantly increased Cr level. She has signs of dehydration. Will give IVF. F/U renal function. - US renal to r/o obstruction. - Nephrology consult. (3) Metastatic cancer Current visit: No Status: Chronic Pt is following oncology as outpatient. (4) Weakness generalized Current visit: Yes Status: Chronic Pt has generalized weakness. Etiology is undetermined. Will consult tip cementer and PT/OT. (5) Nausea Current visit: No Status: Acute Will give symptomatic treatment. (6) DVT prophylaxis Current visit: No Status: Acute heparin sc Internal Medicine - H&P: HPI Chief complaint: Weakness Admitted From: Home Plans for Post Hospital Care: Transfer Shelter Facility History of present illness: Ms. Benito is a 67 year old female with hx of stage III colo cancer present to ER for generalized weakness. Pt was recently admitted for same reason. She has generally poor uptake. She even drink less water than usual. She is almost bedbound at home except occationally go bathroom with walker. She has nausea but no vomiting. No diarrhea. No fever. Pt denies chest pain, SOB. She has mild dry cough. Pt's family concern her status and called ambulance to sent pt here. In ER, she was found severe SARA and signs of dehydration. Past Med Surg Social Fam HX - Past Medical History Medical history: cancer, hypertension, other Psychiatric history: no psych history - Past Surgical History Surgical History: cholecystectomy, colostomy - Social History Smoking Status: Never smoker Smokeless Tobacco Status: No Alcohol use: none Drug use: none - Family History Mother Family Member Ethnicity: Non- Living Status: Hx Family Cardiac Disorders: No Hx Family Respiratory Disorders: No Hx Family Cancer: Yes Hx Family GI Disorders: No Hx Family Endocrine Disorder: No Hx Family Neuromuscular Disorders: No Hx Family Neurologic Disorders: No Hx Family HEENT Disorders: No Hx Family Autoimmune Disorders: No Father Family Member Ethnicity: Non- Living Status: Hx Family Cancer: Yes (Prostate) Brother Family Member Ethnicity: Non- Living Status: Still Living Internal Medicine - H&P: Meds Promethazine [Phenergan] 12.5 mg PO Q6HR PRN #30 tablet 10/09/17 [Rx] 3 Allergy/AdvReac Type Severity Reaction Status Date / Time No Known Allergies Allergy Verified 10/07/17 10:45 All Systems PM: A 10-system review of systems was performed and is negative for pertinent findings except as documented above in the HPI. - Constitutional Vitals: Temp Pulse Resp BP Pulse Ox 97.7 F 81 20 109/73 100 10/22/17 07:08 10/22/17 07:08 10/22/17 07:08 10/22/17 07:08 10/22/17 07:08 General appearance: Present: A&O X 3, no acute distress, answers questions appropriately - Head Head exam: Present: atraumatic, normocephalic - Eye Eye exam: Present: PERRL, conjuntiva pink, sclera anicteric Pupils: Present: PERRL - Neck Neck exam general surgery: Present: supple, trachea midline. Absent: lymphadenopathy - Respiratory Respiratory exam: Present: CTAB. Absent: accessory muscle use, rales, rhonchi, wheezes - Cardiovascular Cardiovascular exam: Present: RRR, +S1, +S2. Absent: diastolic murmur, gallop, rubs, systolic murmur - GI/Abdominal GI/Abdominal exam: Present: normal bowel sounds, soft, tenderness (Mild tenderness in 4Q), no peritoneal signs. Absent: distended - Extremities Exam Extremities exam: Present: warm, radial pulses palpable and symmetrical. Absent : calf tenderness, cyanotic, pedal edema - Neurological Exam Neurological exam: Present: CN II-XII intact, oriented X3, no focal deficits. Absent: pronater drift, facial droop, speech deficit - Skin Skin exam: Present: dry, intact Internal Med - H&P Results - Labs CBC & Chem 7: 10/22/17 02:07 10/22/17 05:02 Labs: Short CBC 10/22/17 Range/Units 02:07 WBC 12.9 H (4.3-11.1) K/mcL Hgb 13.0 (11.5-15.4) g/dL Hct 36.9 (35.3-44.9) % Plt Count 223 (140-400) K/mcL Neutrophils # 10.6 H (1.6-8.9) K/mcL BMP 10/22/17 10/22/17 00:27 05:02 Sodium 124 L 124 L Potassium 3.6 3.5 Chloride 94 L 96 L Carbon Dioxide 9 L* 12 L BUN 115 H 113 H Creatinine 6.18 H 5.81 H Glucose 105 107 H Calcium 9.0 8.6 Cardiac Enzymes 10/22/17 10/22/17 Range/Units 00:27 05:02 Troponin I 0.03 0.04 H* (< 0.04) ng/mL - Impressions ITS Impressions Retroperitoneum Ultrasound 10/22/17 09:00 IMPRESSION: Redemonstration of fatty lesion to the upper pole of the left kidney unchanged from prior CT exams and compatible with benign lesion, likely angiomyolipoma. Kidneys are otherwise unremarkable. Nonvisualization of the urinary bladder. D/ / Howie Al MD / Howie Al MD Interpreting Provider: Howie Al MD
--- NOTE | 2017-10-22 12:20 | Nephrology Consult Note ---
<Gayla Hassan - Last Filed: 10/22/17 12:32> Date of Encounter: 10/22/17 Time of Encounter: 12:15 Assessment and Plan (1) Acute renal failure superimposed on chronic kidney disease Status: Acute Scr 5.81, GFR 7, yesterday Scr 6.48, GFR 6 Baseline Scr appears to be 1.70 and GFR 20-30, however patient had normal kidney function as late as July 2017 Patient was suppose to follow up in the office after previous hospitalizations showing decreased kidney function but patient states she did not follow up. Agree with IV fluids Strict I/Os UOP today 200ml so far Renal ultrasound shows fatty lesion upper pole left kidney, unchanged from previous scans Will proceed with the SARA workup to include urine sodium, urine creatinine, urine eosinophils, CPK, protein/creatinine ratio and uric acid Will watch kidney function closely; must f/u in office after discharge. Qualifiers: Acute renal failure type: unspecified Chronic kidney disease stage: stage 4 (severe) Qualified Code(s): N17.9 - Acute kidney failure, unspecified; N18.4 - Chronic kidney disease, stage 4 (severe); N18.4 - Chronic kidney disease , stage 4 (severe); N18.4 - Chronic kidney disease, stage 4 (severe); N18.4 - Chronic kidney disease, stage 4 (severe) (2) Weakness generalized Status: Chronic per primary team (3) Metastatic colon cancer in female Status: Acute per primary/oncology team (4) UTI (urinary tract infection) Status: Acute per primary team Qualifiers: Urinary tract infection type: acute cystitis Hematuria presence: with hematuria Qualified Code(s): N30.01 - Acute cystitis with hematuria History of Present Illness - Reason for Consult Consult date: 10/22/17 Acute Kidney Injury, Chronic Kidney Disease - Chief Complaint SARA on CKD, metastatic cancer, dehydratation - History of Present Illness Ms. Benito is a 67 year old female with PMH of stage III colon cancer and HTN who present to ER for generalized weakness. She is almost bedbound at home except occationally go bathroom with walker. She has nausea and poor intake but no vomiting, no diarrhea. No fever. In ER, she was found severe SARA and signs of dehydration. Review of old labs show normal kidney function up until August 2017; since then her baseline has been Scr of 1.7 and GFR between 20-30. Patient states she has never seen a metal hardener however her sees Dr Dominique. Past Med Surg Social Fam HX - Past Medical History Medical history: cancer, hypertension, other Psychiatric history: no psych history - Past Surgical History Surgical History: cholecystectomy, colostomy - Social History Smoking Status: Never smoker Smokeless Tobacco Status: No Alcohol use: none Drug use: none - Family History Mother Family Member Ethnicity: Non- Living Status: Hx Family Cardiac Disorders: No Hx Family Respiratory Disorders: No Hx Family Cancer: Yes Hx Family GI Disorders: No Hx Family Endocrine Disorder: No Hx Family Neuromuscular Disorders: No Hx Family Neurologic Disorders: No Hx Family HEENT Disorders: No Hx Family Autoimmune Disorders: No Father Family Member Ethnicity: Non- Living Status: Hx Family Cancer: Yes (Prostate) Brother Family Member Ethnicity: Non- Living Status: Still Living Medications and Allergies Promethazine [Phenergan] 12.5 mg PO Q6HR PRN #30 tablet 10/09/17 [Rx] Megestrol Acetate [Megace] 400 mg PO DAILY 30 Days udc 10/26/17 [Rx] Sodium Bicarbonate 650 mg PO TID #60 tablet 10/26/17 [Rx] 3 Allergy/AdvReac Type Severity Reaction Status Date / Time No Known Allergies Allergy Verified 10/07/17 10:45 Review of Systems All Systems: reviewed and no additional remarkable complaints except as stated Constitutional: malaise, weakness ( ), no fever(s) Cardiovascular: no chest pain, no dyspnea Respiratory: no dyspnea Gastrointestinal: no diarrhea, no vomiting Neurological: weakness, no behavioral changes Exam - Vital Signs Vital signs: Initial Vital Signs Temp Pulse Resp BP Pulse Ox 97.5 F L 87 18 109/75 100 10/21/17 19:02 10/21/17 19:02 10/21/17 19:02 10/21/17 19:02 10/21/17 19:02 Vital Signs - Last 8 Hours Temp Pulse Resp BP Pulse Ox 10/22/17 11:14 97.3 F L 76 19 99/63 100 10/22/17 07:08 97.7 F 81 20 109/73 100 Intake and Output 10/21/17 10/22/17 10/22/17 23:59 07:59 15:59 Intake Total 20 / 20 120 / 120 Output Total 250 / 250 Balance / 20 -250 / -250 120 / 120 Intake: IV Fluids Rocephin 2,000 MG In Water for inj. (sterile) 20 ML @ 600 mls/ hr IVP Q24H [facility] Rx#:[id number] Oral 120 / 120 Output: Urine 200 / 200 Stool 50 / 50 Other: Meal Breakfast Percent of Meal Consumed 0% Weight 68.991 kg Patient Weight 10/22/17 23:59 Weight 68.991 kg - General Appearance General appearance: well-developed, well-nourished EENT: ATNC, mucous membranes moist, hearing intact, vision intact Neck: supple Respiratory: clear Cardiology: no edema, normal S1, normal S2 Gastrointestinal: no tenderness, no guarding Integumentary: warm and dry Neurologic: alert and oriented x3 Psychiatric: mood/affect appropriate, cooperative Results - Lab Results 10/22/17 02:07 10/22/17 10:55 Most recent lab results Calcium 8.6 mg/dL (8.6-10.3) 10/22/17 05:02 Magnesium 2.6 mg/dL (1.6-2.6) 10/22/17 00:27 Consult Discharge Plan - Plan Additional Instructions: F/up with PCP in 1-2 weeks F/up with [facility] in 4-6 weeks- Referrals: Hilary Henriquez DO [Primary Care Provider] - (web request 10/22/2017) Prescriptions: Megestrol Acetate [Megace] 400 mg PO DAILY 30 Days udc Sodium Bicarbonate 650 mg PO TID #60 tablet <Jj Jamison - Last Filed: 11/03/17 23:09> Date of Encounter: 10/22/17 Exam - Vital Signs Vital signs: Initial Vital Signs Temp Pulse Resp BP Pulse Ox 97.5 F L 87 18 109/75 100 10/21/17 19:02 10/21/17 19:02 10/21/17 19:02 10/21/17 19:02 10/21/17 19:02 Results - Lab Results 10/25/17 05:24 10/26/17 07:57 Most recent lab results Calcium 8.9 mg/dL (8.6-10.3) 10/26/17 07:57 Magnesium 1.7 mg/dL (1.6-2.6) 10/26/17 07:57 - Attending Attestation I examined this patient and my medical decision-making was reviewed with the Resident Physician. I agree with the documented findings, disposition and treatment plan as described except to the extent set forth below. Pt seen and examined and in brief, 67 y o female known to me from taking care of her 's CKD and also on previous hospital stay with SARA. She has a history of colon cancer with last chemo a couple months ago after recurrent bouts of AKIs presenting once more for an even more severe elevation in SCr above 6. SCr already improving with IVF indicative of a volume problem which has been an ongoing issue with decreased po intake overall and bouts of nausea and vomiting. Will continue aggressive volume repletion and initiate SARA workup. 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
[2017-10-22 12:25] LABS: Calcium 8.8 mg/dL (8.6-10.3); Potassium 4.1 mEq/L (3.5-5.1)
[2017-10-22 18:05] LABS: Uric Acid 16.1 mg/dL (2.3-7.6)
--- NOTE | 2017-10-22 20:07 | Electrocardiograph Report ---
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
[2017-10-22] MEDS: cefTRIAXone 2,000 MG in Water for inj. (sterile) 20 ML IVP SCH (23:13)
[2017-10-22] MEDS: cefTRIAXone 2,000 MG in 0.9 % Sodium Chloride Mini Bag 100 ML IVP SCH (23:39)
[2017-10-23] MEDS: *HR* Heparin 5,000 UNIT/ML VIAL SQ SCH ×2 (05:04→15:59)
[2017-10-23] MEDS: 0.9 % Sodium Chloride 1,000 ML IVC SCH ×3 (05:04→20:15)
[2017-10-23 06:55] LABS: Calcium 8.2 mg/dL (8.6-10.3); Magnesium 2.2 mg/dL (1.6-2.6); Potassium 3.2 mEq/L (3.5-5.1)
[2017-10-23 07:21] LABS: Basophils # 0.1 K/mcL (0.0-0.2); Basophils % 0.7 %; Eosinophils # 0.2 K/mcL (0.0-0.6); Eosinophils % 3.2 %; Hematocrit 31.5 % (35.3-44.9); Immature Granulocytes % 0.7 % (0-4); Lymphocytes # 0.6 K/mcL (0.6-4.6); Lymphocytes % 9.3 %; Mean Corpuscular Hemoglobin 31.3 pg (28.0-33.3); Mean Corpuscular Volume 92.1 fL (83.0-100.0); Mean Platelet Volume 11.3 fL (9.4-12.4); Monocytes # 0.6 K/mcL (0.0-1.3); Monocytes % 8.4 %; Neutrophils # 5.4 K/mcL (1.6-8.9); Platelet Count 168 K/mcL (140-400); Red Blood Count 3.42 M/mcL (3.82-4.97); Red Cell Distribution Width 14.3 % (11.5-14.5); Segmented Neutrophils % 77.7 %
[2017-10-23 07:52] LABS: Hemoglobin 10.7 g/dL (11.5-15.4)
--- NOTE | 2017-10-23 12:23 | Internal Med Progress Note ---
Date of Encounter: 10/22/17 Time of Encounter: 17:30 - Assessment and plan (1) Failure to thrive in adult Current Visit: Yes Status: Chronic Assessment and plan: Patient has had multiple recent admissions with similar complaints. Likely related to underlying metastatic colon cancer. Continue supportive care with IV hydration, when necessary antiemetics, diet as tolerated. (2) SARA (acute kidney injury) Current Visit: Yes Status: Acute Assessment and plan: Likely prerenal due to poor oral intake and failure to thrive. Also noted to have metabolic acidosis. Continue IV hydration. Serum sodium noted to be improving, 124 today. Serum creatinine improving, 5.5 today. Nephrology on board, appreciate recommendations. (3) UTI (urinary tract infection) Current Visit: Yes Status: Acute Assessment and plan: Continue IV Rocephin. Follow up urine culture. Qualifiers: Urinary tract infection type: acute cystitis Hematuria presence: with hematuria Qualified Code(s): N30.01 - Acute cystitis with hematuria (4) Hyponatremia Current Visit: Yes Status: Acute Assessment and plan: Due to poor oral intake, hypovolemic. Continue IV hydration, currently improving. (5) Metastatic colon cancer in female Current Visit: Yes Status: Chronic Assessment and plan: Does follow with oncology as outpatient, could not follow-up recently due to multiple recurrent hospitalizations. Status post partial colectomy with colostomy. Has been on chemotherapy, stopped as she could not tolerate it. Unclear plan as of now. - Subjective Interval history: Reports poor appetite, generalized weakness, nausea; somewhat better but still has similar complaints; - Constitutional Vitals: Temp Pulse Resp BP Pulse Ox 97.7 F 77 18 93/57 100 10/23/17 10:56 10/23/17 10:56 10/23/17 10:56 10/23/17 10:56 10/23/17 10:56 General appearance: Present: A&O X 3, no acute distress, answers questions appropriately - Respiratory Respiratory exam: Present: CTAB. Absent: accessory muscle use, rales, rhonchi, wheezes - Cardiovascular Cardiovascular exam: Present: RRR, +S1, +S2. Absent: diastolic murmur, gallop, rubs, systolic murmur - GI/Abdominal GI/Abdominal exam: Present: normal bowel sounds, soft, no peritoneal signs. Absent: distended, tenderness - Extremities Exam Extremities exam: Present: full ROM, pedal edema, warm, radial pulses palpable and symmetrical. Absent: calf tenderness, cyanotic - Neurological Exam Neurological exam: Present: CN II-XII intact, oriented X3, no focal deficits. Absent: pronater drift, facial droop, speech deficit - Skin Skin exam: Present: dry, intact Internal Medicine: Result - Labs CBC & Chem 7: 10/24/17 05:24 10/24/17 05:45 Labs: Short CBC 10/23/17 Range/Units 05:54 WBC 6.9 (4.3-11.1) K/mcL Hgb 10.7 L D (11.5-15.4) g/dL Hct 31.5 L (35.3-44.9) % Plt Count 168 (140-400) K/mcL Neutrophils # 5.4 (1.6-8.9) K/mcL BMP 10/22/17 10/23/17 10:55 05:54 Sodium 124 L 129 L Potassium 4.1 3.2 L Chloride 96 L 103 Carbon Dioxide 12 L 17 L BUN 114 H 98 H Creatinine 5.54 H 4.51 H Glucose 106 H 89 Calcium 8.8 8.2 L Consult Discharge Plan - Plan Referrals: Hilary Henriquez DO [Primary Care Provider] - (web request 10/22/2017)
--- NOTE | 2017-10-23 12:42 | Internal Med Progress Note ---
Date of Encounter: 10/23/17 Time of Encounter: 12:40 - Assessment and plan (1) Failure to thrive in adult Status: Chronic Assessment and plan: Patient has had multiple recent admissions with similar complaints. Likely related to underlying metastatic colon cancer. Continue supportive care with IV hydration, when necessary antiemetics, diet as tolerated. (2) SARA (acute kidney injury) Status: Acute Assessment and plan: Likely prerenal due to poor oral intake and failure to thrive. Also noted to have metabolic acidosis. Continue IV hydration. Serum sodium noted to be improving, 129 today. Serum creatinine improving, 4.5 today. Nephrology on board, appreciate recommendations. (3) UTI (urinary tract infection) Status: Suspected Assessment and plan: Continue IV Rocephin. Follow up urine culture. Qualifiers: Urinary tract infection type: acute cystitis Hematuria presence: with hematuria Qualified Code(s): N30.01 - Acute cystitis with hematuria (4) Hyponatremia Status: Acute (5) Metastatic colon cancer in female Status: Chronic Assessment and plan: Does follow with oncology as outpatient, could not follow-up recently due to multiple recurrent hospitalizations. Status post partial colectomy with colostomy. Has been on chemotherapy, stopped as she could not tolerate it. Unclear plan as of now. (6) Hypokalemia Status: Acute Assessment and plan: Likely due to poor oral intake. Supplement with oral potassium chloride, check magnesium. - Subjective Interval history: Feels better, overall depressed but answers appropriately; has some urine output ; tries to eat all of her meals and fluids, but has trouble with nausea and poor appetite, she does not feel Megaace is helping her; - Constitutional Vitals: Temp Pulse Resp BP Pulse Ox 97.7 F 77 18 93/57 100 10/23/17 10:56 10/23/17 10:56 10/23/17 10:56 10/23/17 10:56 10/23/17 10:56 General appearance: Present: A&O X 3, no acute distress, answers questions appropriately - Respiratory Respiratory exam: Present: CTAB. Absent: accessory muscle use, rales, rhonchi, wheezes - Cardiovascular Cardiovascular exam: Present: RRR, +S1, +S2. Absent: diastolic murmur, gallop, rubs, systolic murmur - GI/Abdominal GI/Abdominal exam: Present: normal bowel sounds, soft, no peritoneal signs. Absent: distended, tenderness - Extremities Exam Extremities exam: Present: full ROM, pedal edema, warm, radial pulses palpable and symmetrical. Absent: calf tenderness, cyanotic Internal Medicine: Result - Labs CBC & Chem 7: 10/25/17 05:24 10/26/17 07:57 Labs: Short CBC 10/23/17 Range/Units 05:54 WBC 6.9 (4.3-11.1) K/mcL Hgb 10.7 L D (11.5-15.4) g/dL Hct 31.5 L (35.3-44.9) % Plt Count 168 (140-400) K/mcL Neutrophils # 5.4 (1.6-8.9) K/mcL BMP 10/22/17 10/23/17 10:55 05:54 Sodium 124 L 129 L Potassium 4.1 3.2 L Chloride 96 L 103 Carbon Dioxide 12 L 17 L BUN 114 H 98 H Creatinine 5.54 H 4.51 H Glucose 106 H 89 Calcium 8.8 8.2 L Consult Discharge Plan - Plan Additional Instructions: F/up with PCP in 1-2 weeks F/up with [facility] in 4-6 weeks- Referrals: Hilary Henriquez DO [Primary Care Provider] - (web request 10/22/2017) Prescriptions: Megestrol Acetate [Megace] 400 mg PO DAILY 30 Days udc Sodium Bicarbonate 650 mg PO TID #60 tablet
--- NOTE | 2017-10-23 13:30 | Nephrology Progress Note ---
<Gabriel Lucas - Last Filed: 10/23/17 14:13> Date of Encounter: 10/23/17 Time of Encounter: 13:27 - Assessment and Plan (1) Acute renal failure superimposed on chronic kidney disease Status: Acute SARA on apparent CKD, likely stage IV however the patient had normal renal function as late as July 2017 so it is unclear as to the chronicity of her renal disease. Serum creatinine has been improving, agree with IV fluids. Uric acid was significantly elevated likely indicative of hypovolemia, this is trending down, we will continue to trend uric acid daily as a surrogate marker for volume status. Strict I's and O's. Continue with renal protective strategy by avoiding nephrotoxins and dosing medications based on GFR. Qualifiers: Acute renal failure type: unspecified Chronic kidney disease stage: stage 4 (severe) Qualified Code(s): N17.9 - Acute kidney failure, unspecified; N18.4 - Chronic kidney disease, stage 4 (severe); N18.4 - Chronic kidney disease , stage 4 (severe); N18.4 - Chronic kidney disease, stage 4 (severe); N18.4 - Chronic kidney disease, stage 4 (severe) (3) Anemia Status: Acute Hemoglobin is down to 10.7 today. Was 14.2 on admission her this is likely related to hemoconcentration in setting of hypovolemia. We will check iron panel. Qualifiers: Anemia type: unspecified type Qualified Code(s): D64.9 - Anemia, unspecified (4) Hyponatremia Status: Chronic Likely hypovolemic in the setting of severe dehydration. Has been slowly improving with fluid hydration. Agree with continuing IV fluids and encouraging by mouth intake. Continue to monitor sodium daily. (5) Hypokalemia Status: Acute Agree with replacement per primary. (6) UTI (urinary tract infection) Status: Acute Management per primary Qualifiers: Urinary tract infection type: acute cystitis Hematuria presence: with hematuria Qualified Code(s): N30.01 - Acute cystitis with hematuria (7) Metastatic colon cancer in female Status: Acute Subjective Principal diagnosis: Weakness Interval history: Patient seen and examined at bedside. She states that she feels slightly better today. Her appetite is diminished but she is trying to increase her by mouth intake. She feels like her strength is slightly better. She denies fever , chills, chest pain, shortness of breath, nausea, vomiting. Objective - Vital Signs Vital signs: Vital Signs Temp Pulse Resp BP Pulse Ox 10/23/17 10:56 97.7 F 77 18 93/57 100 10/23/17 07:50 98.1 F 69 18 111/65 98 10/23/17 04:37 97.9 F 74 18 108/65 100 10/22/17 23:23 97.6 F 70 18 104/67 100 10/22/17 19:46 97.6 F 75 18 101/67 100 10/22/17 17:01 97.3 F L 74 19 101/68 100 Intake and Output 10/22/17 10/23/17 10/23/17 23:59 07:59 15:59 Intake Total 1000 / 1000 1310 / 1310 Output Total 200 / 200 500 / 500 1050 / 1050 Balance 800 / 800 -500 / -500 260 / 260 Intake: IV Fluids 1000 / 1000 950 / 950 0.9 % Sodium Chloride 1,000 ML 1000 / 1000 950 / 950 @ 100 mls/hr IVC .Q10H [facility] Rx#: [id number] Oral 360 / 360 Output: Urine 200 / 200 750 / 750 Stool 500 / 500 300 / 300 Other: Meal Breakfast Percent of Meal Consumed 50% Stool Size Small Stool Consistency loose liquid Stool Color Green Brown Green Weight 72.66 kg Patient Weight 10/23/17 23:59 Weight 72.66 kg - General Appearance General appearance: Present: well-developed, well-nourished, appears started age EENT: Present: ATNC, mucous membranes moist Neck: Present: supple Respiratory: Present: clear Cardiology: Present: no murmurs, no rub, no gallops, regular rate, regular rhythm Gastrointestinal: Present: normoactive bowel sounds, no tenderness, no guarding Integumentary: Present: no rash, warm and dry Neurologic: Present: no focal deficit, alert and oriented x3 Musculoskeletal: Present: no deformities, no cyanosis, no clubbing - Lab 10/23/17 05:54 10/23/17 05:54 Most recent lab results Calcium 8.2 mg/dL (8.6-10.3) L 10/23/17 05:54 Magnesium 2.2 mg/dL (1.6-2.6) 10/23/17 05:54 Consult Discharge Plan - Plan Additional Instructions: F/up with PCP in 1-2 weeks F/up with [facility] in 4-6 weeks- Referrals: Hilary Henriquez DO [Primary Care Provider] - (web request 10/22/2017) Prescriptions: Megestrol Acetate [Megace] 400 mg PO DAILY 30 Days udc Sodium Bicarbonate 650 mg PO TID #60 tablet <Jj Jamison - Last Filed: 11/25/17 00:51> Date of Encounter: 10/23/17 Objective - Lab 10/25/17 05:24 10/26/17 07:57 Most recent lab results Calcium 8.9 mg/dL (8.6-10.3) 10/26/17 07:57 Magnesium 1.7 mg/dL (1.6-2.6) 10/26/17 07:57 - Attending Attestation I examined this patient and my medical decision-making was reviewed with the Resident Physician. I agree with the documented findings, disposition and treatment plan as described except to the extent set forth below. Pt seen and examined feeling a little better but appetite remains poor. SARA on presumed CKD (baseline unclear after repeated AKIs in the recent past) likely hypovolemia related. SCr already improving with IVF. sodium also improving. workup so far point towards hypovolemia as well. Continue to avoid nephrotoxins if possible. 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
[2017-10-23 14:06] LABS: Uric Acid 13.6 mg/dL (2.3-7.6)
[2017-10-23] MEDS: Megestrol Acetate 400 MG/10 ML UDC PO SCH (14:51)
[2017-10-24] MEDS: cefTRIAXone 2,000 MG in 0.9 % Sodium Chloride Mini Bag 100 ML IVP SCH ×2 (00:36→23:20)
[2017-10-24] MEDS: *HR* Heparin 5,000 UNIT/ML VIAL SQ SCH ×2 (04:44→17:48)
[2017-10-24 06:01] LABS: Basophils % 0.4 %; Eosinophils # 0.2 K/mcL (0.0-0.6); Eosinophils % 3.4 %; Hemoglobin 9.8 g/dL (11.5-15.4); Immature Granulocytes % 0.6 % (0-4); Lymphocytes # 0.7 K/mcL (0.6-4.6); Lymphocytes % 14.3 %; Mean Corpuscular HGB Conc 33.8 g/dL (31.6-35.5); Mean Corpuscular Hemoglobin 31.1 pg (28.0-33.3); Mean Corpuscular Volume 92.1 fL (83.0-100.0); Mean Platelet Volume 11.1 fL (9.4-12.4); Monocytes # 0.5 K/mcL (0.0-1.3); Monocytes % 8.9 %; Neutrophils # 3.6 K/mcL (1.6-8.9); Platelet Count 149 K/mcL (140-400); Red Blood Count 3.15 M/mcL (3.82-4.97); Red Cell Distribution Width 14.5 % (11.5-14.5); Segmented Neutrophils % 72.4 %
[2017-10-24 08:02] LABS: Calcium 7.8 mg/dL (8.6-10.3); Uric Acid 11.4 mg/dL (2.3-7.6)
[2017-10-24] MEDS: Megestrol Acetate 400 MG/10 ML UDC PO SCH (09:13)
[2017-10-24] MEDS: 0.9 % Sodium Chloride 1,000 ML IVC SCH ×2 (09:13→20:36)
--- NOTE | 2017-10-24 14:51 | Nephrology Progress Note ---
<Gabriel Lucas - Last Filed: 10/24/17 14:52> Date of Encounter: 10/24/17 Time of Encounter: 14:49 - Assessment and Plan (1) Acute renal failure superimposed on chronic kidney disease Status: Acute SARA on apparent CKD, likely stage IV however the patient had normal renal function as late as July 2017 so it is unclear as to the chronicity of her renal disease. Serum creatinine continues to improve, agree with IV fluids. Uric acid was significantly elevated likely indicative of hypovolemia, this is trending down, we will continue to trend uric acid daily as a surrogate marker for volume status. Strict I's and O's. Continue with renal protective strategy by avoiding nephrotoxins and dosing medications based on GFR. Qualifiers: Acute renal failure type: unspecified Chronic kidney disease stage: stage 4 (severe) Qualified Code(s): N17.9 - Acute kidney failure, unspecified; N18.4 - Chronic kidney disease, stage 4 (severe); N18.4 - Chronic kidney disease , stage 4 (severe); N18.4 - Chronic kidney disease, stage 4 (severe); N18.4 - Chronic kidney disease, stage 4 (severe) (3) Anemia Status: Acute Hemoglobin is down to 10.7 today. Was 14.2 on admission her this is likely related to hemoconcentration in setting of hypovolemia. We will check iron panel. Qualifiers: Anemia type: unspecified type Qualified Code(s): D64.9 - Anemia, unspecified (4) Hyponatremia Status: Chronic Likely hypovolemic in the setting of severe dehydration. Has been slowly improving with fluid hydration. Agree with continuing IV fluids and encouraging by mouth intake. Continue to monitor sodium daily. (5) Hypokalemia Status: Acute Agree with replacement per primary. (6) UTI (urinary tract infection) Status: Acute Management per primary Qualifiers: Urinary tract infection type: acute cystitis Hematuria presence: with hematuria Qualified Code(s): N30.01 - Acute cystitis with hematuria (7) Metastatic colon cancer in female Status: Acute Subjective Principal diagnosis: Weakness Interval history: Patient seen and examined at bedside. She states that she feels slightly better today. Her appetite is diminished but she reports being able to increase her by mouth intake. She feels like her strength is slightly better. She denies fever, chills, chest pain, shortness of breath, nausea, vomiting. Objective - Vital Signs Vital signs: Vital Signs Temp Pulse Resp BP Pulse Ox 10/24/17 10:55 97.3 F L 77 17 115/69 100 10/24/17 07:37 97.5 F L 90 17 109/68 100 10/24/17 03:54 97.5 F L 83 18 99/64 98 10/23/17 23:53 97.7 F 73 18 105/66 98 10/23/17 19:07 97.6 F 77 18 106/69 100 10/23/17 15:49 97.6 F 83 18 107/68 99 Intake and Output 10/23/17 10/24/17 10/24/17 23:59 07:59 15:59 Intake Total 1000 / 1000 1000 / 1000 Output Total 350 / 350 Balance 1000 / 1000 1000 / 1000 -350 / -350 Intake: IV Fluids 1000 / 1000 1000 / 1000 0.9 % Sodium Chloride 1,000 ML 1000 / 1000 1000 / 1000 @ 100 mls/hr IVC .Q10H [facility] Rx#: [id number] Oral 0 / 0 Output: Urine 350 / 350 Other: Stool Size Moderate Stool Consistency liquid Stool Color Brown # Bowel Movements 1 Weight 74.503 kg Patient Weight 10/24/17 23:59 Weight 74.503 kg - General Appearance General appearance: Present: well-developed, well-nourished, appears started age EENT: Present: ATNC, mucous membranes moist Neck: Present: supple Respiratory: Present: clear Cardiology: Present: no murmurs, no rub, no gallops, edema, regular rate, regular rhythm Gastrointestinal: Present: normoactive bowel sounds, no tenderness, no guarding Integumentary: Present: no rash, warm and dry Neurologic: Present: no focal deficit, alert and oriented x3 Musculoskeletal: Present: no cyanosis, no clubbing - Lab 10/24/17 05:24 10/24/17 05:45 Most recent lab results Calcium 7.8 mg/dL (8.6-10.3) L 10/24/17 05:45 Magnesium 2.2 mg/dL (1.6-2.6) 10/23/17 05:54 Consult Discharge Plan - Plan Additional Instructions: F/up with PCP in 1-2 weeks F/up with [facility] in 4-6 weeks- Referrals: iHlary Henriquez DO [Primary Care Provider] - (web request 10/22/2017) Prescriptions: Megestrol Acetate [Megace] 400 mg PO DAILY 30 Days udc Sodium Bicarbonate 650 mg PO TID #60 tablet <Jj Jamison Laine - Last Filed: 12/06/17 09:12> Date of Encounter: 10/24/17 Objective - Lab 10/25/17 05:24 10/26/17 07:57 Most recent lab results Calcium 8.9 mg/dL (8.6-10.3) 10/26/17 07:57 Magnesium 1.7 mg/dL (1.6-2.6) 10/26/17 07:57 - Attending Attestation I examined this patient and my medical decision-making was reviewed with the Resident Physician. I agree with the documented findings, disposition and treatment plan as described except to the extent set forth below. Pt seen and examined. SCr improving likely from pre-renal state, continue fluids.Continue to avoid nephrotoxins if possible. 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
[2017-10-24] MEDS: Potassium Chloride Elixir 20 MEQ/15 ML UDC PO SCH ×2 (17:49→19:40)
--- NOTE | 2017-10-24 18:10 | Internal Med Progress Note ---
Date of Encounter: 10/24/17 Time of Encounter: 12:30 - Assessment and plan (1) Failure to thrive in adult Status: Chronic Assessment and plan: Patient has had multiple recent admissions with similar complaints. Likely related to underlying metastatic colon cancer. Continue supportive care with IV hydration, when necessary antiemetics, diet as tolerated. Will consider Megace; (2) SARA (acute kidney injury) Status: Acute Assessment and plan: Likely prerenal due to poor oral intake and failure to thrive. Also noted to have metabolic acidosis. Continue IV hydration. Serum sodium noted to be improving. Serum creatinine improving, 3.5 today. Nephrology on board, appreciate recommendations. (3) UTI (urinary tract infection) Status: Ruled-out Assessment and plan: Urine culture shows no significant growth. Hold off antibiotics. Qualifiers: Urinary tract infection type: acute cystitis Hematuria presence: with hematuria Qualified Code(s): N30.01 - Acute cystitis with hematuria (4) Hyponatremia Status: Resolved (5) Metastatic colon cancer in female Status: Chronic - Subjective Interval history: Reports poor appetite, generalized weakness, nausea; somewhat better but still has similar complaints; - Constitutional Vitals: Temp Pulse Resp BP Pulse Ox 97.5 F L 88 16 101/62 99 10/24/17 15:20 10/24/17 15:20 10/24/17 15:20 10/24/17 15:20 10/24/17 15:20 General appearance: Present: A&O X 3, no acute distress, answers questions appropriately - Respiratory Respiratory exam: Present: CTAB. Absent: accessory muscle use, rales, rhonchi, wheezes - Cardiovascular Cardiovascular exam: Present: RRR, +S1, +S2. Absent: diastolic murmur, gallop, rubs, systolic murmur - GI/Abdominal GI/Abdominal exam: Present: normal bowel sounds, soft (Colostomy in place), no peritoneal signs. Absent: distended, tenderness Internal Medicine: Result - Labs CBC & Chem 7: 10/25/17 05:24 10/26/17 07:57 Labs: Short CBC 10/24/17 Range/Units 05:24 WBC 5.0 (4.3-11.1) K/mcL Hgb 9.8 L (11.5-15.4) g/dL Hct 29.0 L (35.3-44.9) % Plt Count 149 (140-400) K/mcL Neutrophils # 3.6 (1.6-8.9) K/mcL BMP 10/24/17 05:45 Sodium 130 L Potassium 3.0 L Chloride 106 Carbon Dioxide 14 L BUN 81 H Creatinine 3.46 H Glucose 95 Calcium 7.8 L Consult Discharge Plan - Plan Additional Instructions: F/up with PCP in 1-2 weeks F/up with [facility] in 4-6 weeks- Referrals: Hilary Henriquez DO [Primary Care Provider] - (web request 10/22/2017) Prescriptions: Megestrol Acetate [Megace] 400 mg PO DAILY 30 Days udc Sodium Bicarbonate 650 mg PO TID #60 tablet
[2017-10-25] MEDS: *HR* Heparin 5,000 UNIT/ML VIAL SQ SCH ×2 (04:53→17:27)
[2017-10-25 05:50] LABS: Basophils % 0.6 %; Eosinophils # 0.2 K/mcL (0.0-0.6); Eosinophils % 2.8 %; Hemoglobin 10.5 g/dL (11.5-15.4); Immature Granulocytes % 0.6 % (0-4); Lymphocytes # 0.8 K/mcL (0.6-4.6); Mean Corpuscular HGB Conc 33.9 g/dL (31.6-35.5); Mean Corpuscular Hemoglobin 31.3 pg (28.0-33.3); Mean Corpuscular Volume 92.5 fL (83.0-100.0); Monocytes # 0.5 K/mcL (0.0-1.3); Monocytes % 9.8 %; Neutrophils # 3.9 K/mcL (1.6-8.9); Platelet Count 149 K/mcL (140-400); Red Blood Count 3.35 M/mcL (3.82-4.97); Red Cell Distribution Width 14.6 % (11.5-14.5); Segmented Neutrophils % 72.2 %
[2017-10-25 06:15] LABS: Potassium 4.1 mEq/L (3.5-5.1); Uric Acid 9.5 mg/dL (2.3-7.6)
[2017-10-25] MEDS: Megestrol Acetate 400 MG/10 ML UDC PO SCH (08:37)
[2017-10-25] MEDS: 0.9 % Sodium Chloride 1,000 ML IVC SCH (08:38)
[2017-10-25] MEDS ORDERED: Sodium Bicarbonate 150 MEQ in D5% in Water 1,000 ML IVC SCH (09:30)
--- NOTE | 2017-10-25 10:43 | Nephrology Progress Note ---
Date of Encounter: 10/25/17 Time of Encounter: 10:41 - Assessment and Plan (1) Acute renal failure superimposed on chronic kidney disease Current Visit: No Status: Acute SARA on apparent CKD, possibly stage IV however the patient had normal renal function as late as July 2017 so it is unclear as to the chronicity of her renal disease. Serum creatinine continues to improve, we will switch her IV fluids to sodium bicarbonate drip given her metabolic acidosis. Uric acid was significantly elevated likely indicative of hypovolemia, this is trending down, we will continue to trend uric acid daily as a surrogate marker for volume status. Strict I's and O's. Continue with renal protective strategy by avoiding nephrotoxins and dosing medications based on GFR. Recommend BMP 1 week after discharge and follow up as outpatient Qualifiers: Acute renal failure type: unspecified Chronic kidney disease stage: stage 4 (severe) Qualified Code(s): N17.9 - Acute kidney failure, unspecified; N18.4 - Chronic kidney disease, stage 4 (severe); N18.4 - Chronic kidney disease , stage 4 (severe); N18.4 - Chronic kidney disease, stage 4 (severe); N18.4 - Chronic kidney disease, stage 4 (severe) (2) Metabolic acidosis Current Visit: No Status: Resolved Slightly worse today with her bicarbonate being 13. Non-anion gap. Likely multifactorial due to GI losses, SARA, continuous normal saline infusions. We will stop normal saline and give 3 units of bicarbonate in D5 1 L at 75 mL per hour. Continue oral sodium bicarbonate supplementation. Recommend continuing sodium bicarbonate supplementation at discharge. (3) Anemia Current Visit: No Status: Acute Hemoglobin is stable at 10.5 today. Continue to monitor. Qualifiers: Anemia type: unspecified type Qualified Code(s): D64.9 - Anemia, unspecified (4) Hyponatremia Current Visit: Yes Status: Acute Improved today, anticipate further improvement as her volume status improves. (5) Hypokalemia Current Visit: No Status: Acute Resolved (6) UTI (urinary tract infection) Current Visit: Yes Status: Acute Management per primary Qualifiers: Urinary tract infection type: acute cystitis Hematuria presence: with hematuria Qualified Code(s): N30.01 - Acute cystitis with hematuria (7) Metastatic colon cancer in female Current Visit: Yes Status: Chronic Subjective Principal diagnosis: Weakness Interval history: Patient seen and examined at bedside. She states that she continues to feel better. Her appetite is diminished but she reports being able to increase her by mouth fluid intake. She feels like her strength is slightly better. She denies fever, chills, chest pain, shortness of breath, nausea, vomiting. Objective - Vital Signs Vital signs: Vital Signs Temp Pulse Resp BP Pulse Ox 10/25/17 07:33 97.7 F 72 18 108/68 99 10/25/17 00:03 98.3 F 84 18 125/68 99 10/24/17 21:14 98.0 F 77 17 114/72 99 10/24/17 15:20 97.5 F L 88 16 101/62 99 10/24/17 10:55 97.3 F L 77 17 115/69 100 Intake and Output 10/24/17 10/25/17 10/25/17 23:59 07:59 15:59 Intake Total 1360 / 1360 1000 / 1000 120 / 120 Output Total 2200 / 2200 100 / 100 Balance -840 / -840 900 / 900 120 / 120 Intake: IV Fluids 1000 / 1000 1000 / 1000 0.9 % Sodium Chloride 1,000 ML 1000 / 1000 1000 / 1000 @ 100 mls/hr IVC .Q10H PENDING SALE TO [facility] Rx#: [id number] Oral 360 / 360 120 / 120 Output: Urine 450 / 450 100 / 100 Urine/Stool Mix 1750 / 1750 Other: Meal Dinner Breakfast Percent of Meal Consumed 25% 30% Stool Size Small Stool Consistency loose liquid Stool Characteristics Normal for Patient - General Appearance General appearance: Present: well-developed, well-nourished, appears started age EENT: Present: ATNC, mucous membranes moist Neck: Present: supple Cardiology: Present: no edema, regular rate, regular rhythm Gastrointestinal: Present: normoactive bowel sounds, no tenderness, no guarding Integumentary: Present: no rash, warm and dry Neurologic: Present: no focal deficit, alert and oriented x3 Musculoskeletal: Present: no cyanosis, no clubbing - Lab 10/25/17 05:24 10/25/17 05:24 Most recent lab results Calcium 8.0 mg/dL (8.6-10.3) L 10/25/17 05:24 Magnesium 2.2 mg/dL (1.6-2.6) 01/10/18 05:54 Consult Discharge Plan - Plan Referrals: Hilary Henriquez DO [Primary Care Provider] - (web request 10/22/2017)
--- NOTE | 2017-10-25 12:50 | Internal Med Progress Note ---
Date of Encounter: 10/25/17 Time of Encounter: 12:37 - Assessment and plan (1) Failure to thrive in adult Status: Chronic Assessment and plan: Patient has had multiple recent admissions with similar complaints. Likely related to underlying metastatic colon cancer. Continue supportive care with IV hydration, when necessary antiemetics, diet as tolerated. Continue Megace; (2) SARA (acute kidney injury) Status: Acute Assessment and plan: Likely prerenal due to poor oral intake and failure to thrive. Also noted to have metabolic acidosis. Continue IV hydration, change fluids to IV bicarbonate drip due to worsening metabolic acidosis. Serum sodium noted to be improving. Serum creatinine improving, 2.8 today. Nephrology on board, appreciate recommendations. (3) UTI (urinary tract infection) Status: Ruled-out Qualifiers: Urinary tract infection type: acute cystitis Hematuria presence: with hematuria Qualified Code(s): N30.01 - Acute cystitis with hematuria (4) Hyponatremia Status: Resolved (5) Metastatic colon cancer in female Status: Chronic - Subjective Interval history: No new complaints; resting comfortably in bed; continues to have some nausea and anorexia; - Constitutional Vitals: Temp Pulse Resp BP Pulse Ox 97.8 F 76 17 115/71 100 10/25/17 11:09 10/25/17 11:09 10/25/17 11:09 10/25/17 11:09 10/25/17 11:09 General appearance: Present: A&O X 3, no acute distress, answers questions appropriately - Respiratory Respiratory exam: Present: CTAB. Absent: accessory muscle use, rales, rhonchi, wheezes - Cardiovascular Cardiovascular exam: Present: RRR, +S1, +S2. Absent: diastolic murmur, gallop, rubs, systolic murmur Internal Medicine: Result - Labs CBC & Chem 7: 10/25/17 05:24 10/26/17 07:57 Labs: Short CBC 10/25/17 Range/Units 05:24 WBC 5.4 (4.3-11.1) K/mcL Hgb 10.5 L (11.5-15.4) g/dL Hct 31.0 L (35.3-44.9) % Plt Count 149 (140-400) K/mcL Neutrophils # 3.9 (1.6-8.9) K/mcL BMP 10/25/17 05:24 Sodium 134 L Potassium 4.1 D Chloride 108 H Carbon Dioxide 13 L BUN 65 H Creatinine 2.80 H Glucose 91 Calcium 8.0 L Consult Discharge Plan - Plan Additional Instructions: F/up with PCP in 1-2 weeks F/up with [facility] in 4-6 weeks- Referrals: Hilary Henriquez DO [Primary Care Provider] - (web request 10/22/2017) Prescriptions: Megestrol Acetate [Megace] 400 mg PO DAILY 30 Days udc Sodium Bicarbonate 650 mg PO TID #60 tablet
[2017-10-25] MEDS: cefTRIAXone 2,000 MG in 0.9 % Sodium Chloride Mini Bag 100 ML IVP SCH (22:52)
[2017-10-26] MEDS: *HR* Heparin 5,000 UNIT/ML VIAL SQ SCH (03:29)
[2017-10-26] MEDS: Megestrol Acetate 400 MG/10 ML UDC PO SCH (08:41)
[2017-10-26 11:08] VITALS: BP 100/66
--- NOTE | 2017-10-26 12:29 | Discharge Summary ---
Date of Encounter: 10/26/17 Time of Encounter: 12:27 - Discharge Diagnosis (1) Failure to thrive in adult Priority: Primary Status: Chronic (2) SARA (acute kidney injury) Priority: Primary Status: Acute (3) UTI (urinary tract infection) Priority: Primary Status: Ruled-out Qualifiers: Urinary tract infection type: acute cystitis Hematuria presence: with hematuria Qualified Code(s): N30.01 - Acute cystitis with hematuria (4) Hyponatremia Priority: Primary Status: Acute (5) Metastatic colon cancer in female Priority: Secondary Status: Chronic - Discharge Medications Prescriptions: Megestrol Acetate [Megace] 400 mg PO DAILY 30 Days udc Sodium Bicarbonate 650 mg PO TID #60 tablet Home Medications: Promethazine [Phenergan] 12.5 mg PO Q6HR PRN #30 tablet 10/09/17 [Rx] Megestrol Acetate [Megace] 400 mg PO DAILY 30 Days udc 10/26/17 [Rx] Sodium Bicarbonate 650 mg PO TID #60 tablet 10/26/17 [Rx] Allergies/Adverse Reactions: 3 Allergy/AdvReac Type Severity Reaction Status Date / Time No Known Allergies Allergy Verified 10/07/17 10:45 Date of admission: 10/21/17 23:01 Primary care physician: Reynaldo Mason Consults: 10/22/17 09:43 Consult to PICC team [Consult to Invasive Line Access Team] [CONS] Routine Reason for Consult: Multple IV failure. Line Type: PICC Discharging clinician: Ella López Anticipated date of discharge: 10/26/17 - Patient Status Disposition: Home Health Service Condition: Fair Functional capacity at discharge: independent ambulation Overall status at discharge: patient is progressing back to baseline - Ambulatory Orders Ambulatory Orders: Basic Metabolic Panel [CHEM] Time Frame: 1 Week, Facility: [facility], Location: Lab - Discharge Instructions Follow Up With: Hilary Henriquez DO [Primary Care Provider] - (web request 10/22/2017) Additional Instructions: F/up with PCP in 1-2 weeks F/up with [facility] in 4-6 weeks- - Diet and Activity Activity: as per physical therapy, resume usual activities as tolerated Diet: advance to your usual diet, regular diet Hospital course: Ms. Benito is a 67 year old female with the above medical problems, who was admitted with poor appetite, nausea and generalized weakness and noted to have acute renal failure. Patient likely has prerenal azotemia and was started on IV hydration. Nephrology was consulted and patient serum creatinine gradually improved. She was also noted to have metabolic acidosis and was started on IV bicarbonate drip with minimal improvement. She is being continued on oral sodium bicarbonate supplements. Patient has anorexia and poor oral intake likely related to underlying metastatic colon cancer, for which chemotherapy has been discontinued due to intolerance. Patient is encouraged to follow up with her oncologist for further plan of care. CODE STATUS has been discussed, she wishes to remain full code although she understands that her cancer is not curative. She was started on megestrol during this admission and is being provided with a prescription. According to previous notes, she has been discharged with this medication during her previous admission but I could not find it on her home medication list. Patient is currently medically stable for discharge with repeat labs in a week and follow-up with nephrology in 4-6 weeks. - Time Spent with Patient Total time spent providing and/or coordinating discharge services: Greater than 30 minutes (45 min) - Constitutional Vitals: Temp Pulse Resp BP Pulse Ox 97.7 F 85 16 100/66 100 10/26/17 11:04 10/26/17 11:04 10/26/17 11:04 10/26/17 11:04 10/26/17 11:04 General appearance: Present: A&O X 3, no acute distress, answers questions appropriately - Cardiovascular Cardiovascular exam: Present: RRR, +S1, +S2. Absent: diastolic murmur, gallop, rubs, systolic murmur
--- NOTE | 2017-10-26 12:37 | Physician Discharge Referral ---
Home Health/Hosp Referral Info Transfer to: Home Health Attending Provider: Ella López Provider in Charge Post Discharge: PCP - Diagnosis (1) Failure to thrive in adult Priority: Primary Status: Chronic (2) SARA (acute kidney injury) Priority: Primary Status: Acute (3) UTI (urinary tract infection) Priority: Primary Status: Ruled-out (4) Hyponatremia Priority: Primary Status: Acute (5) Metastatic colon cancer in female Priority: Secondary Status: Chronic - Respiratory Orders Smoking Cessation: Smoking cessation has been advised. For more information, call the [place] Tobacco Quit Line at 6-912-TMEY-NOW. - Diet/Nutrition Diet/Nutrition Orders: Regular - Activity Activity Orders: Ambulate - Services Needed Following services are medically necessary services: Nursing, Physical Therapy, Occupational Therapy - Transfer Medications Prescriptions: Megestrol Acetate [Megace] 400 mg PO DAILY 30 Days udc Sodium Bicarbonate 650 mg PO TID #60 tablet Home Medications: Promethazine [Phenergan] 12.5 mg PO Q6HR PRN #30 tablet 10/09/17 [Rx] Megestrol Acetate [Megace] 400 mg PO DAILY 30 Days udc 10/26/17 [Rx] Sodium Bicarbonate 650 mg PO TID #60 tablet 10/26/17 [Rx] Allergies/Adverse Reactions: 3 Allergy/AdvReac Type Severity Reaction Status Date / Time No Known Allergies Allergy Verified 10/07/17 10:45 Certification: Further, I certify that my clinical findings support that this patient is homebound (i.e. absences from home require considerable and taxing effort and are for medical reasons or buddhism services or infrequently or short duration when for other reasons) because: Homebound Reason: Patient requires assistance of a person or device to safely leave home, Leaving home requires considerable and taxing effort due to condition Attestation: My signature below is to certify that this patient is under my care and that I, or nurse practitioner, or a physician's health assistant working with me, has a face-to -face encounter with this patient.
[2017-10-26 13:29] LABS: Calcium 8.9 mg/dL (8.6-10.3); Magnesium 1.7 mg/dL (1.6-2.6); Potassium 4.3 mEq/L (3.5-5.1)
[2017-10-26] MEDS ORDERED: cefTRIAXone 2,000 MG in Water for inj. (sterile) 20 ML 20 ML IVP SCH (23:00)
== END 2017-10-26 14:37 | disposition home health service (06) | DRG 683 ==
LOC: EMEROO 18:41 → 2ANU 18:41 → SUATTDRO 23:01 → 2ANU 23:25
PROVIDERS: ADMIT Internal Medicine; ATTEND Internal Medicine